=== PATIENT | female | born 1940 | race Caucasian/White ===

== ENCOUNTER 2018-11-17 11:21 | Outpatient (CLI) | payer MEDICARE, OTHER, SELFPAY ==
[2018-11-17 13:32] LABS: Hemoglobin A1C 7.9 % (4.5-6.2)
== END 2018-11-17 11:41 ==
PROVIDERS: PCP Family Medicine; Visit Provider Family Medicine
DX: E11.9 Type 2 diabetes mellitus without complications (principal)
CPT/HCPCS: 36415; 83036

== ENCOUNTER 2019-01-14 14:40 | Emergency (ER) | payer MEDICARE, OTHER, SELFPAY ==
[2019-01-14 14:45] VITALS: BP 136/39; PULSE 63; RESP 16; TEMP 36.7; O2SAT 98
--- NOTE | 2019-01-14 14:46 | ED.GENADUL_ITS ---
Discharge Plan Disposition Patient Disposition: HOME Condition: Stable Discharge Details Chief Complaint: Laceration Clinical Impression: Left foot infection Primary Care Provider: Houston Hilario ED Provider: Mar Meade Home Meds and New Rx's Prescriptions: New cephalexin [Keflex] 500 mg capsule 500 mg PO QID 7 Days Qty: 28 RF: 0 Continued levothyroxine [Synthroid] 175 mcg tablet 175 mcg PO DAILY Qty: 90 RF: 4 lisinopril 5 mg tablet 5 mg PO DAILY Qty: 90 RF: 4 nitroglycerin [Nitrostat] 0.4 mg tablet, sublingual 0.4 mg Sublingual PRN Qty: 25 RF: 0 oxybutynin chloride [Ditropan XL] 10 mg tablet extended release 24hr 10 mg PO DAILY Qty: 90 RF: 4 metoprolol tartrate 50 mg tablet 50 mg PO BID Qty: 180 RF: 4 potassium gluconate 595 mg (99 mg) tablet 595 mg PO DAILY Qty: 90 RF: 3 simvastatin [Zocor] 20 mg tablet 20 mg PO HS Qty: 90 RF: 4 ASPIRIN 81 MG tablet 81 mg PO DAILY RF: 0 ascorbic acid (vitamin C) [Vitamin C] 500 MG tablet 500 mg PO BID RF: 0 loratadine [Claritin] 10 MG tablet 10 mg PO DAILY Qty: 90 RF: 4 Glucosamine Complex-MSM 1 EACH capsule 1 ea PO BID RF: 0 BD Insulin Syringe 1 EACH syringe 1 ea Sub-Q DIRECTED RF: 0 CALCIUM 600 + D TABLET 1 EACH tablet 1 ea PO BID RF: 0 SYSTANE 0.3-0.4% EYE DROPS 5 ML drops 1 drp OU DAILY RF: 0 loperamide [Anti-Diarrheal (loperamide)] 1 MG/5 ML liquid 4 mg PO PRN RF: 0 blood-glucose meter [[place], [place] [employer]Touch Ultra System Kit] 1 EACH kit 1 ea Miscellaneous QID Qty: 1 RF: 0 OneTouch Ultra Test 1 EACH strip 1 strip Sub-Q 5-6x/day Qty: 500 RF: 4 acetaminophen [Tylenol] 325 MG tablet 500 mg PO PRN RF: 0 meclizine 25 MG tablet,chewable 25 mg PO TID PRNQty: 30 RF: 0 Lantus U-100 Insulin 100 UNIT/1 ML solution 50 - 70 unit SQ BID Qty: 13 RF: 4 glipizide 5 MG tablet 5 mg PO BID Qty: 180 RF: 3 tramadol 50 mg tablet 50 - 100 mg PO QID PRN (Reason: back pain) Qty: 100 RF: 0 Novolog U-100 Insulin aspart 100 unit/mL solution 30 - 40 unit subcut AC Qty: 13 RF: 3 ropinirole 0.5 mg tablet 0.5 - 1.5 mg PO HS Qty: 270 RF: 3 buprenorphine [Butrans] 10 mcg/hour patch weekly 1 patch Transdermal weekly Qty: 4 RF: 0 Discharge Instructions Instructions: Cellulitis (ED) Additional Instructions: Keep the left foot clean, dry and covered. Wash the area with soap and water. Take the antibiotics until finished. Follow-up with your primary care doctor in 1 week for reevaluation. Return immediately to the emergency department any worsening or new concerning symptoms such as fever, increasing pain, redness, swelling or red streaking. Discharge Data Discharge Physician: Mar Meade Medical Decision Making 78-year-old female with history of diabetes who presents for left foot pain and foreign body sensation since yesterday. She denies known injury or fever. Her probed around the area last night and caused some bleeding but he did not find anything. Glucose controlled in the 140s. Vitals within normal limits. Patient appears nontoxic. There is a small pinpoint blood blister with an area of mild erythema, edema and tenderness palpation at the base of the lateral left toe near the foot. Will obtain a left foot x-ray to rule out foreign body. Will also anesthetize the area to attempt to probe to look for foreign body and/or open if small amount of pus. 1600 --x-ray negative for foreign body. Area was anesthetized, with a 3 mm incision with a 11 blade scalpel, area was explored and there was no obvious foreign body or pus noted. Area was then soaked in saline with Betadine, covered with antibiotic ointment and a dressing. Patient's had probed the area with a needle and forceps last night which was not cleaned prior to. Discussed that they need to sanitize any instruments before using, and this may have led to a local infection. I do not suspect a puncture wound as she does not recall a specific injury so I do not think fluoroquinolones indicated for puncture. A dose of Keflex was given here as well as a prescription for home. Instructed to keep the area clean, dry and covered, follow-up with the primary care doctor for reevaluation and to return here immediately if worse. Tetanus up to date 2011. Medical Records Medical records reviewed: Yes I reviewed the patient's medical records. Imaging Data Radiologic Study: Radiologist's impression: LEFT FOOT: Three views. No acute fracture or dislocation is seen. No radiopaque foreign bodies are seen in the soft tissues. There is soft tissue swelling about the mid foot. There is a moderate-sized spur at the plantar surface of the calcaneus. IMPRESSION: 1. No acute fracture or foreign body. 2. Soft tissue swelling of the foot. Lab Data Lab results reviewed: Yes I reviewed the patient's lab results. HPI General Mode of arrival: ambulatory . Date/Time Provider Initiated Documentation: 01/14/19 14:43 . Limitations to Documentation: no limitations . Information obtained by: patient . HPI Narrative: Patient is a 78-year-old female who presents with left foot pain and possible foreign body sensation since yesterday. Patient states she wears a soft slippers at home and she is unsure if she stepped on something. She states her last night attempted to take around the area and caused some bleeding but he could not find anything. She denies fever. She states her sugars have been controlled in the 140s. Related Data Home Medications Medication Instructions Recorded Confirmed Aspirin 81 mg PO DAILY tab-cap 01/13/13 01/14/19 BD Insulin Syringe 01/13/13 11/17/18 Calcium 600 + D Tablet 1 ea PO BID 01/13/13 01/14/19 Glucosamine Complex-MSM 1 ea PO BID 01/13/13 01/14/19 Systane 0.3-0.4% Eye Drops 1 drp OU DAILY 01/13/13 01/14/19 ascorbic acid (vitamin C) [Vitamin 500 mg PO BID 01/13/13 01/14/19 C] loratadine [Claritin] 10 mg PO DAILY #90 tab-cap 01/13/13 01/14/19 loperamide [Anti-Diarrheal 4 mg PO PRN ml 05/31/14 01/14/19 (loperamide)] blood-glucose meter [OneTouch #1 kit 06/23/14 11/17/18 Ultra System Kit] OneTouch Ultra Test #500 strip 01/24/17 11/17/18 acetaminophen [Tylenol] 500 mg PO PRN tab-cap 01/16/18 01/14/19 meclizine 25 mg PO TID PRN #30 tab-cap 02/04/18 01/14/19 Lantus U-100 Insulin 50 - 70 unit SQ BID #13 vial 03/13/18 01/14/19 glipizide 5 mg PO BID #180 tab-cap 07/03/18 01/14/19 tramadol 50 mg tablet 50 - 100 mg PO QID PRN #100 tab-cap 08/07/18 01/14/19 insulin aspart U- 100 100 unit/mL 30 - 40 unit SUBCUT AC #13 vial 09/17/18 01/14/19 subcutaneous solution levothyroxine 175 mcg tablet 175 mcg PO DAILY #90 tab-cap 11/17/18 01/14/19 lisinopril 5 mg tablet 5 mg PO DAILY #90 tab-cap 11/17/18 01/14/19 metoprolol tartrate 50 mg tablet 50 mg PO BID #180 tab-cap 11/17/18 01/14/19 nitroglycerin 0.4 mg sublingual 0.4 mg SUBLINGUAL PRN #25 tab-cap 11/17/18 01/14/19 tablet oxybutynin chloride ER 10 mg 10 mg PO DAILY #90 tab-cap 11/17/18 01/14/19 tablet,extended release 24 hr potassium gluconate 595 mg (99 mg) 595 mg PO DAILY #90 tab 11/17/18 01/14/19 tablet simvastatin 20 mg tablet 20 mg PO HS #90 tab-cap 11/17/18 01/14/19 ropinirole 0.5 mg tablet 0.5 - 1.5 mg PO HS #270 tab-cap 12/01/18 01/14/19 buprenorphine 10 mcg/hour weekly 1 patch TRANSDERMAL weekly #4 patch 12/18/18 01/14/19 transdermal patch cephalexin [Keflex] 500 mg PO QID 7 Days #28 cap 01/14/19 Previous Rx's Medication Instructions Recorded Lantus U-100 Insulin 50 - 70 unit SQ BID #13 vial 03/13/18 glipizide 5 mg PO BID #180 tab-cap 07/03/18 tramadol 50 mg tablet 50 - 100 mg PO QID PRN #100 tab-cap 08/07/18 insulin aspart U- 100 100 unit/mL 30 - 40 unit SUBCUT AC #13 vial 09/17/18 subcutaneous solution levothyroxine 175 mcg tablet 175 mcg PO DAILY #90 tab-cap 11/17/18 lisinopril 5 mg tablet 5 mg PO DAILY #90 tab-cap 11/17/18 metoprolol tartrate 50 mg tablet 50 mg PO BID #180 tab-cap 11/17/18 nitroglycerin 0.4 mg sublingual 0.4 mg SUBLINGUAL PRN #25 tab-cap 11/17/18 tablet oxybutynin chloride ER 10 mg 10 mg PO DAILY #90 tab-cap 11/17/18 tablet,extended release 24 hr potassium gluconate 595 mg (99 mg) 595 mg PO DAILY #90 tab 11/17/18 tablet simvastatin 20 mg tablet 20 mg PO HS #90 tab-cap 11/17/18 ropinirole 0.5 mg tablet 0.5 - 1.5 mg PO HS #270 tab-cap 12/01/18 buprenorphine 10 mcg/hour weekly 1 patch TRANSDERMAL weekly #4 patch 12/18/18 transdermal patch cephalexin [Keflex] 500 mg PO QID 7 Days #28 cap 01/14/19 Allergies Allergy/AdvReac Type Severity Reaction Status Date / Time lansoprazole AdvReac Intermediate anxiety Unverified 01/14/19 14:56 metoclopramide AdvReac Intermediate anxiety Unverified 01/14/19 14:56 erythromycin base AdvReac Unverified 01/14/19 14:56 ibuprofen AdvReac ABNORMAL Unverified 01/14/19 14:56 KIDNEY FUNCTIONS metformin AdvReac DIARRHEA Unverified 01/14/19 14:56 morphine patch AdvReac Intermediate Skin burn Uncoded 01/14/19 14:56 Review of Systems Review of Systems All systems reviewed & are unremarkable except as noted in HPI and below Constitutional Reports as per HPI, Denies chills and Denies fever(s) Eyes Denies blurry vision ENT Denies dizziness, Denies sore throat and Denies throat swelling Cardiovascular Denies chest pain and Denies dyspnea Respiratory Denies cough and Denies dyspnea Gastrointestinal Denies abdominal pain, Denies diarrhea and Denies vomiting Genitourinary Denies hematuria and Denies dysuria Musculoskeletal Denies back pain and Denies numbness Integumentary/Breasts Denies lesions and Denies rash Neurologic Denies dizziness, Denies focal weakness and Denies numbness Allergic/Immunologic Denies throat swelling [facility] Medical History Acute renal failure syndrome Atherosclerosis of coronary artery Diabetes mellitus, type 2 Essential hypertension Hypercholesterolemia Myocardial infarction bladder cancer Surgical History Amputation Appendectomy Biopsy of breast CARPAL TUNNEL Cholecystectomy Colonoscopy - IV Sedation EGD - IV Sedation Extraction of cataract PROCEDURES Stent placement (~1996) Family History Mother Diabetes Essential hypertension Heart disease Hyperlipidemia Father Diabetes Essential hypertension Heart disease Hyperlipidemia Myocardial infarction Sister No problems noted. Brother Essential hypertension Heart disease Hyperlipidemia Myocardial infarction Grandfather No problems noted. Grandfather No problems noted. Grandmother Diabetes Essential hypertension Hyperlipidemia Grandmother No problems noted. Son No problems noted. Daughter No problems noted. Social History Smoking/Tobacco Use Status: Former Tobacco Use Quit Date: 12/07/85 Alcohol Intake: current Alcohol Intake frequency: holidays/special occasions only Drug use: Never Substance use type: does not use Do you feel safe at home: Yes Do you feel safe in your relationship?: Yes Exam Const General: cooperative, healthy appearing and no acute distress HENMT Head: normal to inspection Mouth: oral mucosae normal Eyes General: appearance normal, both eyes and all related structures Neck Neck: normal visual inspection Resp Effort & Inspection: normal respiratory effort and able to speak in complete sentences Cardio Rate: regular rate Skin General skin exam: no rashes or lesions noted Neuro General: alert, awake and oriented x3 Motor: muscle tone normal throughout Extrem Other: Left foot on lateral aspect near base of fifth toe notes a pinpoint area of a blood blister with a 1 cm area of circumferential erythema and mild edema with tenderness palpation. No obvious abscess. Psych Appearance: grossly normal Affect: normal affect Procedures Abscess I/D Site: Foot Side (if applicable): Left Local Anesthetic: Lidocaine 1% Amount of anesthesia used (mL): 2 Technique: Incised with #11 Blade Irrigation: Yes Packing used?: None Complications: Other (3mm incision made with blade. Area probed with forceps and no foreign body. No pus drainage)
--- NOTE | 2019-01-14 15:26 | DI.RAD_ITS ---
SYMPTOMS/DIAGNOSIS: LEFT LATERAL BASE OF 5TH TOE REDNESS, PAIN, ? FRACTURE VS FOREIGN BODY LEFT FOOT: Three views. No acute fracture or dislocation is seen. No radiopaque foreign bodies are seen in the soft tissues. There is soft tissue swelling about the mid foot. There is a moderate-sized spur at the plantar surface of the calcaneus. IMPRESSION: 1. No acute fracture or foreign body. 2. Soft tissue swelling of the foot.
[2019-01-14] MEDS: Cephalexin 500 MG CAP PO (16:22)
[2019-01-14 16:54] VITALS: BP 136/39; PULSE 63; RESP 16; TEMP 36.7; O2SAT 98
== END 2019-01-14 16:55 | disposition home or self-care (01) ==
PROVIDERS: Emergency Provider Physician Assistant; PCP Family Medicine
DX: L08.9 Local infection of the skin and subcutaneous tissue, unspecified (principal); I10 Essential (primary) hypertension; E11.9 Type 2 diabetes mellitus without complications; Z79.4 Long term (current) use of insulin
CPT/HCPCS: 99283; 73630

== ENCOUNTER 2019-03-05 11:39 | Outpatient (CLI) | payer MEDICARE, OTHER, SELFPAY ==
[2019-03-05 13:16] LABS: CREATININE 1.18 mg/dL (0.55-1.02); Estimated GFR 44.18 (mL/min/1.73m2); Potassium 4.2 mmol/L (3.5-5.1); TSH (W/Ref FT4) 0.66 uIU/mL (0.358-3.74)
== END 2019-03-05 11:59 ==
PROVIDERS: PCP Family Medicine; Visit Provider Family Medicine
DX: I10 Essential (primary) hypertension (principal); E11.9 Type 2 diabetes mellitus without complications; E03.9 Hypothyroidism, unspecified
CPT/HCPCS: 36415; 82565; 83036; 84132; 84443

== ENCOUNTER 2019-04-15 16:26 | Emergency (ER) | payer MEDICARE, OTHER, SELFPAY ==
[2019-04-15 16:33] VITALS: BP 155/54; PULSE 67; RESP 16; TEMP 36.7; O2SAT 96
--- NOTE | 2019-04-15 16:41 | DI.RAD_ITS ---
SYMPTOM/DIAGNOSIS: SKILL SAW TO FINGER TIPS LEFT HAND: Three views. There is a markedly comminuted and displaced fracture of the terminal tuft of the left middle finger with adjacent soft tissue swelling. There is a markedly comminuted and displaced fracture involving the terminal tuft of the left index finger with adjacent soft tissue swelling. No other fracture or dislocation is seen. No radiopaque foreign bodies are seen in the soft tissues. Mild degenerative changes are seen at the hand. There are marked degenerative changes seen at the first carpal metacarpal joint. IMPRESSION: Severely comminuted and displaced fractures involving the terminal augustin of the left middle and index fingers.
--- NOTE | 2019-04-15 16:47 | ED.GENADUL_ITS ---
Discharge Plan Disposition Patient Disposition: HOME Condition: Good Discharge Details Chief Complaint: Laceration Clinical Impression: Finger laceration, Finger fracture Primary Care Provider: Houston Hilario ED Provider: Fredy Whittaker Home Meds and New Rx's Prescriptions: New cephalexin [Keflex] 500 mg capsule 500 mg PO QID 7 Days Qty: 28 RF: 0 No Action Novolog U-100 Insulin aspart 100 unit/mL solution 20 - 40 unit subcut AC Qty: 13 RF: 3 Lantus U-100 Insulin 100 unit/mL solution 30 - 50 unit subcut BID Qty: 8 RF: 4 tramadol 50 mg tablet 50 - 100 mg PO QID PRN (Reason: back pain) Qty: 100 RF: 0 levothyroxine [Synthroid] 175 mcg tablet 175 mcg PO DAILY Qty: 90 RF: 4 lisinopril 5 mg tablet 5 mg PO DAILY Qty: 90 RF: 4 nitroglycerin [Nitrostat] 0.4 mg tablet, sublingual 0.4 mg Sublingual PRN Qty: 25 RF: 0 oxybutynin chloride [Ditropan XL] 10 mg tablet extended release 24hr 10 mg PO DAILY Qty: 90 RF: 4 metoprolol tartrate 50 mg tablet 50 mg PO BID Qty: 180 RF: 4 potassium gluconate 595 mg (99 mg) tablet 595 mg PO DAILY Qty: 90 RF: 3 simvastatin [Zocor] 20 mg tablet 20 mg PO HS Qty: 90 RF: 4 ASPIRIN 81 MG tablet 81 mg PO DAILY RF: 0 ascorbic acid (vitamin C) [Vitamin C] 500 MG tablet 500 mg PO BID RF: 0 loratadine [Claritin] 10 MG tablet 10 mg PO DAILY Qty: 90 RF: 4 Glucosamine Complex-MSM 1 EACH capsule 1 ea PO BID RF: 0 BD Insulin Syringe 1 EACH syringe 1 ea Sub-Q DIRECTED RF: 0 CALCIUM 600 + D TABLET 1 EACH tablet 1 ea PO BID RF: 0 SYSTANE 0.3-0.4% EYE DROPS 5 ML drops 1 drp OU DAILY RF: 0 loperamide [Anti-Diarrheal (loperamide)] 1 MG/5 ML liquid 4 mg PO PRN RF: 0 blood-glucose meter [[employer] Ultra System Kit] 1 EACH kit 1 ea Miscellaneous QID Qty: 1 RF: 0 OneTouch Ultra Test 1 EACH strip 1 strip Sub-Q 5-6x/day Qty: 500 RF: 4 acetaminophen [Tylenol] 325 MG tablet 500 mg PO PRN RF: 0 meclizine 25 MG tablet,chewable 25 mg PO TID PRNQty: 30 RF: 0 glipizide 5 MG tablet 5 mg PO BID Qty: 180 RF: 3 ropinirole 0.5 mg tablet 0.5 - 1.5 mg PO HS Qty: 270 RF: 3 buprenorphine [Butrans] 10 mcg/hour patch weekly 1 patch Transdermal weekly Qty: 4 RF: 0 Discharge Instructions Instructions: Finger Fracture (ED), Finger Laceration (ED) Additional Instructions: Will be contacted by the orthopedic surgeon for an appointment. You can change the dressing on your fingers for the dry dressing daily. Please you leave the yellow dressing. Please take the antibiotic as directed. Please take Tylenol and Motrin for control of your pain. If you notice redness, discharge, worsening pain please return immediately for reassessment. Referrals: Medhat Sanon MD [ [facility] STAFF PHYSICIAN] - Medical Decision Making This is a pleasant 78-year-old female with past medical history of diabetes and coronary artery disease who presents today for evaluation of laceration to her nondominant index and middle finger on the left hand. It occurred an hour ago. A skill saw cut the tips of her fingers. Exam demonstrates notably destroyed distal tip of the index finger with a remove nail, and some bony exposure, in conjunction with a linear laceration of the distal tip of the middle finger. We will get an x-ray to evaluate for bony destruction. She will require laceration repair, however I am concerned that she may require removal of components of the bone for wound edge approximation for her index finger. Tetanus is up-to-date X-ray results do demonstrate evidence of severely comminuted fractures the distal components of the phalanx for the middle and index finger. The nail is completely gone for the middle finger, and multiple bony fragments are present. We did attempt to contact Dr. Cavanaugh who is on-call over 4 times, after 2 hours of no response, registration did contact Dr. Sanon, who then contacted the ED. The images on x-ray, as well as secure images of the patient's fingers were sent to Dr. Sanon which she reviewed. At this time he recommends suturing for basic wound edge reapproximation, and close outpatient follow-up for potential amputation. 7 simple interrupted sutures with 4-0 Ethilon were placed between the 2 fingers, for basic wound edge reapproximation. The area was then covered with nonadhesive gauze, and then bandaged with gauze. The patient tolerated this well. Secondary to the open component, the patient was given a dose of Keflex here in the ED and will be given a prescription for home Keflex. We discussed the importance of prompt follow-up, as well as red flags for which to immediately return. I suspect both a bony and ligamentous injury component. Of note after the patient was discharged, Dr. Cavanaugh did call back, as there had been an issue with his pager and phone. The case was again discussed with him as well as the plan directed by Dr. Medhat Sanon. He agrees with the decision, and has no additional recommendations at this time. I have exte nsively reviewed the treatment plan and discharge instructions with the patient and their family. I have addressed all patient concerns at this time. The patient and family was made aware of what symptoms to monitor for that would warrant a return to the emergency department. Discussed the plan with the patient and family, they demonstrate verbal understanding and agreement with our assessment and plan at this time. Laceration repair: Patient's index and middle finger were blocked with a 50-50 mixture of lidocaine and bupivacaine, digital block was performed with a total of 10 cc of this mix ture being placed. Patient tolerated this well and achieved complete anesthesia of the fingertips. After this, the areas were scrubbed vigorously with normal saline and chlorhexidine scrub wrist. Excess bony and skin tissue were removed. 3 simple interrupted sutures were placed on the middle finger for generalized wound edge reapproximation. This is notably limited secondary to the comminuted fracture below the nail remnant. 4 simple interrupted sutures were placed on the index finger, for wound edge reapproximation. Patient tolerated this as well. The area was then dressed appropriately. CLINICAL HISTORY: 78 years old, female; Pain; Finger(s) and hand; Left; Patient HX: Skill saw injury to lt fingers (middle \T\ index). TECHNIQUE: Imaging protocol: XR Left hand. Views: 3 or more views. COMPARISON: No relevant prior studies available. FINDINGS: Bones/joints: Severely comminuted fractures/partial amputation of the augustin of the middle finger distal phalanx with severe distraction of minute fracture fragments. Similar fracture/partial amputation to the tuft of the index finger distal phalanx, however with lesser degree of distraction of minute fracture fragments. No other acutely displaced fractures are otherwise seen. Severe osteoarthritis at the first and second carpometacarpal joints, as manifested by almost complete loss of the joint space, subchondral sclerosis, subchondral cyst formation, marginal osteophyte formation. Soft tissues: Significant soft tissue swelling, laceration, and nail injury suggested at the tips of the index and middle fingers. IMPRESSION: 1. Severely comminuted fractures/partial amputations of the distal phalanx augustin of the middle and index fingers (distal augustin appear essentially macerated) with associated significant soft tissue and nail injury, as detailed above. 2. Osteoarthritis. Dictated and Authenticated by: Ousmane Rodriguez MD. Ordering:REBECCA Daniel MD HPI General Date/Time Provider Initiated Documentation: 04/15/19 16:36 . HPI Narrative: This is a 78-year-old female who takes a daily aspirin whose tetanus was updated in 2011 with a past medical history of diabetes, coronary artery disease who presents today for evaluation of laceration to her left nondominant hand on the index middle finger. She is working with a skill saw when it caught the tips of her fingers on these 2 fingers. She does admit to slight tingling sensation on the distal tips, but denies any other complaints. This occurred roughly 1 hour ago. She denies any pain in her hand arm face chest abdomen or pelvis. No other modifying factors. No other injuries. Related Data Home Medications Medication Instructions Recorded Confirmed Aspirin 81 mg PO DAILY tab-cap 01/13/13 04/15/19 BD Insulin Syringe 01/13/13 03/05/19 Calcium 600 + D Tablet 1 ea PO BID 01/13/13 04/15/19 Glucosamine Complex-MSM 1 ea PO BID 01/13/13 04/15/19 Systane 0.3-0.4% Eye Drops 1 drp OU DAILY 01/13/13 04/15/19 ascorbic acid (vitamin C) [Vitamin 500 mg PO BID 01/13/13 04/15/19 C] loratadine [Claritin] 10 mg PO DAILY #90 tab-cap 01/13/13 04/15/19 loperamide [Anti-Diarrheal 4 mg PO PRN ml 05/31/14 04/15/19 (loperamide)] blood-glucose meter [OneTouch #1 kit 06/23/14 03/05/19 Ultra System Kit] [employer] Social[employer] Ultra Test #500 strip 01/24/17 03/05/19 acetaminophen [Tylenol] 500 mg PO PRN tab-cap 01/16/18 04/15/19 meclizine 25 mg PO TID PRN #30 tab-cap 02/04/18 04/15/19 glipizide 5 mg PO BID #180 tab-cap 07/03/18 04/15/19 levothyroxine 175 mcg tablet 175 mcg PO DAILY #90 tab-cap 11/17/18 04/15/19 lisinopril 5 mg tablet 5 mg PO DAILY #90 tab-cap 11/17/18 04/15/19 metoprolol tartrate 50 mg tablet 50 mg PO BID #180 tab-cap 11/17/18 04/15/19 nitroglycerin 0.4 mg sublingual 0.4 mg SUBLINGUAL PRN #25 tab-cap 11/17/18 04/15/19 tablet oxybutynin chloride ER 10 mg 10 mg PO DAILY #90 tab-cap 11/17/18 04/15/19 tablet,extended release 24 hr potassium gluconate 595 mg (99 mg) 595 mg PO DAILY #90 tab 11/17/18 04/15/19 tablet simvastatin 20 mg tablet 20 mg PO HS #90 tab-cap 11/17/18 04/15/19 ropinirole 0.5 mg tablet 0.5 - 1.5 mg PO HS #270 tab-cap 12/01/18 04/15/19 buprenorphine 10 mcg/hour weekly 1 patch TRANSDERMAL weekly #4 patch 03/01/19 04/15/19 transdermal patch insulin aspart U- 100 100 unit/mL 20 - 40 unit SUBCUT AC #13 vial 03/05/19 04/15/19 subcutaneous solution insulin glargine (U- 100) 100 30 - 50 unit SUBCUT BID #8 vial 03/05/19 04/15/19 unit/mL subcutaneous solution tramadol 50 mg tablet 50 - 100 mg PO QID PRN #100 tab-cap 03/05/19 04/15/19 cephalexin [Keflex] 500 mg PO QID 7 Days #28 cap 04/15/19 Previous Rx's Medication Instructions Recorded glipizide 5 mg PO BID #180 tab-cap 07/03/18 levothyroxine 175 mcg tablet 175 mcg PO DAILY #90 tab-cap 11/17/18 lisinopril 5 mg tablet 5 mg PO DAILY #90 tab-cap 11/17/18 metoprolol tartrate 50 mg tablet 50 mg PO BID #180 tab-cap 11/17/18 nitroglycerin 0.4 mg sublingual 0.4 mg SUBLINGUAL PRN #25 tab-cap 11/17/18 tablet oxybutynin chloride ER 10 mg 10 mg PO DAILY #90 tab-cap 11/17/18 tablet,extended release 24 hr potassium gluconate 595 mg (99 mg) 595 mg PO DAILY #90 tab 11/17/18 tablet simvastatin 20 mg tablet 20 mg PO HS #90 tab-cap 11/17/18 ropinirole 0.5 mg tablet 0.5 - 1.5 mg PO HS #270 tab-cap 12/01/18 buprenorphine 10 mcg/hour weekly 1 patch TRANSDERMAL weekly #4 patch 03/01/19 transdermal patch insulin aspart U- 100 100 unit/mL 20 - 40 unit SUBCUT AC #13 vial 03/05/19 subcutaneous solution insulin glargine (U- 100) 100 30 - 50 unit SUBCUT BID #8 vial 03/05/19 unit/mL subcutaneous solution tramadol 50 mg tablet 50 - 100 mg PO QID PRN #100 tab-cap 03/05/19 cephalexin [Keflex] 500 mg PO QID 7 Days #28 cap 04/15/19 Allergies Allergy/AdvReac Type Severity Reaction Status Date / Time lansoprazole AdvReac Intermediate anxiety Unverified 04/15/19 16:37 metoclopramide AdvReac Intermediate anxiety Unverified 04/15/19 16:37 erythromycin base AdvReac Unverified 04/15/19 16:37 ibuprofen AdvReac ABNORMAL Unverified 04/15/19 16:37 KIDNEY FUNCTIONS metformin AdvReac DIARRHEA Unverified 04/15/19 16:37 morphine patch AdvReac Intermediate Skin burn Uncoded 04/15/19 16:37 General Stated Complaint: Laceration PAUL: 3 Review of Systems Review of Systems All systems reviewed & are unremarkable except as noted in HPI and below PFSH Social History Smoking/Tobacco Use Status: Former Tobacco Use Quit Date: 12/07/85 Alcohol Intake: current Alcohol Intake frequency: holidays/special occasions only Drug use: Never Substance use type: does not use Do you feel safe at home: Yes Do you feel safe in your relationship?: Yes Exam Narrative Exam Narrative: 1.Const: Well-nourished, Well-developed, appearing stated age 2.Eyes: PERRL, no conjunctival injection, and symmetrical lids. 3.ENT: Atraumatic external nose and ears. Moist MM. Neck: Symmetric, trachea midline, No thyromegaly. 4.CVS: +S1/S2, No murmurs or gallops. Peripheral pulses 2+ and equal in all extremities. Brisk capillary refill in all extremities. 5.RESP: Unlabored respiratory effort. Clear to auscultation bilaterally. No wheezes rales or rhonchi 6.GI: Soft, Nontender/Nondistended, No hepatosplenomegaly. No guarding or rebound. 7.MSK: Exam demonstrates removal of the nail for the index finger with destruction of the distal tip, potential bony exposure. Middle finger demonstrates laceration over the distal tip of the fingers well. She is able to flex and extend the distal tips, however extension of the index finger is more limited secondary to pain. I do suspect a tendon injury though. Sensation including two-point discrimination is intact on the lateral aspects of the finger however on the distal tip sensation is intact but notably reduced. Unable to differentiate between two-point discrimination over the masticated tissue. 8.Skin: Please see musculoskeletal 9.Neuro: conference planning manager II-XII grossly intact. Please see muscu skeletal 10.Psych: (AAO) x3. Appropriate mood and affect Course Vital Signs Temperature 36.7 C 04/15/19 16:33 Pulse 67 04/15/19 16:33 Respiratory Rate 16 04/15/19 16:33 Blood Pressure 155/54 H 04/15/19 16:33 Pulse Oximetry 96 04/15/19 16:33 Temperature 36.7 C 04/15/19 16:33 Temperature Source Skin 04/15/19 16:33 Pulse 67 04/15/19 16:33 Respiratory Rate 16 04/15/19 16:33 Respiratory Effort Non-Labored 04/15/19 16:35 Blood Pressure 155/54 H 04/15/19 16:33 Pulse Oximetry 96 04/15/19 16:33 Pain Level 5 04/15/19 16:33
--- NOTE | 2019-04-15 17:37 | DI.VRAD_ITS ---
EXAM: XR Left Hand EXAM DATE/TIME: 04/15/2019 4:54 PM CLINICAL HISTORY: 78 years old, female; Pain; Finger(s) and hand; Left; Patient HX: Skill saw injury to lt fingers (middle \T\ index). TECHNIQUE: Imaging protocol: XR Left hand. Views: 3 or more views. COMPARISON: No relevant prior studies available. FINDINGS: Bones/joints: Severely comminuted fractures/partial amputation of the augustin of the middle finger distal phalanx with severe distraction of minute fracture fragments. Similar fracture/partial amputation to the tuft of the index finger distal phalanx, however with lesser degree of distraction of minute fracture fragments. No other acutely displaced fractures are otherwise seen. Severe osteoarthritis at the first and second carpometacarpal joints, as manifested by almost complete loss of the joint space, subchondral sclerosis, subchondral cyst formation, marginal osteophyte formation. Soft tissues: Significant soft tissue swelling, laceration, and nail injury suggested at the tips of the index and middle fingers. IMPRESSION: 1. Severely comminuted fractures/partial amputations of the distal phalanx augustin of the middle and index fingers (distal augustin appear essentially macerated) with associated significant soft tissue and nail injury, as detailed above. 2. Osteoarthritis. Dictated and Authenticated by: Ousmane Rodriguez MD. Ordering:REBECCA Daniel MD
[2019-04-15] MEDS: Cephalexin 500 MG CAP PO (20:05)
[2019-04-15 20:06] VITALS: BP 155/54; PULSE 67; RESP 16; O2SAT 96
== END 2019-04-15 20:00 | disposition home or self-care (01) ==
PROVIDERS: Emergency Provider Student in an Organized Health Care Education/Training Program; PCP Family Medicine
DX: S62.631B Displaced fracture of distal phalanx of left index finger, initial encounter for open fracture (principal); S62.633B Displaced fracture of distal phalanx of left middle finger, initial encounter for open fracture; W31.2XXA Contact with powered woodworking and forming machines, initial encounter; I25.10 Atherosclerotic heart disease of native coronary artery without angina pectoris; E11.9 Type 2 diabetes mellitus without complications; I10 Essential (primary) hypertension; Z79.4 Long term (current) use of insulin
CPT/HCPCS: 12002; 26720; 73130

== ENCOUNTER 2019-04-16 10:51 | Day surgery (SDC) | payer MEDICARE, OTHER, SELFPAY ==
[2019-04-16 11:05] VITALS: BP 146/66; PULSE 64; RESP 18; TEMP 36.3; O2SAT 98
[2019-04-16] MEDS: Normal Saline Flush 10 ML SYR IV (11:59)
--- NOTE | 2019-04-16 13:26 | W.PM.DSUDISC ---
Discharge Plan Disposition Patient Disposition: HOME Condition: Good Discharge Details Reason For Visit: LIF, LMF partial amputation Attending Provider: Medhat Sanon Primary Care Provider: [place] Hilario Home Meds and New Rx's Prescriptions: New acetaminophen 500 mg tablet 1,000 mg PO Q8H PRN (Reason: pain) Qty: 60 RF: 3 ibuprofen 600 mg tablet 600 mg PO TID PRNQty: 30 RF: 3 Continued Novolog U-100 Insulin aspart 100 unit/mL solution 20 - 40 unit subcut AC Qty: 13 RF: 3 Lantus U-100 Insulin 100 unit/mL solution 30 - 50 unit subcut BID Qty: 8 RF: 4 tramadol 50 mg tablet 50 - 100 mg PO QID PRN (Reason: back pain) Qty: 100 RF: 0 levothyroxine [Synthroid] 175 mcg tablet 175 mcg PO DAILY Qty: 90 RF: 4 lisinopril 5 mg tablet 5 mg PO DAILY Qty: 90 RF: 4 nitroglycerin [Nitrostat] 0.4 mg tablet, sublingual 0.4 mg Sublingual PRN Qty: 25 RF: 0 oxybutynin chloride [Ditropan XL] 10 mg tablet extended release 24hr 10 mg PO DAILY Qty: 90 RF: 4 metoprolol tartrate 50 mg tablet 50 mg PO BID Qty: 180 RF: 4 potassium gluconate 595 mg (99 mg) tablet 595 mg PO DAILY Qty: 90 RF: 3 simvastatin [Zocor] 20 mg tablet 20 mg PO HS Qty: 90 RF: 4 ASPIRIN 81 MG tablet 81 mg PO DAILY RF: 0 ascorbic acid (vitamin C) [Vitamin C] 500 MG tablet 500 mg PO BID RF: 0 loratadine [Claritin] 10 MG tablet 10 mg PO DAILY Qty: 90 RF: 4 Glucosamine Complex-MSM 1 EACH capsule 1 ea PO BID RF: 0 BD Insulin Syringe 1 EACH syringe 1 ea Sub-Q DIRECTED RF: 0 CALCIUM 600 + D TABLET 1 EACH tablet 1 ea PO BID RF: 0 SYSTANE 0.3-0.4% EYE DROPS 5 ML drops 1 drp OU DAILY RF: 0 loperamide [Anti-Diarrheal (loperamide)] 1 MG/5 ML liquid 4 mg PO PRN RF: 0 blood-glucose meter [[employer] Ultra System Kit] 1 EACH kit 1 ea Miscellaneous QID Qty: 1 RF: 0 OneTouch Ultra Test 1 EACH strip 1 strip Sub-Q 5-6x/day Qty: 500 RF: 4 meclizine 25 MG tablet,chewable 25 mg PO TID PRNQty: 30 RF: 0 glipizide 5 MG tablet 5 mg PO BID Qty: 180 RF: 3 ropinirole 0.5 mg tablet 0.5 - 1.5 mg PO HS Qty: 270 RF: 3 buprenorphine [Butrans] 10 mcg/hour patch weekly 1 patch Transdermal weekly Qty: 4 RF: 0 cephalexin [Keflex] 500 mg capsule 500 mg PO QID 7 Days Qty: 28 RF: 0 Discontinued acetaminophen [Tylenol] 325 MG tablet 500 mg PO PRN RF: 0 Discharge Instructions Additional Instructions: Activity: You should limit using the operative fingers. Elevate as much as possible. Dressings: You should keep the initial surgical dressing in place until your follow-up. If the tails wrapped around the wrist bother or become loose, you may cut them off. If the dressing comes off, you can replace with a light gauze wrap. You should keep the dressings and the wound clean at all times. Medications: - You should take Tylenol and Ibuprofen around the clock as prescribed or per aircraft pneudraulic systems mechanic's recommendations. 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
--- NOTE | 2019-04-16 13:28 | HPE_ITS ---
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 Based on the pictures and the x-rays there is bony involvement as well as nail involvement. I am concerne d that she does not have adequate coverage of the distal phalanx the middle finger. This was a dirty injury with a complex laceration and therefore the plan will be for operative debridement with evaluation. I want to ensure that the bone is well covered. There is many bony fragment seen on the x-ray which we will hopefully debride. My attempt will be to close this without putting stress on the sterile matrix. However, if there is no sterile matrix adherent to the distal phalanx of the middle finger then we will perform a revision imitation. I discussed all these options with Maria Dolores. I reviewed the risk of the procedure to include bleeding, infection, pain, stiffness, dysesthesias and cold intolerance, infection, need for repeat procedures, need for revision amputation, nail deformity. Despite these risks, she elected to proceed. 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 Her fingers excellently caught the blade of the table saw with notable deformity. She was seen in the emergency department by Dr. Whittaker. He had concern about the viability of the some the tissue as well as the exposed bone in the area. The wounds were generously irrigated and temporally closed and I recommended operative debridement and evaluation with possible revision amputation or complex repair. Maria Dolores denies having much pain. She does have a amputation on her right middle finger for infection. She has had no drainage from the wounds. She denies any fevers or chills. She has been taking antibiotics. Review of Systems Review of Systems All systems reviewed & are unremarkable except as noted in HPI and below PFSH Medical History Acute renal failure syndrome Atherosclerosis of coronary artery Diabetes mellitus, type 2 Essential hypertension Hypercholesterolemia Myocardial infarction bladder cancer Surgical History Amputation Appendectomy Biopsy of breast CARPAL TUNNEL Cholecystectomy Colonoscopy - IV Sedation EGD - IV Sedation Extraction of cataract PROCEDURES Stent placement (~1996) Family History Mother Diabetes Essential hypertension Heart disease Hyperlipidemia Father Diabetes Essential hypertension Heart disease Hyperlipidemia Myocardial infarction Sister No problems noted. Brother Essential hypertension Heart disease Hyperlipidemia Myocardial infarction Grandfather No problems noted. Grandfather No problems noted. Grandmother Diabetes Essential hypertension Hyperlipidemia Grandmother No problems noted. Son No problems noted. Daughter No problems noted. Social History Smoking/Tobacco Use Status: Former Tobacco Use Quit Date: 12/07/85 Alcohol Intake: current Alcohol Intake frequency: holidays/special occasions only Drug use: Never Substance use type: does not use Do you feel safe at home: Yes Do you feel safe in your relationship?: Yes Meds Home Medications Medication Instructions Recorded Confirmed Type Aspirin 81 mg PO DAILY tab-cap 01/13/13 04/16/19 History BD Insulin Syringe 01/13/13 03/05/19 History Calcium 600 + D Tablet 1 ea PO BID 01/13/13 04/16/19 History Glucosamine Complex-MSM 1 ea PO BID 01/13/13 04/16/19 History Systane 0.3-0.4% Eye Drops 1 drp OU DAILY 01/13/13 04/16/19 History ascorbic acid (vitamin C) [Vitamin 500 mg PO BID 01/13/13 04/16/19 History C] loratadine [Claritin] 10 mg PO DAILY #90 tab-cap 01/13/13 04/16/19 History loperamide [Anti-Diarrheal 4 mg PO PRN ml 05/31/14 04/15/19 History (loperamide)] blood-glucose meter [OneTouch #1 kit 06/23/14 03/05/19 History Ultra System Kit] OneTouch Ultra Test #500 strip 01/24/17 03/05/19 History meclizine 25 mg PO TID PRN #30 tab-cap 02/04/18 04/16/19 History glipizide 5 mg PO BID #180 tab-cap 07/03/18 04/16/19 Rx levothyroxine 175 mcg tablet 175 mcg PO DAILY #90 tab-cap 11/17/18 04/16/19 Rx lisinopril 5 mg tablet 5 mg PO DAILY #90 tab-cap 11/17/18 04/16/19 Rx metoprolol tartrate 50 mg tablet 50 mg PO BID #180 tab-cap 11/17/18 04/16/19 Rx nitroglycerin 0.4 mg sublingual 0.4 mg SUBLINGUAL PRN #25 tab-cap 11/17/18 04/16/19 Rx tablet oxybutynin chloride ER 10 mg 10 mg PO DAILY #90 tab-cap 11/17/18 04/16/19 Rx tablet,extended release 24 hr potassium gluconate 595 mg (99 mg) 595 mg PO DAILY #90 tab 11/17/18 04/16/19 Rx tablet simvastatin 20 mg tablet 20 mg PO HS #90 tab-cap 11/17/18 04/16/19 Rx ropinirole 0.5 mg tablet 0.5 - 1.5 mg PO HS #270 tab-cap 12/01/18 04/16/19 Rx buprenorphine 10 mcg/hour weekly 1 patch TRANSDERMAL weekly #4 patch 03/01/19 04/16/19 Rx transdermal patch insulin aspart U- 100 100 unit/mL 20 - 40 unit SUBCUT AC #13 vial 03/05/19 04/16/19 Rx subcutaneous solution insulin glargine (U- 100) 100 30 - 50 unit SUBCUT BID #8 vial 03/05/19 04/16/19 Rx unit/mL subcutaneous solution tramadol 50 mg tablet 50 - 100 mg PO QID PRN #100 tab-cap 03/05/19 04/16/19 Rx cephalexin [Keflex] 500 mg PO QID 7 Days #28 cap 04/15/19 04/16/19 Rx acetaminophen 1,000 mg PO Q8H PRN #60 tab 04/16/19 Rx ibuprofen 600 mg PO TID PRN #30 tab 04/16/19 Rx Allergies Allergy/AdvReac Type Severity Reaction Status Date / Time lansoprazole AdvReac Intermediate anxiety Unverified 04/16/19 11:22 metoclopramide AdvReac Intermediate anxiety Unverified 04/16/19 11:22 erythromycin base AdvReac Unverified 04/16/19 11:22 ibuprofen AdvReac ABNORMAL Unverified 04/16/19 11:22 KIDNEY FUNCTIONS metformin AdvReac DIARRHEA Unverified 04/16/19 11:22 morphine patch AdvReac Intermediate Skin burn Uncoded 04/16/19 11:22 Exam Narrative Exam Narrative: Evaluation of the left hand shows the digits are wrapped in a ga uze dressing. There is some very mild segments discharge. She is able to move the digits without significant difficulty. The dressings were not removed. Pictures from the injury were evaluated demonstrating a complex laceration through the nail of both index and middle finger with some tissue loss and deformity. The fingertips are warm and well-perfused. Results Last Vital Signs Temp 36.3 C L 04/16/19 11:05 Pulse 64 04/16/19 11:05 Resp 18 04/16/19 11:05 BP 146/66 H 04/16/19 11:05 Pulse Ox 98 04/16/19 11:05
[2019-04-16] MEDS: ceFAZolin 2 GM/50 ML BAG IVPB (13:36)
[2019-04-16] MEDS: Sodium Bicarbonate 50 MEQ/50 ML VIAL (13:42)
[2019-04-16] MEDS: Lidocaine 1% Multi-Dose 50 ML VIAL (13:42)
[2019-04-16] MEDS: Bupivacaine 0.25% Pres-Free 30 ML VIAL (14:03)
--- NOTE | 2019-04-16 17:28 | ROE_ITS ---
DATE OF SURGERY: April 16, 2019 PREOPERATIVE DIAGNOSIS: Partial amputation of the left index finger and middle finger. POSTOPERATIVE DIAGNOSIS: Same. SURGERY: Irrigation and debridement of skin, muscle, and bone of index and middle fingers with lacer ation repairs. SURGEON: Medhat Sanon M.D. ANESTHESIA: Local. ESTIMATED BLOOD LOSS: Minimal. COMPLICATIONS: None. DISPOSITION: The patient was taken back to the same-day surgery area in A stable condition. INDICATION FOR PROCEDURE: Maria Dolores is a 78-year-old who was using a table saw yesterday. While in the process of using the table saw she got her left middle finger and index finger caught by the blad e. She had immediate bleeding and deformity and was seen in the Emergency Department. There was toro e notable bony involvement as well as involvement of the nail on both fingers. And this was loosely reapproximated and she was started on antibiotics. I was called in consultation, and I recommended o perative debridement and re-evaluation the following day. I met Maria Dolores again in the preoperative holding area. I reviewed her injury and the planned treatment. I discussed the options of either re vision amputation with a shorter finger versus debridement and closure, if possible. I reviewed the risks of the procedure to include bleeding, infection, pain, stiffness, persistent numbness or dysest hesias, nail deformity. Despite these risks, she elected to proceed. PROCEDURE DESCRIPTION: Maria Dolores was greeted in the preoperative holding area. Her identity was con firmed and the correct side was identified and marked. The consent was reviewed with the patient and signed. She was then taken back to the Operating Room. She was placed in the supine position. The left hand was placed on a hand table. Prophylactic antibiotics in the form of Cefazolin were given, given that this was an open injury. A time-out was performed for safe surgery. ChloraPrep was then used at the base of the index and middle finger MCP joints. Using 1% Lidocaine I then performed digital blocks of both the index and middle fingers. After this had a time to set up the dressings were removed for patient comfort. The hand was prepped with Betadine given an open in jury. It was draped in a standard fashion. After confirming that we had appropriate anesthesia on b oard for the case, I removed previous sutures which were placed. Both wounds were evaluated after th orough irrigation. Starting with the middle finger, there was notable loss of the nail. Fortunately , the tissue in this area did show that the sterile matrix was attached to the distal phalanx. A fra cture hematoma and blood clot and bony debris were removed. It was thoroughly irrigated. And loose pieces of bone were also removed. It seemed like there was simply just a chunk 2 to 3 mm worth, of t issue which had been removed by the saw. The laceration and this partial amputation involved all of the bone of the distal phalanx. Instead of trying to remove these pieces individually, and they were all embedded with soft tissue pulp. Therefore, I used a grasping-type stitch to group the skin flap s and edges together and tied it more proximally to bring over the top rather than pulling down on th e nail fold. I then loosely reapproximated one of the edge laceration lines. This did shorten the f noelle effectively by a couple of millimeters, but it also closed, ending the space. It did leav e the sterile matrix exposed, but there seemed to be nail still in the eponychial fold. I then moved onto the index finger. Again this laceration was a partial amputation which involved th e nail, sterile matrix, bone, and soft tissue of the distal aspect of the index finger. This was tho roughly irrigated and any clot and hematoma was removed. There was less bony debris, but there was a large portion of the ulnar aspect of the nail which was missing. Much like on the middle finger the re was a void of some tissue, including bone. This was irrigated. Once again I tried to group toget her some of the laceration elements to effectively shorten the finger slightly just to reapproximate the soft tissues. I did not try to have perfect reduction and perfect closure, allowing for some sec ondary intention. However, I wanted to make sure all bone was covered and there was no space. Using a series of 2 or 3sutures I was able to reapproximate these tissue planes. Two small flaps of tissue were on the distal aspect of the finger. I am concerned that one did not seem to be as perfus ed as the other. However, we'll have to evaluate it at a later date. After the closure of the wound s, 0.5% Bupivacaine was then used for an extended digital block for the middle finger and index finge r. The wounds were dressed with Xeroform, 4x4's. Tube gauze dressing was used for both fingers. At the end of the case all counts were correct. She was transferred back to the same-day surgery area in a stable condition.
== END 2019-04-16 15:00 | disposition home or self-care (01) ==
PROVIDERS: PCP Family Medicine; Visit Provider Student in an Organized Health Care Education/Training Program
PROC: (CPT 26951; principal; 2019-04-16 12:30)
DX: S68.623A 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, initial encounter (principal); S68.621A 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, initial encounter; W31.2XXA Contact with powered woodworking and forming machines, initial encounter; E11.9 Type 2 diabetes mellitus without complications; I10 Essential (primary) hypertension
CPT/HCPCS: 11044; 12041; 99214; NC; J0690

== ENCOUNTER → 2019-04-21 08:13 | Outpatient (BNVA) | payer MEDICARE, OTHER, SELFPAY | PROVIDERS: PCP Family Medicine; Referring Provider Family Medicine; Visit Provider Student in an Organized Health Care Education/Training Program | DX: S68.621A 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, initial encounter (principal); S68.623A 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, initial encounter; W31.2XXA Contact with powered woodworking and forming machines, initial encounter; E11.9 Type 2 diabetes mellitus without complications; I10 Essential (primary) hypertension ==

== ENCOUNTER → 2019-04-28 10:55 | Outpatient (BNVA) | payer MEDICARE, OTHER, SELFPAY | PROVIDERS: PCP Family Medicine; Referring Provider Family Medicine; Visit Provider Student in an Organized Health Care Education/Training Program | DX: S68.621A 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, initial encounter (principal); X58.XXXA Exposure to other specified factors, initial encounter; S68.623A 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, initial encounter; Z48.02 Encounter for removal of sutures; E11.9 Type 2 diabetes mellitus without complications; Z79.4 Long term (current) use of insulin; I10 Essential (primary) hypertension ==

== ENCOUNTER → 2019-05-12 10:54 | Outpatient (BNVA) | payer MEDICARE, OTHER, SELFPAY | PROVIDERS: PCP Family Medicine; Referring Provider Family Medicine; Visit Provider Student in an Organized Health Care Education/Training Program | DX: S68.621A 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, initial encounter (principal); S68.623A 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, initial encounter; X58.XXXA Exposure to other specified factors, initial encounter ==

== ENCOUNTER 2019-06-04 11:35 | Outpatient (CLI) | payer MEDICARE, OTHER, SELFPAY | END 2019-06-04 11:55 | PROVIDERS: PCP Family Medicine; Visit Provider Family Medicine | DX: E11.9 Type 2 diabetes mellitus without complications (principal) | CPT/HCPCS: 36415; 83036 ==

== ENCOUNTER → 2019-06-09 10:53 | Outpatient (BNVA) | payer MEDICARE, OTHER, SELFPAY | PROVIDERS: PCP Family Medicine; Referring Provider Family Medicine; Visit Provider Student in an Organized Health Care Education/Training Program | DX: S68.621D 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, subsequent encounter (principal); S68.623D Partial traumatic transphalangeal amputation of left middle finger, subsequent encounter; X58.XXXD Exposure to other specified factors, subsequent encounter ==

== ENCOUNTER 2019-06-13 14:59 | Observation (INO) | payer MEDICARE, OTHER, SELFPAY ==
[2019-06-13] VITALS (11 sets, daily range): BP systolic 142–200; BP diastolic 58–103; PULSE 56–73; RESP 14–24; TEMP 35.4–36.6; O2SAT 100
--- NOTE | 2019-06-13 15:07 | DI.CT_ITS ---
SYMPTOM/DIAGNOSIS: ALTERED, CONFUSION, R/O STROKE CT ANGIOGRAPHY CERVICAL/CRANIAL: 06/13 CT angiography was performed with multi slice acquisition and multi planar and 3D reconstruction. CT angiography of the cervical cranial region was performed with intravenous infusion of 85 cc Omnipaque 350. Images obtained through the lung apices are unremarkable. Tracheolaryngeal structures appear intact. No cervical mass or adenopathy seen. The paranasal sinuses and mastoid air cells appear fairly well aerated. The orbital and temporal bone structures appear intact. Please note that the noncontrast scan obtained as a preliminary examination to this scan shows no evidenc eof intracranial hemorrhage. There are bilateral basal ganglia calcifications. The aortic arch is not included on this scan. The visualized portions of the common carotid artery on the left are unremarkable to the level of the carotid bulb where there is mild wall calcification without significant luminal stenosis. On the right thee is unremarkable appearance of the common carotid artery to the level of the bulb where there is no significant stenosis. Both internal carotid arteries show normal luminal diameter to the level of the cavernous ICA bilaterally. There is moderate atheromatous plaque formation in the carotid ICA bilaterally, this appears to most likely be less than 50% luminal diameter stenosis bilaterally. There is right dominant vertebral circulation. Portions of left vertebral artery are poorly visualized proximally secondary to artifact. No vertebral aneurysm, stenosis or dissection. No basilar artery aneurysm, stenosis or dissection. Posterior cerebral, middle cerebral and anterior cerebral arteries bilaterally show normal caliber with no evidence of aneurysm, stenosis or dissection. CONCLUSION: Calcified plaque in carotid bifurcation/bulb region and cavernous ICA bilaterally, no evidence of stenosis of greater than 50% luminal diameter. No aneurysm or dissection identified.
--- NOTE | 2019-06-13 15:09 | DI.RAD_ITS ---
SYMPTOM/DIAGNOSIS: ALTERED PORTABLE AP CHEST: 06/13 The heart is not enlarged. Diaphragm is elevated on the right, unchanged from 12/2016. Lungs appear grossly clear and well expanded. CONCLUSION: No evidence of acute intrapulmonary process.
[2019-06-13 15:31] LABS: Abs Immature Grans 0.01 k/cumm (0.0-0.09); Absolute Eosinophil Count 0.05 k/cumm (0.0-0.7); Absolute Lymphocyte Count 1.07 k/cumm (1.2-3.4); Absolute Monocyte Count 0.41 k/cumm (0.11-0.7); Absolute Neutrophil Count 4.59 k/cumm (1.2-6.7); BE (Venous) 2.3 mmol/L (-3-3); Eosinophils % 0.8; HCO3 (Venous) 28 mmol/L (22-28); HCT 37.2 % (36.0-46.0); HGB 12.7 g/dL (12.0-15.5); Immature Grans % 0.2; Lymphocytes % 17.5; Mean Corp. HGB Concentration 34.1 g/dL (32.0-36.0); Mean Corpuscular Hemoglobin 29.7 pg (27.0-33.0); Mean Corpuscular Volume 86.9 fL (80-95); Mean Platelet Volume 10.9 fL (8.0-11.0); Monocytes % 6.7; Neutrophils % 74.8; O2 Sat (Venous) 74 % (70-80); Platelet Count 79 x1000/uL (130-400); RBC 4.28 m/cumm (4.00-5.20); RBC Distribution Width 13.4 % (11.7-14.6); TCO2 (Venous) 25 mmol/L (22-29); White Blood Cell Count 6.13 k/cumm (4.4-10.8); pCO2 (Venous) 48 mm/Hg (34-47); pH (Venous) 7.37 (7.32-7.43); pO2 (Venous) 41 mm/Hg (28-44)
[2019-06-13] MEDS: Dextrose 50%-Water 25 GM/50 ML SYR (15:34)
[2019-06-13 15:42] LABS: INR 1.1 (0.9-1.1); PTT Activated 24.4 sec (21.0-31.4); Prothrombin Time 10.8 sec (9.3-11.0)
[2019-06-13 15:44] LABS: RBC Morphology Normal
[2019-06-13 15:45] LABS: Ammonia < 10 umol/L (11-32); Diff Comment PLT Morph Reviewed
--- NOTE | 2019-06-13 15:46 | W.ED.GENAD ---
Discharge Plan Disposition Patient Disposition: [facility] INPATIENT Condition: Good Discharge Details Chief Complaint: AMS/LOC Clinical Impression: Altered mental status, Hypoglycemia Primary Care Provider: Houston Hilario ED Provider: Fredy Whittaker Home Meds and New Rx's Prescriptions: No Action Novolog U-100 Insulin aspart 100 unit/mL solution 20 - 40 unit subcut AC Qty: 13 RF: 3 Lantus U-100 Insulin 100 unit/mL solution 30 - 50 unit subcut BID Qty: 8 RF: 4 levothyroxine [Synthroid] 175 mcg tablet 175 mcg PO DAILY Qty: 90 RF: 4 lisinopril 5 mg tablet 5 mg PO DAILY Qty: 90 RF: 4 nitroglycerin [Nitrostat] 0.4 mg tablet, sublingual 0.4 mg Sublingual PRN Qty: 25 RF: 0 oxybutynin chloride [Ditropan XL] 10 mg tablet extended release 24hr 10 mg PO DAILY Qty: 90 RF: 4 metoprolol tartrate 50 mg tablet 50 mg PO BID Qty: 180 RF: 4 potassium gluconate 595 mg (99 mg) tablet 595 mg PO DAILY Qty: 90 RF: 3 simvastatin [Zocor] 20 mg tablet 20 mg PO HS Qty: 90 RF: 4 ASPIRIN 81 MG tablet 81 mg PO DAILY RF: 0 ascorbic acid (vitamin C) [Vitamin C] 500 MG tablet 500 mg PO BID RF: 0 loratadine [Claritin] 10 MG tablet 10 mg PO DAILY Qty: 90 RF: 4 Glucosamine Complex-MSM 1 EACH capsule 1 ea PO BID RF: 0 (DME) BD Insulin Syringe 1 EACH syringe 1 ea Sub-Q DIRECTED RF: 0 CALCIUM 600 + D TABLET 1 EACH tablet 1 ea PO BID RF: 0 SYSTANE 0.3-0.4% EYE DROPS 5 ML drops 1 drp OU DAILY RF: 0 loperamide [Anti-Diarrheal (loperamide)] 1 MG/5 ML liquid 4 mg PO PRN RF: 0 (DME) blood-glucose meter [Tab [employer] Ultra System Kit] 1 EACH kit 1 ea Miscellaneous QID Qty: 1 RF: 0 (DME) OneTouch Ultra Test 1 EACH strip 1 strip Sub-Q 5-6x/day Qty: 500 RF: 4 meclizine 25 MG tablet,chewable 25 mg PO TID PRNQty: 30 RF: 0 glipizide 5 MG tablet 5 mg PO BID Qty: 180 RF: 3 ropinirole 0.5 mg tablet 0.5 - 1.5 mg PO HS Qty: 270 RF: 3 Belbuca 150 mcg film 150 mcg BC Q12H Qty: 60 RF: 0 tramadol 50 mg tablet 50 - 100 mg PO QID PRN (Reason: back pain) Qty: 100 RF: 0 acetaminophen 500 mg tablet 1,000 mg PO Q8H PRN (Reason: pain) Qty: 60 RF: 3 ibuprofen 600 mg tablet 600 mg PO TID PRNQty: 30 RF: 3 Medical Decision Making This is a pleasant 78-year-old female with a past medical history of coronary artery disease, diabetes type 2, on insulin, metformin, and glipizide who presents today for altered mental status. She was found down in a field with unknown downtime, Accu-Chek was notably low at 53, she was given D10 and came up to the 90s but had no significant improvement of her mental status. Brought to the ER for further assessment. On initial assessment she showed no focal neurologic deficits, NIH score of 0, but mentation did appear to be slightly slowed. No focal neurologic deficits that could be appreciated on exam. Accu-Chek in the ER was in the mid 90s. Patient was continued on D10. Vital signs otherwise stable. Laboratory work-up demonstrated no significant abnormalities. White count normal, platelets chronically low at 79, venous pH normal, PCO2 level stable. Potassium slightly low at 3.2, creatinine stable. Troponin, ammonia, and EKG unremarkable. TSH normal, no clinical evidence of myxedema coma. CT angios head neck and CT Noncon of the head demonstrates atherosclerosis but no evidence of acute infarct or bleed per Dr. John. Chest x-ray was negative per radiology. the patient's blood sugar did go down low again into the 70s, she was given an amp of D50, fed food, and continued on D10. Patient's historical component does reveal that she did take her metformin glipizide and insulin(35 units) but did not have any other food this morning. I feel this is most likely the cause of her symptoms. On reassessment now at 5 PM the patient demonstrates a normal mental status, complete return to her baseline, no focal neurologic deficits. Because of the patient's age, risk factors, and notable delayed to get her blood sugar and mentation back to normal even in spite of negative imaging I do feel that she would benefit from overnight admission and observation. Recommend continued monitoring of her blood sugars and reassessment for neurologic changes in the morning. I did contact the hospitalist, and Dr. Webster agrees with the assessment and plan. I have extensively reviewed the treatment plan with the patient. I have addressed all patient concerns at this time. I have also discussed the plan with the admitting physician and they agree with the current assessment and plan and have agreed to assume responsibility for the patient. All parties demonstrate verbal understanding and agreement with our assessment and plan at this time. EKG 15: 08 Rate 53, NV 230, QTc 460, QRS 96, sinus bradycardia with notable first-degree AV block, no significant ST elevations or depressions, no T wave inversions, no Q waves HPI General Date/Time Provider Initiated Documentation: 06/13/19 15:07. HPI Narrative: This is a 78-year-old female with a past medical history of coronary artery disease, type 2 diabetes on glipizide, insulin sliding scale, and metformin. She presents today for evaluation of altered mental status/stroke alert. The patient was found in her field with an unknown downtime, she was confused, obtunded and unresponsive. Last known well was hours ago EMS was called, on their arrival Accu-Chek was noted to be 53. Fluids were given including D10, blood sugar came up to 93 however she still had notable persistent symptoms and altered mental status. She is brought to the ER for further assessment. Upon her arrival to the ER she is still notably confused, but there were no focal neurologic deficits. Mental status continued to improve. Blood sugar remained stable. Patient has no complaint of headache, neck pain, chest pain, falls or trauma. She is not on any significant blood thinners aside for aspirin. She does admit to taking her glipizide metformin and insulin today and she did not eat anything for breakfast except for a cup of coffee. She denies any other complaints at this time. No other modifying factors. Related Data Home Medications Medication Instructions Recorded Confirmed Aspirin 81 mg PO DAILY tab-cap 01/13/13 06/13/19 BD Insulin Syringe 01/13/13 06/09/19 Calcium 600 + D Tablet 1 ea PO BID 01/13/13 06/09/19 Glucosamine Complex-MSM 1 ea PO BID 01/13/13 06/09/19 Systane 0.3-0.4% Eye Drops 1 drp OU DAILY 01/13/13 06/09/19 ascorbic acid (vitamin C) [Vitamin 500 mg PO BID 01/13/13 06/09/19 C] loratadine [Claritin] 10 mg PO DAILY #90 tab-cap 01/13/13 06/13/19 loperamide [Anti-Diarrheal 4 mg PO PRN ml 05/31/14 06/13/19 (loperamide)] blood-glucose meter [Pliant TechnologyTouch #1 kit 06/23/14 06/09/19 Ultra System Kit] Tab [employer] Ultra Test #500 strip 01/24/17 06/09/19 meclizine 25 mg PO TID PRN #30 tab-cap 02/04/18 06/13/19 glipizide 5 mg PO BID #180 tab-cap 07/03/18 06/13/19 levothyroxine 175 mcg tablet 175 mcg PO DAILY #90 tab-cap 11/17/18 06/13/19 lisinopril 5 mg tablet 5 mg PO DAILY #90 tab-cap 11/17/18 06/13/19 metoprolol tartrate 50 mg tablet 50 mg PO BID #180 tab-cap 11/17/18 06/13/19 nitroglycerin 0.4 mg sublingual 0.4 mg SUBLINGUAL PRN #25 tab-cap 11/17/18 06/09/19 tablet oxybutynin chloride 10 mg 10 mg PO DAILY #90 tab-cap 11/17/18 06/13/19 tablet,extended release 24 hr potassium gluconate 595 mg (99 mg) 595 mg PO DAILY #90 tab 11/17/18 06/13/19 tablet simvastatin 20 mg tablet 20 mg PO HS #90 tab-cap 11/17/18 06/13/19 ropinirole 0.5 mg tablet 0.5 - 1.5 mg PO HS #270 tab-cap 12/01/18 06/13/19 insulin aspart U-100 100 unit/mL 20 - 40 unit SUBCUT AC #13 vial 03/05/19 06/13/19 subcutaneous solution insulin glargine 100 unit/mL 30 - 50 unit SUBCUT BID #8 vial 03/05/19 06/13/19 subcutaneous solution acetaminophen 1,000 mg PO Q8H PRN #60 tab 04/16/19 06/13/19 ibuprofen 600 mg PO TID PRN #30 tab 04/16/19 06/09/19 buprenorphine HCl 150 mcg buccal 150 mcg BC Q12H #60 each 05/05/19 06/13/19 film tramadol 50 mg tablet 50 - 100 mg PO QID PRN #100 tab-cap 05/26/19 06/13/19 Previous Rx's Medication Instructions Recorded glipizide 5 mg PO BID #180 tab-cap 07/03/18 levothyroxine 175 mcg tablet 175 mcg PO DAILY #90 tab-cap 11/17/18 lisinopril 5 mg tablet 5 mg PO DAILY #90 tab-cap 11/17/18 metoprolol tartrate 50 mg tablet 50 mg PO BID #180 tab-cap 11/17/18 nitroglycerin 0.4 mg sublingual 0.4 mg SUBLINGUAL PRN #25 tab-cap 11/17/18 tablet oxybutynin chloride 10 mg 10 mg PO DAILY #90 tab-cap 11/17/18 tablet,extended release 24 hr potassium gluconate 595 mg (99 mg) 595 mg PO DAILY #90 tab 11/17/18 tablet simvastatin 20 mg tablet 20 mg PO HS #90 tab-cap 11/17/18 ropinirole 0.5 mg tablet 0.5 - 1.5 mg PO HS #270 tab-cap 12/01/18 insulin aspart U-100 100 unit/mL 20 - 40 unit SUBCUT AC #13 vial 03/05/19 subcutaneous solution insulin glargine 100 unit/mL 30 - 50 unit SUBCUT BID #8 vial 03/05/19 subcutaneous solution acetaminophen 1,000 mg PO Q8H PRN #60 tab 04/16/19 ibuprofen 600 mg PO TID PRN #30 tab 04/16/19 buprenorphine HCl 150 mcg buccal 150 mcg BC Q12H #60 each 05/05/19 film tramadol 50 mg tablet 50 - 100 mg PO QID PRN #100 tab-cap 05/26/19 Allergies Allergy/AdvReac Type Severity Reaction Status Date / Time lansoprazole AdvReac Intermediate anxiety Verified 06/09/19 11:07 metoclopramide AdvReac Intermediate anxiety Verified 06/09/19 11:07 erythromycin base AdvReac Verified 06/09/19 11:07 ibuprofen AdvReac ABNORMAL Verified 06/09/19 11:07 KIDNEY FUNCTIONS metformin AdvReac DIARRHEA Verified 06/09/19 11:07 morphine patch AdvReac Intermediate Skin burn Uncoded 06/09/19 11:07 General Stated Complaint: AMS/LOC PAUL: 2 Review of Systems Review of Systems All systems reviewed & are unremarkable except as noted in HPI and below PFSH Medical History (Updated 06/04/19 @ 11:36 by Houston Hilario) Acute renal failure syndrome Atherosclerosis of coronary artery bladder cancer Diabetes mellitus, type 2 Edema extremities (Acute) Essential hypertension Hypercholesterolemia Myocardial infarction Surgical History (Updated 06/10/19 @ 11:24 by GUERRERO Sotomayor) Amputation Appendectomy Biopsy of breast CARPAL TUNNEL Cholecystectomy Colonoscopy - IV Sedation EGD - IV Sedation Extraction of cataract 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 3.ENT: Atraumatic external nose and ears. Moist MM. Neck: Symmetric, trachea midline, No thyromegaly. 4.CVS: +S1/S2, No murmurs or gallops. Peripheral pulses 2+ and equal in all extremities. Brisk capillary refill in all extremities. 5.RESP: Unlabored respiratory effort. Clear to auscultation bilaterally. No wheezes rales or rhonchi 6.GI: Soft, Nontender/Nondistended, No hepatosplenomegaly. No guarding or rebound. 7.MSK: Normocephalic/Atraumatic, Extremities w/o deformity or ttp No cyanosis or clubbing, Normal movement of all extremities 8.Skin: Warm, Dry. No rashes or lesions. 9.Neuro: wine steward/stewardess II-XII grossly intact. Sensation grossly intact, no focal neurologic deficits. All 6 cardinal planes of vision are fully intact. No evidence of rotatory or vertical nystagmus. The patient demonstrated a normal [id number], good dexterity. There was no evidence of dysdiadochokinesia. Patient was able to ambulate without difficulty. There was no wide-based gait. Romberg, and [id number] are both normal on testing. Sensation was intact bilaterally as well as muscle strength bilaterally for all extremities. Patient was able to verbalize butter cup with no slurring, or miss pronunciation. 10.Psych: (AAO) x3. Mentation appears to be slightly slow Course Vital Signs Temperature 36.2 C L 06/13/19 15:01 Pulse 56 L 06/13/19 15:01 Respiratory Rate 16 06/13/19 15:01 Blood Pressure 177/68 H 06/13/19 15:01 Pulse Oximetry 100 06/13/19 15:01 Temperature 36.2 C L 06/13/19 15:01 Temperature Source Temporal Artery Scan 06/13/19 15:01 Pulse 56 L 06/13/19 15:01 Respiratory Rate 16 06/13/19 15:01 Blood Pressure 177/68 H 06/13/19 15:01 Blood Pressure Position Supine 06/13/19 15:01 Pulse Oximetry 100 06/13/19 15:01 Oxygen Delivery Method Room Air 06/13/19 15:01 Oxygen Flow Rate 0 06/13/19 15:01 Lab/Test Results Lab/Test Results: Laboratory Tests Range/Units 06/13/19 06/13/19 06/13/19 15:23 15:23 15:23 WBC (4.4-10.8) k/cumm 6.13 RBC (4.00-5.20) m/cumm 4.28 Hgb (12.0-15.5) g/dL 12.7 Hct (36.0-46.0) % 37.2 MCV (80-95) fL 86.9 MCH (27.0-33.0) pg 29.7 MCHC (32.0-36.0) g/dL 34.1 RDW (11.7-14.6) % 13.4 Plt Count (130-400) x1000/uL 79 L MPV (8.0-11.0) fL 10.9 Immature Gran % 0.2 Neutrophils % 74.8 Lymphocytes % 17.5 Monocytes % 6.7 Eosinophils % 0.8 Basophils % 0.0 Absolute Neutrophils (1.2-6.7) k/cumm 4.59 Absolute Lymphocytes (1.2-3.4) k/cumm 1.07 L Absolute Monocytes (0.11-0.7) k/cumm 0.41 Absolute Eosinophils (0.0-0.7) k/cumm 0.05 Absolute Basophils (0.0-0.2) k/cumm 0.00 Differential Comment Plt morph reviewed RBC Morphology Normal PT (9.3-11.0) sec 10.8 INR (0.9-1.1) 1.1 APTT (21.0-31.4) sec 24.4 VBG pH (7.32-7.43) VBG pCO2 (34-47) mm/Hg VBG pO2 (28-44) mm/Hg VBG HCO3 (22-28) mmol/L VBG Total CO2 (22-29) mmol/L VBG O2 Saturation (70-80) % VBG Base Excess (-3-3) mmol/L Ammonia (11-32) umol/L < 10 L Range/Units 06/13/19 15:23 WBC (4.4-10.8) k/cumm RBC (4.00-5.20) m/cumm Hgb (12.0-15.5) g/dL Hct (36.0-46.0) % MCV (80-95) fL MCH (27.0-33.0) pg MCHC (32.0-36.0) g/dL RDW (11.7-14.6) % Plt Count (130-400) x1000/uL MPV (8.0-11.0) fL Immature Gran % Neutrophils % Lymphocytes % Monocytes % Eosinophils % Basophils % Absolute Neutrophils (1.2-6.7) k/cumm Absolute Lymphocytes (1.2-3.4) k/cumm Absolute Monocytes (0.11-0.7) k/cumm Absolute Eosinophils (0.0-0.7) k/cumm Absolute Basophils (0.0-0.2) k/cumm Differential Comment RBC Morphology PT (9.3-11.0) sec INR (0.9-1.1) APTT (21.0-31.4) sec VBG pH (7.32-7.43) 7.37 VBG pCO2 (34-47) mm/Hg 48 H VBG pO2 (28-44) mm/Hg 41 VBG HCO3 (22-28) mmol/L 28 VBG Total CO2 (22-29) mmol/L 25 VBG O2 Saturation (70-80) % 74 VBG Base Excess (-3-3) mmol/L 2.3 Ammonia (11-32) umol/L
--- NOTE | 2019-06-13 15:58 | NUR.NOTE ---
Nursing Note: BGL 71 upon assessment. MD Whittaker made aware. Orders received to administer 25G of D50 IVP. MD Whittaker also ordered to continue Dextrose 10% that was initiated by EMS. Verbal orders received to feed patient to maintain adequate BGL level.
[2019-06-13 16:03] LABS: ALT 21 U/L (12-78); AST 16 U/L (15-37); Albumin 3.4 g/dL (3.4-5.0); Alkaline Phosphatase 86 U/L (46-116); Anion Gap 8.2 mmol/L (3-11); BUN 25 mg/dL (7-18); Bilirubin, Total 0.5 mg/dL (0.2-1.0); CO2 27.8 mmol/L (21.0-32.0); CREATININE 1.03 mg/dL (0.55-1.02); Calcium 9.5 mg/dL (8.5-10.1); Chloride 106 mmol/L (98-107); Estimated GFR 51.69 (mL/min/1.73m2); Glucose 74 mg/dL (70-100); Potassium 3.2 mmol/L (3.5-5.1); Sodium 142 mmol/L (136-145); TSH (W/Ref FT4) 0.63 uIU/mL (0.36-3.74); Total Protein 7.8 g/dL (6.4-8.2)
[2019-06-13 16:06] LABS: ETHANOL BLOOD < 3.0 mg/dL (<3); Troponin I < 0.05 ng/mL (0.00-0.06)
--- NOTE | 2019-06-13 17:46 | HPE_ITS ---
Date of service: 06/13/19 Time of Service: 17:46 Assessment and Plan (1) Hypoglycemia: Start date: 06/13/19 Current visit: Yes Status: Acute This is a 78-year-old lady who was found with altered mental status and question of stroke syndrome in the field behind her house on the day of admission to the ED. She was hypoglycemic and had taken her usual long-acting insulin and short-acting insulin pre-meal glucometer guided dose but did not eat her breakfast. She also is on an oral hypoglycemic and not on metformin. As her hypoglycemia was treated her mentation cleared now she is at her baseline and keeping her glucometer measurements above 150 after eating and with her IV dextrose. She is on IV hydration with potassium supplementation because of mild hypokalemia and dehydration. She will be observed overnight with glucometer measurements every 2 hour going every 4 hours if she is stable but no more insulin coverage during the night. If needed we will give her more IV dextrose. In the morning we should reevaluate her insulin treatment to avoid hypo glycemia. Her oral hypoglycemic might want to be discontinued. Also her sliding scale for insulin coverage with meals should be reevaluated since this is quite high. (2) Altered mental status: Start date: 06/13/19 Current visit: Yes Status: Acute Initially there was some concern for stroke syndrome but this appears to be clearly secondary to her hypoglycemia with an extended episode causing her altered mentation to clear slowly. She has no focal neurological findings or complaints and will be observed overnight. Qualifiers: Altered mental status type: stupor Qualified Code(s): R40.1 - Stupor (3) Type II diabetes mellitus with complication, uncontrolled: Current visit: No Status: Chronic Patient sounds like she had uncontrolled diabetes in the past but recently has been more controlled. Her treatment regimen may want to be adjusted with less NovoLog with her meals which now is on the sliding scale with a pre-meal glucometer measurements. It is possible she could try to take insulin according to what she eats with carb counting. Also her oral hypoglycemic may want to be discontinued. Her Lantus is been adjusted to her fasting glucometer which is appropriate. History of Present Illness Chief Complaint: Syncope with altered mental status at home. Narrative: This is a 78-year-old lady who has a past history of diabetes on long-acting and short acting insulin with a sliding scale for short acting insulin gauged by glucometer prior to meal in the morning and evening. She also is on glyburide. She took her usual dose of Lantus in the morning and more than 30 units of NovoLog per her sliding scale but did not eat breakfast. She went outside and was with her doing gardening. She was found unconscious with altered mental status in her backyard which the admitting nurse said was a field with her demented with call for help. She was down for an unknown amount of time and stroke protocol was initiated. She was found to have an Accu-Chek that was in the 50s while she was evaluated in the field and was given D10 with glucometer count of the 90s with no change in mental status. In the ED she had an NIH score of 0 with no focal neurological findings and her mentation slowly improved as she was given D10 and amps of D50 and food with her glucometer, not in the 100s. She continued to drop in the ED requiring D50 but after eating she became more stable and was clearing her mentation to her baseline. Which was verified up to MedSurg the admitting nurse stated that she still slightly confused about her history and meds. At the time I saw the patient she was mentating well and had no problems with short-term or long-term memory. 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 She had no reason that she was less hungry today and states that her last hemoglobin A1c was in the range of 7. She does have a history of cardiac disease but had no complaints of palpitations, chest pain and has little memory of her syncopal episode. She has no GI or complaints other than her anorexia this morning. She has had no fever or recent infection. Patient states that she was at her baseline the day prior to this event. Because she is on Synthroid there is concerned about the extent, and her TSH was low normal. Her imaging was unrevealing as well with chest x-ray and CT of the head and follow-up for his pending. In the ED she did approach her baseline mentation prior to transfer up to the floor for observation overnight. Will be checked her glucometer the few hours until stable then every 4 hours and not to give any insulin tonight with meds to be restarted in the morning once we can review her accurate medication list and treatment. The oral hypoglycemic may want to be reevaluated with her high dose short acting insulin being given before meals. The patient is a full code. Review of Systems Review of Systems 13 point review of systems as per HPI, otherwise unrevealing or stable with patient able to give accurate history on my exam. 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 Brother Essential hypertension Heart disease Hyperlipidemia Myocardial infarction Grandfather No problems noted. Grandfather No problems noted. Grandmother Diabetes Essential hypertension Hyperlipidemia Grandmother No problems noted. Son No problems noted. Daughter No problems noted. Social History Smoking/Tobacco Use Status: Former Tobacco Use Quit Date: 12/07/85 Alcohol Intake: current Alcohol Intake frequency: holidays/special occasions only Drug use: Never Substance use type: does not use Do you feel safe at home: Yes Do you feel safe in your relationship?: Yes Meds Home Medications Medication Instructions Recorded Confirmed Type Aspirin 81 mg PO DAILY tab-cap 01/13/13 06/13/19 History BD Insulin Syringe 01/13/13 06/09/19 History Calcium 600 + D Tablet 1 ea PO BID 01/13/13 06/09/19 History Glucosamine Complex-MSM 1 ea PO BID 01/13/13 06/09/19 History Systane 0.3-0.4% Eye Drops 1 drp OU DAILY 01/13/13 06/09/19 History ascorbic acid (vitamin C) [Vitamin 500 mg PO BID 01/13/13 06/09/19 History C] loratadine [Claritin] 10 mg PO DAILY #90 tab-cap 01/13/13 06/13/19 History loperamide [Anti-Diarrheal 4 mg PO PRN ml 05/31/14 06/13/19 History (loperamide)] blood-glucose meter [OneTouch #1 kit 06/23/14 06/09/19 History Ultra System Kit] OneTouch Ultra Test #500 strip 01/24/17 06/09/19 History meclizine 25 mg PO TID PRN #30 tab-cap 02/04/18 06/13/19 History glipizide 5 mg PO BID #180 tab-cap 07/03/18 06/13/19 Rx levothyroxine 175 mcg tablet 175 mcg PO DAILY #90 tab-cap 11/17/18 06/13/19 Rx lisinopril 5 mg tablet 5 mg PO DAILY #90 tab-cap 11/17/18 06/13/19 Rx metoprolol tartrate 50 mg tablet 50 mg PO BID #180 tab-cap 11/17/18 06/13/19 Rx nitroglycerin 0.4 mg sublingual 0.4 mg SUBLINGUAL PRN #25 tab-cap 11/17/18 06/09/19 Rx tablet oxybutynin chloride 10 mg 10 mg PO DAILY #90 tab-cap 11/17/18 06/13/19 Rx tablet,extended release 24 hr potassium gluconate 595 mg (99 mg) 595 mg PO DAILY #90 tab 11/17/18 06/13/19 Rx tablet simvastatin 20 mg tablet 20 mg PO HS #90 tab-cap 11/17/18 06/13/19 Rx ropinirole 0.5 mg tablet 0.5 - 1.5 mg PO HS #270 tab-cap 12/01/18 06/13/19 Rx insulin aspart U-100 100 unit/mL 20 - 40 unit SUBCUT AC #13 vial 03/05/19 06/13/19 Rx subcutaneous solution insulin glargine 100 unit/mL 30 - 50 unit SUBCUT BID #8 vial 03/05/19 06/13/19 Rx subcutaneous solution acetaminophen 1,000 mg PO Q8H PRN #60 tab 04/16/19 06/13/19 Rx ibuprofen 600 mg PO TID PRN #30 tab 04/16/19 06/09/19 Rx buprenorphine HCl 150 mcg buccal 150 mcg BC Q12H #60 each 05/05/19 06/13/19 Rx film tramadol 50 mg tablet 50 - 100 mg PO QID PRN #100 tab-cap 05/26/19 06/13/19 Rx Allergies Allergy/AdvReac Type Severity Reaction Status Date / Time lansoprazole AdvReac Intermediate anxiety Verified 06/09/19 11:07 metoclopramide AdvReac Intermediate anxiety Verified 06/09/19 11:07 erythromycin base AdvReac Verified 06/09/19 11:07 ibuprofen AdvReac ABNORMAL Verified 06/09/19 11:07 KIDNEY FUNCTIONS metformin AdvReac DIARRHEA Verified 06/09/19 11:07 morphine patch AdvReac Intermediate Skin burn Uncoded 06/09/19 11:07 Exam Narrative Exam Narrative: General: Patient is moderately obese and muscular appearing her age in no acute distress and alert and oriented to person place and time to time of my exam. She had reached her baseline in the ED but was still slightly confused when she came to the floor for the admitting nurse. HEENT: Normocephalic with thinning angeles hair, eyes with pupil equal reactive light symmetrically and extraocular movement intact with sclera anicteric. External ears and nose normal. Oropharynx with missing teeth and remaining teeth carious with discoloration. No gingival erythema. Neck: Supple without JVD. Lungs: Clear to auscultation. Heart: Regular rate and rhythm with pansystolic murmur left sternal border and apex 3/6 intensity. No gallops or rubs. Breast: Exam deferred. Abdomen: Obese contour, soft to palpation with no focalizing tenderness and no hepatospleno megaly. Bowel sounds positive all quadrants. Genitalia/rectal: Exam deferred. Extremities: Osteoarthritic changes with darkly tanned extremities with nonpitting edema over lower extremities. Peripheral pulses are decreased but intact and good capillary refill. Skin and hair over lower extremities with scars over right knee. No clubbing or cyanosis. Neuro: Cranial nerves II through XII grossly intact, no focalizing motor deficits and no Babinski's. Skin: Actinic changes with darkly tanned skin over extremities and no rashes. Warm and dry. Results Labs : 06/13/19 15:23 06/13/19 15:23 Laboratory Results - last 24 hr 06/13/19 06/13/19 06/13/19 15:23 15:23 15:23 WBC 6.13 RBC 4.28 Hgb 12.7 Hct 37.2 MCV 86.9 MCH 29.7 MCHC 34.1 RDW 13.4 Plt Count 79 L MPV 10.9 Immature Gran % 0.2 Neutrophils % 74.8 Lymphocytes % 17.5 Monocytes % 6.7 Eosinophils % 0.8 Basophils % 0.0 Absolute Neutrophils 4.59 Absolute Lymphocytes 1.07 L Absolute Monocytes 0.41 Absolute Eosinophils 0.05 Absolute Basophils 0.00 Differential Comment Plt morph reviewed RBC Morphology Normal PT INR APTT VBG pH VBG pCO2 VBG pO2 VBG HCO3 VBG Total CO2 VBG O2 Saturation VBG Base Excess Sodium 142 Potassium 3.2 L Chloride 106 Carbon Dioxide 27.8 Anion Gap 8.2 BUN 25 H Creatinine 1.03 H Estimated GFR/1.73 m2 51.69 Glucose 74 Calcium 9.5 Total Bilirubin 0.5 AST 16 ALT 21 Alkaline Phosphatase 86 Ammonia < 10 L Troponin I < 0.05 Total Protein 7.8 Albumin 3.4 TSH 0.63 Ethyl Alcohol < 3.0 06/13/19 06/13/19 15:23 15:23 WBC RBC Hgb Hct MCV MCH MCHC RDW Plt Count MPV Immature Gran % Neutrophils % Lymphocytes % Monocytes % Eosinophils % Basophils % Absolute Neutrophils Absolute Lymphocytes Absolute Monocytes Absolute Eosinophils Absolute Basophils Differential Comment RBC Morphology PT 10.8 INR 1.1 APTT 24.4 VBG pH 7.37 VBG pCO2 48 H VBG pO2 41 VBG HCO3 28 VBG Total CO2 25 VBG O2 Saturation 74 VBG Base Excess 2.3 Sodium Potassium Chloride Carbon Dioxide Anion Gap BUN Creatinine Estimated GFR/1.73 m2 Glucose Calcium Total Bilirubin AST ALT Alkaline Phosphatase Ammonia Troponin I Total Protein Albumin TSH Ethyl Alcohol Last Vital Signs Temp 36.2 C L 06/13/19 15:01 Pulse 66 06/13/19 17:16 Resp 19 06/13/19 17:10 BP 158/65 H 06/13/19 17:16 Pulse Ox 100 06/13/19 15:01
[2019-06-13 17:47] LABS: Bilirubin Negative (Negative); Blood Negative (Negative); Clarity Clear (Clear); Glucose 100 mg/dL (Negative); Ketones Negative (Negative); Leukocyte Esterase Negative (Negative); Nitrite Negative (Negative); Specific Gravity 1.015 (1.005-1.025); Urobilinogen 0.2 EU/dL (Up TO 0.2); pH 6.5 (5-8)
[2019-06-13 17:53] LABS: Bacteria Rare HPF (Negative); Crystals Negative HPF (Negative); Epithelial Cells Negative HPF (Negative); Other Cells Negative (Negative); RBC Negative (0-2); WBC Negative HPF (0-5)
[2019-06-13 17:54] LABS: C & S Indicated? No; Casts Negative LPF (Negative); Mucus Trace (Negative)
[2019-06-13] MEDS: POTASSIUM CHLORIDE/0.9% NACL 1,000 ML 80 MEQ IV (18:53)
[2019-06-13] MEDS: traMADol 50 MG TAB PO (18:54)
[2019-06-13] MEDS: Normal Saline Flush 10 ML SYR IVP (18:55)
--- NOTE | 2019-06-13 19:30 | CMPROGNOTE_ITS ---
Care Management Progress Note CM consult requested as Maria Dolores was reporting her was home and confused and she was worried he wouldn't be safe for the evening. Maria Dolores reported Sanchez becomes more confused at night. CM met with Maria Dolores and reviewed the chart confirming that her Sanchez does have slowly progressing dementia. CM spoke with Sanchez over the phone who was confused and unable to answer questions appropriately. He shared concerns for his safety I'm O.K. now but it is going to get dark. CM requested Lorie Bahena; FELICC to speak with Sanchez as well; she reported feeling he was confused as well. Lorie consulted RN Supervisor Safety Deposit [place] [facility]. Lorie also spoke with a CARD HAND who reported Sanchez was appropriate during Maria Dolores's time in the ER. CM paged Residential Sales Executive adjunct instructor in economics; Alejandrina Elaine who seconded Naga's sentiment and encouraged this creative services writer to request the Police seek contact information for family members within the home setting during the Wellcheck. CM called [phone] and explained the request for the well check. The dispatcher reported that it was likely the Police would just call EMS to have Sanchez evaluated at the ER. CM spoke with Dr. Whittaker who reported Sanchez had refused offers to stay, and then drove himself home. CM notified Dr. Whittaker of the dispatcher report. If Sanchez is deemed safe upon arrival to [facility], Naga; RN Supervisor Safety Deposit reportedly stated a cot could be placed in Maria Dolores's room to ensure his safety overnight.
[2019-06-13] MEDS: Calcium 600mg/Vit D 200U TAB 1 TAB PO (20:05)
[2019-06-13] MEDS: Acetaminophen 500 MG TAB 1000 MG PO (20:23)
[2019-06-13 20:50] LABS: Magnesium 1.6 mg/dL (1.8-2.4)
[2019-06-13 20:54] LABS: Troponin I < 0.05 ng/mL (0.00-0.06)
[2019-06-13] MEDS: rOPINIRole 0.5 MG TAB 1.5 MG PO (22:02)
[2019-06-13] MEDS: Simvastatin 20 MG TAB PO (22:03)
[2019-06-14 00:35] LABS: Troponin I < 0.05 ng/mL (0.00-0.06)
[2019-06-14 02:23] VITALS: BP 129/63; PULSE 62; RESP 16; TEMP 36.6; O2SAT 100
[2019-06-14 06:25] VITALS: BP 125/57; PULSE 61; RESP 16; TEMP 36.5; O2SAT 98
[2019-06-14] MEDS: Levothyroxine 175 MCG TAB PO (06:34)
[2019-06-14 07:42] VITALS: BP 137/63; PULSE 71; RESP 18; TEMP 36.6; O2SAT 99
[2019-06-14 07:42] LABS: HCT 32.3 % (36.0-46.0); HGB 10.7 g/dL (12.0-15.5); Mean Corp. HGB Concentration 33.1 g/dL (32.0-36.0); Mean Corpuscular Hemoglobin 29.2 pg (27.0-33.0); Mean Platelet Volume 10.9 fL (8.0-11.0); RBC 3.67 m/cumm (4.00-5.20); RBC Distribution Width 13.6 % (11.7-14.6); White Blood Cell Count 5.55 k/cumm (4.4-10.8)
[2019-06-14] MEDS: Oxybutynin-CR 5 MG TABCR 10 MG PO (07:49)
[2019-06-14] MEDS: Calcium 600mg/Vit D 200U TAB 1 TAB PO (07:49)
[2019-06-14] MEDS: POTASSIUM CHLORIDE/0.9% NACL 1,000 ML 80 MEQ IV (07:49)
[2019-06-14] MEDS: Aspirin 81 MG CHEW CH (07:50)
[2019-06-14] MEDS: Lisinopril 5 MG TAB PO (07:50)
[2019-06-14] MEDS: Loratidine 10 MG TAB PO (07:50)
[2019-06-14] MEDS: Refresh PLUS Eye Drops 0.4ml OP (07:51)
[2019-06-14] MEDS: Metoprolol 50 MG TAB PO (07:51)
[2019-06-14] MEDS: Normal Saline Flush 10 ML SYR IVP (07:52)
[2019-06-14 07:57] LABS: ALT 17 U/L (12-78); AST 15 U/L (15-37); Albumin 2.8 g/dL (3.4-5.0); Alkaline Phosphatase 70 U/L (46-116); Anion Gap 8.7 mmol/L (3-11); BUN 19 mg/dL (7-18); Bilirubin, Total 0.4 mg/dL (0.2-1.0); CO2 26.3 mmol/L (21.0-32.0); CREATININE 0.98 mg/dL (0.55-1.02); Calcium 8.9 mg/dL (8.5-10.1); Chloride 108 mmol/L (98-107); Estimated GFR 54.75 (mL/min/1.73m2); Glucose 109 mg/dL (70-100); Sodium 143 mmol/L (136-145); Total Protein 6.3 g/dL (6.4-8.2)
[2019-06-14 08:56] LABS: Platelet Count 78 x1000/uL (130-400)
[2019-06-14 11:33] LABS: Magnesium 1.7 mg/dL (1.8-2.4)
[2019-06-14] MEDS: glipiZIDE 5 MG TAB PO (11:51)
--- NOTE | 2019-06-14 12:07 | W.PM.DS.N ---
Date of service: 06/14/19 DS: Diagnosis Discharge Diagnosis (1) Hypoglycemia: Status: Acute (2) Altered mental status: Status: Acute (3) Type II diabetes mellitus with complication, uncontrolled: Status: Chronic Discharge Plan Disposition Patient Disposition: HOME Condition: Good Discharge Details Chief Complaint: AMS/LOC Clinical Impression: Altered mental status, Hypoglycemia Reason For Visit: HYPOGLYCEMIA, ALTERED MENTAL STATE Admit Date/Time: 06/13/19 16:57 Admit Provider: Hung Webster Attending Provider: Hung Webster Primary Care Provider: Houston Hilario ED Provider: Fredy Whittaker Hospital Course Hospital Course: 78-year-old female with a past medical history of coronary artery disease, diabetes type 2, on insulin long acting twice daily and short acting with meals and glipizide 5 mg BID who presented to the ED after she was found down in a field with unknown downtime, Accu-Chek was notably low at 53, she was given D10 and came up to the 90s but had no significant improvement of her mental status. She was then transported to the ER for further assessment. On initial assessment she showed no focal neurologic deficits, NIH score of 0, but mentation did appear to be slightly slowed. Accu-Chek in the ER was in the mid 90s. Patient was continued on D10. Vital signs otherwise stable. Laboratory work-up demonstrated no significant abnormalities. Radiologic studies including head neck cta and cxr all unremarkable. She was referred to observation for close glucose monitoring. After her blood sugars stabilized her D10 was discontinued. her blood sugars remained normal to elevated with no further hypoglycemia. She was at her baseline in the am and eating breakfast. She is safe for discharge to home. there will be no changes in her current diabetes management as her A1C on jun 04 was 8.0 and she states she did not eat breakfast yesterday but took her oral and insulin medications. She will be instructed to monitor her blood sugars ac/hs at home and will bring log to her follow up appointment. Home Meds and New Rx's Prescriptions: Continued Novolog U-100 Insulin aspart 100 unit/mL solution 20 - 40 unit subcut AC Qty: 13 RF: 3 Lantus U-100 Insulin 100 unit/mL solution 30 - 50 unit subcut BID Qty: 8 RF: 4 levothyroxine [Synthroid] 175 mcg tablet 175 mcg PO DAILY Qty: 90 RF: 4 lisinopril 5 mg tablet 5 mg PO DAILY Qty: 90 RF: 4 nitroglycerin [Nitrostat] 0.4 mg tablet, sublingual 0.4 mg Sublingual PRN Qty: 25 RF: 0 oxybutynin chloride [Ditropan XL] 10 mg tablet extended release 24hr 10 mg PO DAILY Qty: 90 RF: 4 metoprolol tartrate 50 mg tablet 50 mg PO BID Qty: 180 RF: 4 potassium gluconate 595 mg (99 mg) tablet 595 mg PO DAILY Qty: 90 RF: 3 simvastatin [Zocor] 20 mg tablet 20 mg PO HS Qty: 90 RF: 4 ASPIRIN 81 MG tablet 81 mg PO DAILY RF: 0 ascorbic acid (vitamin C) [Vitamin C] 500 MG tablet 500 mg PO BID RF: 0 loratadine [Claritin] 10 MG tablet 10 mg PO DAILY Qty: 90 RF: 4 Glucosamine Complex-MSM 1 EACH capsule 1 ea PO BID RF: 0 (DME) BD Insulin Syringe 1 EACH syringe 1 ea Sub-Q DIRECTED RF: 0 CALCIUM 600 + D TABLET 1 EACH tablet 1 ea PO BID RF: 0 SYSTANE 0.3-0.4% EYE DROPS 5 ML drops 1 drp OU DAILY RF: 0 loperamide [Anti-Diarrheal (loperamide)] 1 MG/5 ML liquid 4 mg PO PRN RF: 0 (DME) blood-glucose meter [EndoStim Ultra System Kit] 1 EACH kit 1 ea Miscellaneous QID Qty: 1 RF: 0 (DME) [employer] Ultra Test 1 EACH strip 1 strip Sub-Q 5-6x/day Qty: 500 RF: 4 meclizine 25 MG tablet,chewable 25 mg PO TID PRNQty: 30 RF: 0 glipizide 5 MG tablet 5 mg PO BID Qty: 180 RF: 3 ropinirole 0.5 mg tablet 0.5 - 1.5 mg PO HS Qty: 270 RF: 3 [place] 150 mcg film 150 mcg BC Q12H Qty: 60 RF: 0 tramadol 50 mg tablet 50 - 100 mg PO QID PRN (Reason: back pain) Qty: 100 RF: 0 acetaminophen 500 mg tablet 1,000 mg PO Q8H PRN (Reason: pain) Qty: 60 RF: 3 ibuprofen 600 mg tablet 600 mg PO TID PRNQty: 30 RF: 3 Discharge Instructions Instructions: Diabetic Hypoglycemia (DC) Additional Instructions: continue usual medications as directed. Please monitor your blood sugars before meals and at bedtime and bring log to your follow up appointment. return here sooner for new or worsening problems. please eat 3 meals with snacks daily as discussed with diabetes management Stand Alone Forms: Nursing Discharge Form Referrals: Houston Hilario [Primary Care Provider] - 06/25/19 8:20 am Activity:: Activity as Tolerated Equipment/Supplies:: No Equipment Needed Diet:: Carb Counting Discharge Orders Discharge Orders: Discharge Order (Routine); Ordered 06/14/19 Ordered By: Rosa Ma Discharge Data Discharge Date/Time-TO BE ENTERED AT DEPARTURE: 06/14/19 13:35 Exam Const General: cooperative, healthy appearing (elderly female of stated age), comfortable and no acute distress Nutritional Appearance: overweight Orientation: alert, awake and oriented x3 HENMT Head: normal to inspection, normocephalic and atraumatic Mouth: oral mucosae normal Resp Effort & Inspection: normal respiratory effort Auscultation: clear to auscultation bilaterally Cardio Rate: regular rate Rhythm: regular rhythm GI Inspection: normal to inspection Palpation: soft Auscultation: normal bowel sounds Skin General skin exam: ecchymosis (left lateral thigh) Rashes: no rashes Trauma: abrasion (left lateral thigh) Neuro General: alert, awake and oriented x3 Cranial Nerves: CN's II-XI intact bilaterally Cognition: normal cognition Speech: speech normal Motor: muscle tone normal throughout Extrem General: normal to inspection, full ROM and no pedal edema DS: Data Vitals/I&O Vitals and I&O: Vital Signs Temperature 36.6 C 06/14/19 07:42 Temperature Source Tympanic 06/14/19 07:42 Pulse 71 06/14/19 07:42 Pulse Rhythm Regular 06/14/19 07:35 Pulse 66 06/13/19 17:01 Respiratory Rate 18 06/14/19 07:42 Respiratory Effort Non-Labored 06/14/19 07:35 Respiratory Depth Normal 06/14/19 07:35 Respiratory Pattern Normal 06/14/19 07:35 Blood Pressure 137/63 06/14/19 07:42 Blood Pressure Mean 90 06/13/19 17:16 Blood Pressure Position Supine 06/13/19 15:01 Pulse Oximetry 99 06/14/19 07:42 Oxygen Delivery Method Room Air 06/14/19 07:42 Oxygen Flow Rate 0 06/14/19 07:42 Pain Level 0 06/14/19 07:42 Intake & Output 06/13/19 06/14/19 06/14/19 23:59 11:59 23:59 Intake Total 1010 / 1010 Output Total 450 / 450 800 / 800 Balance -450 / -450 210 / 210 Weight 94.8 kg 90.6 kg Intake: IV 1010 / 1010 Output: Urine 450 / 450 800 / 800 Other: Urine Color Yellow Pale Yellow Straw Urine Appearance Clear Clear Urine Odor Normal Normal Comment Patient missed hat Voiding Methods Toilet Toilet # Voids 1 Labs on day of discharge: Labs from last 24 hours 06/14/19 06/14/19 06/13/19 07:30 07:30 20:22 WBC 5.55 RBC 3.67 L Hgb 10.7 L Hct 32.3 L MCV 88.0 MCH 29.2 MCHC 33.1 RDW 13.6 Plt Count 78 L MPV 10.9 Immature Gran % Neutrophils % Lymphocytes % Monocytes % Eosinophils % Basophils % Absolute Neutrophils Absolute Lymphocytes Absolute Monocytes Absolute Eosinophils Absolute Basophils Differential Comment RBC Morphology PT INR APTT VBG pH VBG pCO2 VBG pO2 VBG HCO3 VBG Total CO2 VBG O2 Saturation VBG Base Excess Sodium 143 Potassium 4.0 D Chloride 108 H Carbon Dioxide 26.3 Anion Gap 8.7 BUN 19 H D Creatinine 0.98 Estimated GFR/1.73 m2 54.75 Glucose 109 H Calcium 8.9 Magnesium 1.7 L 1.6 L Total Bilirubin 0.4 AST 15 ALT 17 Alkaline Phosphatase 70 Ammonia Troponin I < 0.05 Total Protein 6.3 L Albumin 2.8 L TSH Urine Color Urine Clarity Urine pH Ur Specific [place] Urine Protein Urine Ketones Urine Blood Urine Nitrite Urine Bilirubin Urine Urobilinogen Ur Leukocyte Esterase Urine RBC Urine WBC Ur Epithelial Cells Urine Crystals Urine Bacteria Urine Casts Urine Mucus Urine Other Ur Culture Indicated? Urine Glucose Ethyl Alcohol 06/13/19 06/13/19 06/13/19 17:40 15:23 15:23 WBC RBC Hgb Hct MCV MCH MCHC RDW Plt Count MPV Immature Gran % Neutrophils % Lymphocytes % Monocytes % Eosinophils % Basophils % Absolute Neutrophils Absolute Lymphocytes Absolute Monocytes Absolute Eosinophils Absolute Basophils Differential Comment RBC Morphology PT 10.8 INR 1.1 APTT 24.4 VBG pH 7.37 VBG pCO2 48 H VBG pO2 41 VBG HCO3 28 VBG Total CO2 25 VBG O2 Saturation 74 VBG Base Excess 2.3 Sodium Potassium Chloride Carbon Dioxide Anion Gap BUN Creatinine Estimated GFR/1.73 m2 Glucose Calcium Magnesium Total Bilirubin AST ALT Alkaline Phosphatase Ammonia Troponin I Total Protein Albumin TSH Urine Color Yellow Urine Clarity Clear Urine pH 6.5 Ur Specific [place] 1.015 Urine Protein Trace H Urine Ketones Negative Urine Blood Negative Urine Nitrite Negative Urine Bilirubin Negative Urine Urobilinogen 0.2 Ur Leukocyte Esterase Negative Urine RBC Negative Urine WBC Negative Ur Epithelial Cells Negative Urine Crystals Negative Urine Bacteria Rare Urine Casts Negative Urine Mucus Trace Urine Other Negative Ur Culture Indicated? No Urine Glucose 100 Ethyl Alcohol 06/13/19 06/13/19 06/13/19 15:23 15:23 15:23 WBC 6.13 RBC 4.28 Hgb 12.7 Hct 37.2 MCV 86.9 MCH 29.7 MCHC 34.1 RDW 13.4 Plt Count 79 L MPV 10.9 Immature Gran % 0.2 Neutrophils % 74.8 Lymphocytes % 17.5 Monocytes % 6.7 Eosinophils % 0.8 Basophils % 0.0 Absolute Neutrophils 4.59 Absolute Lymphocytes 1.07 L Absolute Monocytes 0.41 Absolute Eosinophils 0.05 Absolute Basophils 0.00 Differential Comment Plt morph reviewed RBC Morphology Normal PT INR APTT VBG pH VBG pCO2 VBG pO2 VBG HCO3 VBG Total CO2 VBG O2 Saturation VBG Base Excess Sodium 142 Potassium 3.2 L Chloride 106 Carbon Dioxide 27.8 Anion Gap 8.2 BUN 25 H Creatinine 1.03 H Estimated GFR/1.73 m2 51.69 Glucose 74 Calcium 9.5 Magnesium Total Bilirubin 0.5 AST 16 ALT 21 Alkaline Phosphatase 86 Ammonia < 10 L Troponin I < 0.05 Total Protein 7.8 Albumin 3.4 TSH 0.63 Urine Color Urine Clarity Urine pH Ur Specific [place] Urine Protein Urine Ketones Urine Blood Urine Nitrite Urine Bilirubin Urine Urobilinogen Ur Leukocyte Esterase Urine RBC Urine WBC Ur Epithelial Cells Urine Crystals Urine Bacteria Urine Casts Urine Mucus Urine Other Ur Culture Indicated? Urine Glucose Ethyl Alcohol < 3.0 06/13/19 00:08 WBC RBC Hgb Hct MCV MCH MCHC RDW Plt Count MPV Immature Gran % Neutrophils % Lymphocytes % Monocytes % Eosinophils % Basophils % Absolute Neutrophils Absolute Lymphocytes Absolute Monocytes Absolute Eosinophils Absolute Basophils Differential Comment RBC Morphology PT INR APTT VBG pH VBG pCO2 VBG pO2 VBG HCO3 VBG Total CO2 VBG O2 Saturation VBG Base Excess Sodium Potassium Chloride Carbon Dioxide Anion Gap BUN Creatinine Estimated GFR/1.73 m2 Glucose Calcium Magnesium Total Bilirubin AST ALT Alkaline Phosphatase Ammonia Troponin I < 0.05 Total Protein Albumin TSH Urine Color Urine Clarity Urine pH Ur Specific [place] Urine Protein Urine Ketones Urine Blood Urine Nitrite Urine Bilirubin Urine Urobilinogen Ur Leukocyte Esterase Urine RBC Urine WBC Ur Epithelial Cells Urine Crystals Urine Bacteria Urine Casts Urine Mucus Urine Other Ur Culture Indicated? 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 Brother Essential hypertension Heart disease Hyperlipidemia Myocardial infarction Grandfather No problems noted. Grandfather No problems noted. Grandmother Diabetes Essential hypertension Hyperlipidemia Grandmother No problems noted. Son No problems noted. Daughter No problems noted. Social History Smoking/Tobacco Use Status: Former Tobacco Use Quit Date: 12/07/85 Alcohol Intake: current Alcohol Intake frequency: holidays/special occasions only Drug use: Never Substance use type: does not use Do you feel safe at home: Yes Do you feel safe in your relationship?: Yes
--- NOTE | 2019-06-14 12:09 | DM INPTCON_ITS ---
DESCRIPTION/ASSESSMENT: Appreciate diabetes consult for Maria Dolores Lazo who is hospitalized secondary to hypoglycemia event. She is well known to outpatient DSME in the distant past. Maria Dolores manages diabetes with glargine BID and Novolog 20-40u before meals. In addition, she takes Glipizide. A1c 8; 1 year ago A1c 7.1. She states she does not monitor her blood sugars as regularly as she knows she should. States she rarely becomes hypoglycemic. Met with Maria Dolores and her . Maria Dolores recognizes her mistake of going to the field having taken her insulin without eating her usual 2 toast. for breakfast. States she carries glucose tablets with her in the car, in her pocket book and often brings them with her. If working around the house she does not usually have them with her. States symptoms of hypoglycemia in fuzzy thinking, stomach issues. States she starts feeling hypoglycemic around 85mg/dl. Her asks what symptoms are for hypoglycemia. A1c is at the upper limit of her goal given she is 77 years old. INTERVENTION: DIscussed medication regimen which she is content with. Discussed efficiacy of glipizide given she is on multiple insulin dosing daily. Given that glipizide increases insulin output and she is on relatively high doses of insulin indicate insulin resistance and pancreatic insufficiency. Reviewed symptoms and treatment for hypoglycemia with Mr. Lazo. PLAN: Maria Dolores will increase frequency of monitoring blood sugars and to include before going away from the house. ask her PCP about need for Glipizide. She knows to call with questions or concerns regarding her diabetes management.
[2019-06-14 12:35] VITALS: BP 157/66; PULSE 64; RESP 18; TEMP 36.4; O2SAT 99
[2019-06-14] MEDS: Magnesium Oxide 400 MG TAB PO (13:20)
== END 2019-06-14 13:35 | disposition home or self-care (01) ==
LOC: ER 17:16 → MS 17:52
PROVIDERS: Admitting Provider Family Medicine; Emergency Provider Student in an Organized Health Care Education/Training Program; PCP Family Medicine; Visit Provider Internal Medicine
DX: E11.649 Type 2 diabetes mellitus with hypoglycemia without coma (principal); Z79.4 Long term (current) use of insulin; R41.82 Altered mental status, unspecified; E03.9 Hypothyroidism, unspecified; I25.10 Atherosclerotic heart disease of native coronary artery without angina pectoris; I10 Essential (primary) hypertension
CPT/HCPCS: 36415; 36416; 70496; 70498; 80053; 82805; 82962; 85027; 93005; 99220; 99238; 99285; 71045; 80320; 81003; 81015; 82140; 83735; 84443; 84484; 85025; 85610; 85730; 93010; 99217; G0378

== ENCOUNTER → 2019-07-01 10:32 | Outpatient (BNVA) | payer MEDICARE, OTHER, SELFPAY | PROVIDERS: PCP Family Medicine; Referring Provider Family Medicine; Visit Provider Surgery | DX: R22.31 Localized swelling, mass and lump, right upper limb (principal) | CPT/HCPCS: 99201; 99213 ==

== ENCOUNTER 2019-08-12 12:43 | Outpatient (CLI) | payer MEDICARE, OTHER, SELFPAY ==
--- NOTE | 2019-08-12 10:24 | DI.RAD_ITS ---
EXAM: XR ELBOW RT COMPLETE INDICATION: ARM MASS. COMPARISON: No exams were available for comparison TECHNIQUE: 2D digital imaging was performed. FINDINGS: Three views were obtained. The requisition raises the possibility of a mass of the arm. No bony mas s identified. There is osteophyte formation at the olecranon and at the flexor aspect of the proxima l ulnar articular surface. A loose osseous body is noted associated with the olecranon as well. The re is no elbow joint effusion seen. If there is a high clinical suspicion of a mass additional evaluation with MRI would be recommended. IMPRESSION:
== END 2019-08-12 13:03 ==
PROVIDERS: PCP Family Medicine; Referring Provider Family Medicine; Visit Provider Student in an Organized Health Care Education/Training Program
DX: R22.31 Localized swelling, mass and lump, right upper limb (principal); M25.721 Osteophyte, right elbow; M25.731 Osteophyte, right wrist; M24.021 Loose body in right elbow
CPT/HCPCS: 99214; 73080

== ENCOUNTER 2019-09-08 11:07 | Outpatient (CLI) | payer MEDICARE, OTHER, SELFPAY | END 2019-09-08 11:27 | PROVIDERS: PCP Family Medicine; Visit Provider Family Medicine | DX: E16.2 Hypoglycemia, unspecified (principal) | CPT/HCPCS: 36415; 83036 ==

== ENCOUNTER 2019-10-21 15:04 | Outpatient (CLI) | payer MEDICARE, OTHER, SELFPAY ==
--- NOTE | 2019-10-21 15:12 | DI.RAD_ITS ---
EXAM: XR KNEE RT 3V AP,LAT,MALIKA CLINICAL HISTORY: eval R knee pain TECHNIQUE: COMPARISON: No exams were available for comparison FINDINGS: Three views were obtained. There is marked narrowing of the medial tibiofemoral cartilaginous joint space with medial subluxation of the femur on the tibia. There is subchondral sclerosis of the adjac ent bones and moderate marginal osteophyte formation at the medial tibiofemoral joint. Moderate oste ophyte formation also noted involving the remaining joints of the knee. IMPRESSION: Severe DJD predominantly involving medial tibiofemoral joint
== END 2019-10-21 15:24 ==
PROVIDERS: PCP Family Medicine; Referring Provider Family Medicine; Visit Provider Student in an Organized Health Care Education/Training Program
DX: M25.561 Pain in right knee (principal); M17.11 Unilateral primary osteoarthritis, right knee; M25.761 Osteophyte, right knee; I10 Essential (primary) hypertension; E11.9 Type 2 diabetes mellitus without complications; Z79.4 Long term (current) use of insulin
CPT/HCPCS: 20610; 73562; 99213; J1040

== ENCOUNTER 2019-11-10 11:17 | Day surgery (SDC) | payer MEDICARE, OTHER, SELFPAY ==
--- NOTE | 2019-11-10 11:28 | ED.GENADUL_ITS ---
Discharge Plan Disposition Patient Disposition: [facility] INPATIENT Condition: Stable Discharge Details Chief Complaint: Laceration Clinical Impression: Mutilating hand injury Primary Care Provider: Houston Hilario ED Provider: Felice Mora Home Meds and New Rx's Prescriptions: No Action Novolog U-100 Insulin aspart 100 unit/mL solution 20 - 40 unit subcut AC Qty: 13 RF: 3 metoprolol tartrate 50 mg tablet 50 mg PO BID Qty: 180 RF: 4 nitroglycerin [Nitrostat] 0.4 mg tablet, sublingual 0.4 mg Sublingual PRN Qty: 25 RF: 0 oxybutynin chloride [Ditropan XL] 10 mg tablet extended release 24hr 10 mg PO DAILY Qty: 90 RF: 4 potassium gluconate 595 mg (99 mg) tablet 595 mg PO DAILY Qty: 90 RF: 3 ropinirole 0.5 mg tablet 0.5 - 1.5 mg PO HS Qty: 270 RF: 3 simvastatin [Zocor] 20 mg tablet 20 mg PO HS Qty: 90 RF: 4 levothyroxine [Synthroid] 175 mcg tablet 175 mcg PO DAILY Qty: 90 RF: 4 lisinopril 5 mg tablet 5 mg PO DAILY Qty: 90 RF: 4 duloxetine 30 mg capsule,delayed release(DR/EC) 30 mg PO DAILY Qty: 30 RF: 2 Lantus U-100 Insulin 100 unit/mL solution 10 - 30 unit subcut BID RF: 0 Januvia 50 mg tablet 50 mg PO DAILY Qty: 90 RF: 3 ASPIRIN 81 MG tablet 81 mg PO DAILY RF: 0 ascorbic acid (vitamin C) [Vitamin C] 500 MG tablet 500 mg PO BID RF: 0 loratadine [Claritin] 10 MG tablet 10 mg PO DAILY Qty: 90 RF: 4 Glucosamine Complex-MSM 1 EACH capsule 1 ea PO BID RF: 0 (DME) BD Insulin Syringe 1 EACH syringe 1 ea Sub-Q DIRECTED RF: 0 CALCIUM 600 + D TABLET 1 EACH tablet 1 ea PO BID RF: 0 SYSTANE 0.3-0.4% EYE DROPS 5 ML drops 1 drp OU DAILY RF: 0 loperamide [Anti-Diarrheal (loperamide)] 1 MG/5 ML liquid 4 mg PO PRN RF: 0 (DME) blood-glucose meter [Digital [employer] Ultra System Kit] 1 EACH kit 1 ea Miscellaneous QID Qty: 1 RF: 0 (DME) OneTouch Ultra Test 1 EACH strip 1 strip Sub-Q 5-6x/day Qty: 500 RF: 4 meclizine 25 MG tablet,chewable 25 mg PO TID PRNQty: 30 RF: 0 [place] 150 mcg film 150 mcg BC Q12H Qty: 60 RF: 0 acetaminophen 500 mg tablet 1,000 mg PO Q8H PRN (Reason: pain) Qty: 60 RF: 3 Medical Decision Making 79-year-old female with left hand palmar laceration from a table saw. It is oblique and traverses the proximal phalanx of the long finger, middle phalanx of the index finger and the base of the thumb. Distal sensation and motor are absent on the long finger. IV placed, screening labs obtained, patient given analgesia, Kefzol, referred for x-ray. There are comminuted fractures of the index and long finger. Patient seen in consultation by Dr. Sanon. Case is also discussed with on- call hand surgery at [facility] who stated the patient is only candidate for reimplantation in [place], or amputation. HPI General Mode of arrival: ambulatory . Date/Time Provider Initiated Documentation: 11/10/19 11:27 . Limitations to Documentation: no limitations . Information obtained by: patient and family . History of Present Illness 79 year old F presents to the emergency department with the chief complaint of Left hand table saw injury, described as moderate, Quality is described as constant, and is localized to the left and upper extremity. Patient reports no radiation. Patient started experiencing this minute(s) and it has been constant. No relieving factors improve symptom(s), No exacerbating factors reported . Patient notes no other symptoms. and other (Long finger flexion weakness and numbness). Patient did receive the following treatments prior to arrival, none Related Data Home Medications Medication Instructions Recorded Confirmed Aspirin 81 mg PO DAILY tab-cap 01/13/13 10/21/19 BD Insulin Syringe 01/13/13 10/21/19 Calcium 600 + D Tablet 1 ea PO BID 01/13/13 10/21/19 Glucosamine Complex-MSM 1 ea PO BID 01/13/13 10/21/19 Systane 0.3-0.4% Eye Drops 1 drp OU DAILY 01/13/13 10/21/19 ascorbic acid (vitamin C) [Vitamin 500 mg PO BID 01/13/13 10/21/19 C] loratadine [Claritin] 10 mg PO DAILY #90 tab-cap 01/13/13 10/21/19 loperamide [Anti-Diarrheal 4 mg PO PRN ml 05/31/14 10/21/19 (loperamide)] blood-glucose meter [OneTouch #1 kit 06/23/14 10/21/19 Ultra System Kit] [employer] Ultra Test #500 strip 01/24/17 10/21/19 meclizine 25 mg PO TID PRN #30 tab-cap 02/04/18 10/21/19 insulin aspart U-100 100 unit/mL 20 - 40 unit SUBCUT AC #13 vial 03/05/19 10/21/19 subcutaneous solution acetaminophen 1,000 mg PO Q8H PRN #60 tab 04/16/19 10/21/19 duloxetine 30 mg capsule,delayed 30 mg PO DAILY #30 cap 09/08/19 10/21/19 release levothyroxine 175 mcg tablet 175 mcg PO DAILY #90 tab-cap 09/08/19 10/21/19 lisinopril 5 mg tablet 5 mg PO DAILY #90 tab-cap 09/08/19 10/21/19 metoprolol tartrate 50 mg tablet 50 mg PO BID #180 tab-cap 09/08/19 10/21/19 nitroglycerin 0.4 mg sublingual 0.4 mg SUBLINGUAL PRN #25 tab-cap 09/08/19 10/21/19 tablet oxybutynin chloride 10 mg 10 mg PO DAILY #90 tab-cap 09/08/19 10/21/19 tablet,extended release 24 hr potassium gluconate 595 mg (99 mg) 595 mg PO DAILY #90 tab 09/08/19 10/21/19 tablet ropinirole 0.5 mg tablet 0.5 - 1.5 mg PO HS #270 tab-cap 09/08/19 10/21/19 simvastatin 20 mg tablet 20 mg PO HS #90 tab-cap 09/08/19 10/21/19 buprenorphine HCl 150 mcg buccal 150 mcg BC Q12H #60 each 10/06/19 10/21/19 film insulin glargine 100 unit/mL 10 - 30 unit SUBCUT BID vial 10/15/19 10/21/19 subcutaneous solution sitagliptin 50 mg tablet 50 mg PO DAILY #90 tab-cap 10/15/19 10/21/19 Previous Rx's Medication Instructions Recorded insulin aspart U-100 100 unit/mL 20 - 40 unit SUBCUT AC #13 vial 03/05/19 subcutaneous solution acetaminophen 1,000 mg PO Q8H PRN #60 tab 04/16/19 duloxetine 30 mg capsule,delayed 30 mg PO DAILY #30 cap 09/08/19 release levothyroxine 175 mcg tablet 175 mcg PO DAILY #90 tab-cap 09/08/19 lisinopril 5 mg tablet 5 mg PO DAILY #90 tab-cap 09/08/19 metoprolol tartrate 50 mg tablet 50 mg PO BID #180 tab-cap 09/08/19 nitroglycerin 0.4 mg sublingual 0.4 mg SUBLINGUAL PRN #25 tab-cap 09/08/19 tablet oxybutynin chloride 10 mg 10 mg PO DAILY #90 tab-cap 09/08/19 tablet,extended release 24 hr potassium gluconate 595 mg (99 mg) 595 mg PO DAILY #90 tab 09/08/19 tablet ropinirole 0.5 mg tablet 0.5 - 1.5 mg PO HS #270 tab-cap 09/08/19 simvastatin 20 mg tablet 20 mg PO HS #90 tab-cap 09/08/19 buprenorphine HCl 150 mcg buccal 150 mcg BC Q12H #60 each 10/06/19 film sitagliptin 50 mg tablet 50 mg PO DAILY #90 tab-cap 10/15/19 Allergies Allergy/AdvReac Type Severity Reaction Status Date / Time lansoprazole AdvReac Intermediate anxiety Verified 10/21/19 14:42 metoclopramide AdvReac Intermediate anxiety Verified 10/21/19 14:42 erythromycin base AdvReac Verified 10/21/19 14:42 ibuprofen AdvReac ABNORMAL Verified 10/21/19 14:42 KIDNEY FUNCTIONS metformin AdvReac DIARRHEA Verified 10/21/19 14:42 morphine patch AdvReac Intermediate Skin burn Uncoded 10/21/19 14:42 General Stated Complaint: Laceration PAUL: 2 Review of Systems Narrative: 6 systems reviewed and otherwise negative. Patient states her tetanus is up-to-date [facility] Medical History Acute renal failure syndrome due to NSAIDS Atherosclerosis of coronary artery bladder cancer 1995 Degenerative joint disease of right knee (Chronic) Aspiration/injection: 10/21/2019 Depressed mood (Acute) Diabetes mellitus, type 2 Edema extremities (Acute) dependency needs compression hose Essential hypertension Hypercholesterolemia Myocardial infarction 1996 Surgical History Amputation LONG FINGER RIGHT HAND- 1998 Appendectomy Biopsy of breast 05/13/17 RIGHT BREAST-[facility] [place] CARPAL TUNNEL 2002, 2010 Cholecystectomy Colonoscopy - IV Sedation [facility] [place] 2003 EGD - IV Sedation 2009 Extraction of cataract left 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 (Inactive 04/16/19) Status post surgical debridement on 04/16/2019 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 Pleasant, well groomed, interactive. HEAD: Normocephalic, atraumatic ENT: Mucous membranes moist, oropharynx unremarkable, External ear exam unremarkable EYES: PERRL, EOMI NECK: Full ROM, no KYA, no menigismus CHEST/RESP: Nontender, clear to auscultation bilateral, no wheeze/rhonchi/rales CARDIOVASCULAR: RRR, no murmur, rub lydia. 2+ Rad pulse bilateral EXT: The left hand has palmar lacerations obliquely oriented across the thumb index and long fingers. Sensation is absent on the long finger, there is no flexion present, the laceration is across the proximal phalanx of the long finger, the middle phalanx of the index finger, and the base of the thumb. Sensation is intact distally on the thumb and index fingers and they have positive flexion. Neuro: Grossly normal neurologic exam, conversant, interactive. Psych: Speech fluent, thoughts congruent, affect normal
--- NOTE | 2019-11-10 12:10 | DI.RAD_ITS ---
EXAM: XR HAND LT COMPLETE INDICATION: Table saw injury. COMPARISON: No exams were available for comparison TECHNIQUE: 2D digital imaging was performed. FINDINGS: There is a markedly comminuted, displaced fracture of the middle phalanx of the index finger. There is also fracture of the distal aspect of the proximal phalanx of the index finger. There is a commin uted, displaced fracture of the distal aspect of the proximal phalanx of the middle finger. The midd le phalanx of the middle finger appears intact. There are old fracture deformities of the augustin of t he index and middle fingers. Degenerative changes are seen at the 1st carpometacarpal joint. IMPRESSION: Comminuted, displaced fractures of the proximal middle phalanges of the index finger and proximal pha lanx of the middle finger.
[2019-11-10] MEDS: HYDROmorphone 2 MG/ML VIAL 0.5 MG IVP ×3 (12:29→14:39)
[2019-11-10] MEDS: ceFAZolin 1 GM/50 ML BAG IVPB (12:30)
[2019-11-10 12:55] LABS: Abs Immature Grans 0.01 k/cumm (0.0-0.09); Absolute Eosinophil Count 0.05 k/cumm (0.0-0.7); Absolute Lymphocyte Count 1.04 k/cumm (1.2-3.4); Absolute Monocyte Count 0.56 k/cumm (0.11-0.7); Absolute Neutrophil Count 4.09 k/cumm (1.2-6.7); Eosinophils % 0.9; HCT 34.8 % (36.0-46.0); HGB 11.6 g/dL (12.0-15.5); Immature Grans % 0.2 %; Lymphocytes % 18.1; Mean Corp. HGB Concentration 33.3 g/dL (32.0-36.0); Mean Corpuscular Hemoglobin 28.3 pg (27.0-33.0); Mean Corpuscular Volume 84.9 fL (80-95); Mean Platelet Volume 11.6 fL (8.0-11.0); Monocytes % 9.7; Neutrophils % 71.1; RBC Distribution Width 13.1 % (11.7-14.6); White Blood Cell Count 5.75 k/cumm (4.4-10.8)
[2019-11-10 12:58] LABS: Anion Gap 9.8 mmol/L (3-11); BUN 23 mg/dL (7-18); CO2 27.2 mmol/L (21.0-32.0); CREATININE 1.03 mg/dL (0.55-1.02); Calcium 9.2 mg/dL (8.5-10.1); Chloride 103 mmol/L (98-107); Estimated GFR 51.56 (mL/min/1.73m2); Glucose 190 mg/dL (74-106); Potassium 4.3 mmol/L (3.5-5.1); Sodium 140 mmol/L (136-145)
[2019-11-10 13:12] LABS: Diff Comment PLT Morph Reviewed; Platelet Count 99 x1000/uL (130-400); Polychromasia Present
[2019-11-10 13:26] VITALS: BP 112/63; PULSE 69; RESP 15; TEMP 36.4; O2SAT 99
[2019-11-10 14:40] VITALS: BP 122/84; PULSE 73; RESP 18; O2SAT 97
[2019-11-10] MEDS: Lactated Ringers 1,000 ML 30 ML IV (15:08)
--- NOTE | 2019-11-10 15:19 | OCONE_ITS ---
Date of service: 11/10/19 Time of Service: 12:47 History of Present Illness History of Present Illness Chief Complaint: Left Hand Table Saw Injury Narrative: Maria Dolores is a 79yo LHD female who I have seen previously for a table saw injury to the left hand, index and middle fingers. Today she was using a table saw to cut some kindling and is not sure what happened but she cut her left hand, thumb, index, and middle fingers. She had notable exposed tissue and therefore was brought to the emergency department. She has notable pain. She reports deformity and lacerations to the index, middle, and thumb. She reports no sensation to the tip of the middle finger. She also has a numb sensation of the index finger. She does report active bleeding. She has otherwise been in good health. She did eat and drink about 4 or so hours ago. 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 She has notable injury to the left hand with bone, tendon, vascular, and nerve involvement. I had a long discussion with Maria Dolores. I personally think the best option will be to complete the amputation through the index and middle fingers. This will affect her function but I think it is the best option to allow her to progress. Her social situation is complicated by a with severe dementia who requires 24/[address] care[address] I [address] Dr[address] Mora discussed this case with [facility] while I was in the operating room. The hand surgical team at [facility] also agreed that she needs a replant service or amputation. I had a long discussion once again with Maria Dolores after reviewing the case with [facility] and she agrees that replantation in [place] is not feasible. Therefore , I discussed completion amputation with Maria Dolores. I expressed my intention to save as much as I can but I was very pessimistic that we would have much more than very small stumps. I reviewed the technical features of the case. I discussed risk to include bleeding, infection, pain, stiffness, need for repeat procedures, nerve pain or neuroma, skin loss. Despite these risk, she elects to proceed. She did receive antibiotics here in the emergency department. These will be repeated in the operating room. 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, initial encounter (3) Laceration of left thumb: Status: Acute Qualifiers: Encounter type: initial encounter Damage to nail status: without damage Foreign body presence: without foreign body Qualified Code(s): S61.012A - Laceration without foreign body of left thumb without damage to nail, initial encounter Review of Systems All systems reviewed & are unremarkable except as noted in HPI and below PFSH Medical History Acute renal failure syndrome due to NSAIDS Atherosclerosis of coronary artery bladder cancer 1995 Degenerative joint disease of right knee (Chronic) Aspiration/injection: 10/21/2019 Depressed mood (Acute) Diabetes mellitus, type 2 Edema extremities (Acute) dependency needs compression hose Essential hypertension Hypercholesterolemia Myocardial infarction 1996 Surgical History Amputation LONG FINGER RIGHT HAND- 1998 Appendectomy Biopsy of breast 05/13/17 RIGHT BREAST-[facility] [place] CARPAL TUNNEL 2002, 2010 Cholecystectomy Colonoscopy - IV Sedation [facility] [place] 2003 EGD - IV Sedation 2009 Extraction of cataract left 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 Diabetes Essential hypertension Heart disease BYPASS SURGERY Hyperlipidemia Father Diabetes Essential hypertension Heart disease [place] Hyperlipidemia Myocardial infarction Sister No problems noted. Brother Essential hypertension Heart disease Hyperlipidemia Myocardial infarction Grandfather No problems noted. Grandfather No problems noted. Grandmother Diabetes Essential hypertension Hyperlipidemia Grandmother No problems noted. Son No problems noted. Daughter No problems noted. Social History Smoking/Tobacco Use Status: Former Tobacco Use Quit Date: 12/07/85 Alcohol Intake: current Alcohol Intake frequency: holidays/special occasions only Drug use: Never Substance use type: does not use Do you feel safe at home: Yes Do you feel safe in your relationship?: Yes Exam Narrative Exam Narrative: Mild distress. Guarding the left hand. Alert and oriented x3. Breathing comfortably. Evaluation of the left hand shows notable deformity of the index finger and middle finger. The middle finger is fully straight and has no significant rigidity to it. She is unable to flex nor extend the middle finger. She is able demonstrate some extension of the index finger. She is unable to demonstrate flexion although the finger still has a fairly normal-appearing posture. There are complex laceration seen about the index finger middle fi nger. There is a 2 cm jagged laceration of the thumb. Thumb IP flexion is intact. Thumb extension is intact. Sensation about the thumb is also intact. As for the index finger, there is a complex laceration primarily of the palmar aspect of the index finger at the level of the middle phalanx between the proximal and distal flexion creases of the digit. There is exposed tendon. There is a radial deviation to the digit. She has no sensation over the ulnar aspect of the digit. She has intact sensation over the radial aspect. As for the middle finger, once again, there is a complex laceration at the level just proximal to the proximal flexion crease. There is exposed tendon and bone. Sensation is diminished over the radial aspect and absent over the ulnar aspect. This finger has a slightly more white appearance although capillary refill is approximate 3 to 4 seconds. The wounds are otherwise clean. No gross debris. Results Last Vital Signs Temp 35.9 C L 11/10/19 16:56 Pulse 71 11/10/19 16:56 Resp 16 11/10/19 16:56 BP 130/55 L 11/10/19 16:56 Pulse Ox 98 11/10/19 16:56 Labs Result diagrams: 11/10/19 12:42 11/10/19 12:42 Labs: Laboratory Results - last 24 hr 11/10/19 11/10/19 12:42 12:42 WBC 5.75 RBC 4.10 Hgb 11.6 L Hct 34.8 L MCV 84.9 MCH 28.3 MCHC 33.3 RDW 13.1 Plt Count 99 L MPV 11.6 H Immature Gran % 0.2 Neutrophils % 71.1 Lymphocytes % 18.1 Monocytes % 9.7 Eosinophils % 0.9 Basophils % 0.0 Absolute Neutrophils 4.09 Absolute Lymphocytes 1.04 L Absolute Monocytes 0.56 Absolute Eosinophils 0.05 Absolute Basophils 0.00 Differential Comment Plt morph reviewed RBC Morphology See below Polychromasia Present Sodium 140 Potassium 4.3 Chloride 103 Carbon Dioxide 27.2 Anion Gap 9.8 BUN 23 H Creatinine 1.03 H Estimated GFR/1.73 m2 51.56 Glucose 190 H Calcium 9.2 Imaging Imaging Studies: X-ray of the left hand demonstrates comminuted fractures of the index and middle fingers. The index finger has a complex fracture through the base of the proximal phalanx with notable diastases and comminution. The middle finger has a comminuted fracture through the proximal phalanx involving the joint surface as well as with some proximal extension.
[2019-11-10] MEDS: Sodium Bicarbonate 50 MEQ/50 ML VIAL (16:03)
[2019-11-10] MEDS: Bacitracin 30 GM TUBE (16:27)
[2019-11-10] MEDS: Hydrogen Peroxide 3% 480 ML BTL (16:28)
[2019-11-10 16:56] VITALS: BP 130/55; PULSE 71; RESP 16; TEMP 35.9; O2SAT 98
--- NOTE | 2019-11-10 17:08 | W.PM.DS.N ---
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: Status: Acute (2) Partial traumatic amputation of left middle finger through phalanx: Status: Acute (3) Laceration of left thumb: Status: Acute Discharge Plan Disposition Patient Disposition: HOME Condition: Stable Discharge Details Chief Complaint: Laceration Clinical Impression: Mutilating hand injury Reason For Visit: Left Hand Table Saw Injury Attending Provider: Medhat Sanon Primary Care Provider: Houston Hilario ED Provider: Felice Mora Home Meds and New Rx's Prescriptions: New ibuprofen 600 mg tablet 600 mg PO TID PRNQty: 90 RF: 3 cephalexin 500 mg capsule 500 mg PO Q8H Qty: 6 RF: 0 Continued Novolog U-100 Insulin aspart 100 unit/mL solution 20 - 40 unit subcut AC Qty: 13 RF: 3 metoprolol tartrate 50 mg tablet 50 mg PO BID Qty: 180 RF: 4 nitroglycerin [Nitrostat] 0.4 mg tablet, sublingual 0.4 mg Sublingual PRN Qty: 25 RF: 0 oxybutynin chloride [Ditropan XL] 10 mg tablet extended release 24hr 10 mg PO DAILY Qty: 90 RF: 4 potassium gluconate 595 mg (99 mg) tablet 595 mg PO DAILY Qty: 90 RF: 3 ropinirole 0.5 mg tablet 0.5 - 1.5 mg PO HS Qty: 270 RF: 3 simvastatin [Zocor] 20 mg tablet 20 mg PO HS Qty: 90 RF: 4 levothyroxine [Synthroid] 175 mcg tablet 175 mcg PO DAILY Qty: 90 RF: 4 lisinopril 5 mg tablet 5 mg PO DAILY Qty: 90 RF: 4 duloxetine 30 mg capsule,delayed release(DR/EC) 30 mg PO DAILY Qty: 30 RF: 2 Lantus U-100 Insulin 100 unit/mL solution 10 - 30 unit subcut BID RF: 0 Januvia 50 mg tablet 50 mg PO DAILY Qty: 90 RF: 3 ASPIRIN 81 MG tablet 81 mg PO DAILY RF: 0 ascorbic acid (vitamin C) [Vitamin C] 500 MG tablet 500 mg PO BID RF: 0 loratadine [Claritin] 10 MG tablet 10 mg PO DAILY Qty: 90 RF: 4 Glucosamine Complex-MSM 1 EACH capsule 1 ea PO BID RF: 0 CALCIUM 600 + D TABLET 1 EACH tablet 1 ea PO BID RF: 0 SYSTANE 0.3-0.4% EYE DROPS 5 ML drops 1 drp OU DAILY RF: 0 loperamide [Anti-Diarrheal (loperamide)] 1 MG/5 ML liquid 4 mg PO PRN RF: 0 meclizine 25 MG tablet,chewable 25 mg PO TID PRNQty: 30 RF: 0 Bel[place]uca 150 mcg film 150 mcg BC Q12H Qty: 60 RF: 0 acetaminophen 500 mg tablet 1,000 mg PO Q8H PRN (Reason: pain) Qty: 60 RF: 3 No Action (DME) BD Insulin Syringe 1 EACH syringe 1 ea Sub-Q DIRECTED RF: 0 (DME) blood-glucose meter [OneTouch Ultra System Kit] 1 EACH kit 1 ea Miscellaneous QID Qty: 1 RF: 0 (DME) OneTouch Ultra Test 1 EACH strip 1 strip Sub-Q 5-6x/day Qty: 500 RF: 4 Discharge Instructions Additional Instructions: Activity: Keep your hand elevated as much as possible for the next 3-5 days. Do not try to move too much within your dressing. Dressings: You should keep the initial surgical dressing in place until your follow-up appointment. You should keep it clean and dry. Medications: - You should take Tylenol and Ibuprofen around the clock as prescribed or per pipe cutter's recommendations. Follow-up: 5-7 days for wound check and suture removal. Referrals: Medhat Sanon MD [ [facility] STAFF PHYSICIAN] - Activity:: Elevate Remove Dressings/Wound Care:: Do Not Remove Shower/Bathe:: Cover Diet:: As Tolerated Discharge Orders Discharge Orders: Discharge Order (Routine); Ordered 11/10/19 Ordered By: Medhat Sanon DS: Summary Status at Discharge Functional status at discharge: independent ambulation Overall status at discharge: patient is progressing back to baseline Mental Status: mental status grossly normal Speech and Movement: speech and movement normal Mood: congruent mood Affect: normal affect Exam Psych Mental Status: mental status grossly normal Speech and Movement: speech and movement normal Mood: congruent mood Affect: normal affect DS: Data Vitals/I&O Vitals and I&O: Vital Signs Temperature 35.9 C L 11/10/19 16:56 Temperature Source Tympanic 11/10/19 16:56 Pulse 71 11/10/19 16:56 Respiratory Rate 16 11/10/19 16:56 Respiratory Effort 11/10/19 11:27 Blood Pressure 130/55 L 11/10/19 16:56 Pulse Oximetry 98 11/10/19 16:56 Oxygen Delivery Method Room Air 11/10/19 16:56 Oxygen Flow Rate 0 11/10/19 16:56 Pain Level 0 11/10/19 16:56 Intake & Output 11/09/19 11/10/19 11/10/19 23:59 11:59 23:59 Intake Total 250 / 250 Balance 250 / 250 Weight 90.718 kg Intake: IV 250 / 250 Data Completed and Pending Labs on day of discharge: Labs from last 24 hours 11/10/19 11/10/19 12:42 12:42 WBC 5.75 RBC 4.10 Hgb 11.6 L Hct 34.8 L MCV 84.9 MCH 28.3 MCHC 33.3 RDW 13.1 Plt Count 99 L MPV 11.6 H Immature Gran % 0.2 Neutrophils % 71.1 Lymphocytes % 18.1 Monocytes % 9.7 Eosinophils % 0.9 Basophils % 0.0 Absolute Neutrophils 4.09 Absolute Lymphocytes 1.04 L Absolute Monocytes 0.56 Absolute Eosinophils 0.05 Absolute Basophils 0.00 Differential Comment Plt morph reviewed RBC Morphology See below Polychromasia Present Sodium 140 Potassium 4.3 Chloride 103 Carbon Dioxide 27.2 Anion Gap 9.8 BUN 23 H Creatinine 1.03 H Estimated GFR/1.73 m2 51.56 Glucose 190 H Calcium 9.2 PFSH Medical History Acute renal failure syndrome due to NSAIDS Atherosclerosis of coronary artery bladder cancer 1995 Degenerative joint disease of right knee (Chronic) Aspiration/injection: 10/21/2019 Depressed mood (Acute) Diabetes mellitus, type 2 Edema extremities (Acute) dependency needs compression hose Essential hypertension Hypercholesterolemia Myocardial infarction 1996 Surgical History Amputation LONG FINGER RIGHT HAND- 1998 Appendectomy Biopsy of breast 05/13/17 RIGHT BREAST[place] [place], 2010 Cholecystectomy Colonoscopy - IV Sedation [facility] [place] EGD - IV Sedation 2009 Extraction of cataract left 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 Diabetes Essential hypertension Heart disease BYPASS SURGERY Hyperlipidemia Father Diabetes Essential hypertension Heart disease [place] Hyperlipidemia Myocardial infarction Sister No problems noted. Brother Essential hypertension Heart disease Hyperlipidemia Myocardial infarction Grandfather No problems noted. Grandfather No problems noted. Grandmother Diabetes Essential hypertension Hyperlipidemia Grandmother No problems noted. Son No problems noted. Daughter No problems noted. Social History Smoking/Tobacco Use Status: Former Tobacco Use Quit Date: 12/07/85 Alcohol Intake: current Alcohol Intake frequency: holidays/special occasions only Drug use: Never Substance use type: does not use Do you feel safe at home: Yes Do you feel safe in your relationship?: Yes
[2019-11-10 17:37] VITALS: BP 107/50; PULSE 68; RESP 16; TEMP 36.6; O2SAT 98
--- NOTE | 2019-11-10 18:56 | CMPROGNOTE_ITS ---
- If Service Date Differs Date of service: 11/10/19 Time of Service: 18:56 Care Management Progress Note JAKY was consulted to meet with Maria Dolores in the ED. She presented to the ED with a laceration, mutilating hand injury. When JAKY met with her, she was going to be taken to surgery by Dr. Sanon. Per provider, she is the primary caregiver of her , Sanchez, who, per spouse's report, has dementia and was with her in the room. CM was advised that they would return home post surgery, as it would be a short procedure, but they were unsure where her would stay during the procedure. JAKY met with a student in the ED who offered to sit with him in the waiting room. CM offered to be paged if needed, and to assist the student, as needed, while they wait. CM checked in on Mr. Lazo x2 while his was in the OR. Once the procedure was finished, JAKY met with Dr. Sanon, who led Mahamed Lazo to his . CM offered to coordinate a ride home, if necessary.
--- NOTE | 2019-11-10 19:09 | W.PM.OP ---
Date of service: 11/10/19 Time of Service: 16:12 Operative Note Operative Note DATE OF PROCEDURE: 11/10/19 PRE-OP DIAGNOSIS: Partial amputation of left index finger and middle finger, complex left thumb laceration POST-OP DIAGNOSIS: same PROCEDURE: Revision amputation of the left index and middle fingers, complex laceration repair of left thumb, approximately 3 cm SURGEON: Medhat Sanon FAMILY LIFE COUNSELOR: Yesenia Montano ANESTHESIA: local ESTIMATED BLOOD LOSS: 10 PATHOLOGY: none sent COMPLICATIONS: None Patient was transported to: floor Patient's condition: stable Indications: Maria Dolores is an 79-year-old [id number] female who unfortunately had a table saw injury. She was seen in the emergency department and diagnosed with complex partial amputations of the index and middle fingers involving both bone, tendon, nerve, and vessel. After discussion with Dre as well as the patient, I recommended revision amputation of the index middle finger with a complex laceration of the left thumb. I reviewed the risk of the procedure to include bleeding, infection, pain, stiffness, wound healing complications or skin loss, need for repeat procedures. After reviewing these risk and other options, she elects to proceed. Findings: There were complex lacerations of the index and middle fingers with notable tearing of tissue structures involving the bone, tendon, nerves and vessels. The radial neurovascular bundle appear to be intact on both sides. The bone was definitely on reconstructable and revision amputations were performed. The thumb laceration was approximately 3 and half centimeters and involves some loss of tissue but no bone or tendon involvement. Procedure Description: Maria Dolores was greeted in the preoperative holding area. Her identity was confirmed. The correct site was identified. The consent was reviewed the patient and signed. She was brought back to the operating room. She is placed in the supine position. She received a dose of antibiotics in the operating room. She also received a dose of preoperative, prophylactic cefazolin. The palmar surface of the left hand was first prepped with Betadine. A timeout was performed for safe surgery. Digital blocks were then performed using 1% lidocaine with epinephrine, buffered with sodium bicarbonate. This was done for the index and middle fingers. Once this had set up, the left upper extremity is then prepped with Betadine and prepped with standard draping. Starting with the middle finger anesthesia was confirmed. The radial aspect of the finger had an intact bridge of skin which appeared viable with intact neurovascular bundle. There was notable comminution of the proximal phalanx fracture with complete laceration of the extensor tendons as well as flexor tendons and the ulnar neurovascular bundle. I left some excess skin over the radial aspect and then transected the remainder revising the amputation. Any bony comminution which was not attached soft tissue was removed. There did appear to be some comminution of the fracture in the proximal phalanx which extended proximally. However, it was relatively stable and therefore I left it as is. Maria Dolores requested that we preserve as much length as possible. The ulnar digital nerve was not able to be discovered in the ulnar soft tissue. The wound was then thoroughly irrigated. After the bony length was established I then brought the radial flap over to cover the end. I used a 4-0 nylon to reattach the skin and then excised excess. Attention was then turned to the index finger. Once again, there was a radial bridge of skin and soft tissue. However, there is significant comminution of the base of the middle phalanx. A radial flap was left intact and the remainder of the digit was removed. Comminution of the base of the middle phalanx was removed. This exposed the head of the proximal phalanx. Using bone cutters, the edges of the proximal phalanx were removed and a rasp and rongeur was used to smooth them down so there is no prominent edges. The wound was then thoroughly irrigated. The radial skin flap was brought over the top to cover. This was secured with a 4-0 nylon. Excess skin was excised sharply. Attention was then turned to the left thumb. This laceration was notably devoid of some skin interposed between the 2 skin edges. The laceration was approximate 3-1/2 cm and did go deep although it did not involve any tendon or bone. The wound was thoroughly irrigated. There is no gross debris. The skin edges were reapproximated and secured with a 4-0 nylon. However, there was some gap due to the loss of tissue. The wounds were then dressed with bacitracin, Xeroform, 4 x 4 fluffs, Kerlix and an Raymundo wrap. It was secured in a mid type fashion. Maria Dolores tolerated the procedure well and was transferred to the floor in a stable condition.
== END 2019-11-10 18:20 | disposition home or self-care (01) ==
LOC: ER 14:37 → SUR 14:52 → MS 16:51
PROVIDERS: Emergency Provider Emergency Medicine; PCP Family Medicine; Visit Provider Student in an Organized Health Care Education/Training Program
PROC: 0X6P0Z1 Detachment at Left Index Finger, High, Open Approach (ICD-10-PCS; CPT 26951; principal; 2019-11-10 15:15)
DX: S68.621A 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, initial encounter (principal); S68.623A 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, initial encounter; S61.012A Laceration without foreign body of left thumb without damage to nail, initial encounter; W31.2XXA Contact with powered woodworking and forming machines, initial encounter
CPT/HCPCS: 26951 ×2; 13132; 36415; 80048; 96365; 96366; 96375; 96376; 99253; 99285; NC; 73130; 85025; J0690

== ENCOUNTER → 2019-11-15 13:12 | Outpatient (BNVA) | payer MEDICARE, OTHER, SELFPAY | PROVIDERS: PCP Family Medicine; Referring Provider Family Medicine; Visit Provider Student in an Organized Health Care Education/Training Program | DX: S68.621D 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, subsequent encounter (principal); S68.623D Partial traumatic transphalangeal amputation of left middle finger, subsequent encounter; S61.012D Laceration without foreign body of left thumb without damage to nail, subsequent encounter; W31.2XXD Contact with powered woodworking and forming machines, subsequent encounter ==

== ENCOUNTER 2019-11-25 15:11 | Inpatient (IN) | payer MEDICARE, OTHER, SELFPAY ==
[2019-11-25] VITALS (61 sets, daily range): BP systolic 134–192; BP diastolic 49–79; PULSE 88–109; RESP 13–29; TEMP 36.4–36.6; O2SAT 96–100
--- NOTE | 2019-11-25 15:32 | ED.GENADUL_ITS ---
Discharge Plan Disposition Patient Disposition: [facility] INPATIENT Condition: Improving Discharge Details Chief Complaint: Nausea/Vomit/Diar Clinical Impression: Diabetes mellitus, type 2, DKA (diabetic ketoacidoses), Acute dehydration, Nausea and vomiting Admit Date/Time: 11/25/19 21:12 Admit Provider: Ric Loaiza Attending Provider: Ric Loaiza Primary Care Provider: Houston Hilario ED Provider: Fredy Whittaker Discharge Data Discharge Date/Time-TO BE ENTERED AT DEPARTURE: 11/25/19 22:30 Medical Decision Making This is an 79-year-old female with a past medical history of type 2 diabetes who is insulin-dependent, as well as CAD, GERD, hypertension, high cholesterol, hypothyroidism who presents today for evaluation of nausea and vomiting for the last 48 hours. She states that her has had similar symptoms. She has not been able to eat or drink anything in the last 2 days, in addition to this she has not taken any of her home medications including her insulin. She was scheduled to see orthopedics for follow-up about her finger amputations that occurred earlier this May, however because of her symptoms she was unable to. Glucose readings have been greater then readable on her machine. She presents for further assessment. Exam demonstrates mild reproducible epigastric tenderness, no concerning red flags of chest pain chest tightness heaviness or shortness of breath or bandlike sensation around the chest. She states that the symptoms feel completely different than her previous cardiac disease. She appears notably dry. Signs and symptoms are clinically concerning for DKA secondary to potential gastroenteritis. CT scan was ordered and demonstrates no evidence of acute process or obstruction. Suspect abdominal pain is secondary to mild gastroparesis. Labs demonstrate notably elevated anion gap of 22, sugar of 700, otherwise stable electrolytes. Bicarb is low. pH is 7.32. Urine ketones are present. Symptoms are concerning for DKA-like picture. Insulin drip was started at 0.1 units/kg/h. Additional bolus of 15 units of subcutaneous insulin was also given. Patient was rehydrated carefully with her age. After 1.5 to 2 L repeat labs were drawn and the patient had a notable improvement, with her anion gap decreasing to 14, her bicarb normalizing, her clinical status notably improving. However she still has some mild to moderate difficulty tolerating p.o. Because of her age, frailty I do feel that admission would be beneficial. Additionally the patient's is demented, and notably confused and cannot care for himself at home. He is o therwise very stable on bedside assessment. Case management has reviewed the situation and does recommend that the stay here with the patient tonight. At this time patient symptoms are clinically consistent with DKA, no evidence of acute life-threatening abdominal pathology. She has no concerning red flags of chest pain shortness of breath at this time. And no evidence of obstruction or ileus on CT scan. Urinalysis is negative for infection, and she has no fever or chills. Lipase is normal. Additionally I suspect her symptoms were most likely brought on by a viral gastroenteritis as her has had very similar symptoms in the last 48 hours. I have discussed the case with the hospitalist , he agrees with the assessment and plan. Patient will be admitted to [facility] for further management. I have extensively reviewed the treatment plan with the patient. I have addressed all patient concerns at this time. I have also discussed the plan with the admitting physician and they agree with the current assessment and plan and have agreed to assume responsibility for the patient. All parties demonstrate verbal understanding and agreement with our assessment and plan at this time. FINDINGS: Liver: The liver surface is nodular. Gallbladder and bile ducts: Normal. No calcified stones. No ductal dilation. Pancreas: Normal. No ductal dilation. Spleen: Normal. No splenomegaly. Adrenals: Normal. No mass. Kidneys and ureters: Normal. No hydronephrosis. Stomach and bowel: Unremarkable. No obstruction. No mucosal thickening. Appendix: No evidence of appendicitis. Intraperitoneal space: Unremarkable. No free air. No significant fluid collection. Vasculature: Atherosclerotic calcification of the aorta and the major vessels. Lymph nodes: Unremarkable. No enlarged lymph nodes. Bladder: Unremarkable as visualized. Reproductive: Unremarkable as visualized. Bones/joints: Diffuse demineralization of the bones. Soft tissues: Unremarkable. IMPRESSION: No acute abdominal or pelvic abnormality. Liver surface is slightly irregular/nodular which may represent cirrhosis. Thank you for allowing us to participate in the care of your patient. Dictated and Authenticated by: Perico Reese DO 11/25/2019 4:23 PM Eastern Time ([place] & [place]) HPI General Date/Time Provider Initiated Documentation: 11/25/19 15:16 . HPI Narrative: This is an 79-year-old female who is a type II diabetic and insulin- dependent, with history of coronary artery disease, GERD, hypertension, high cholesterol, hypothyroidism, also recently mutilated her fingers with a chop saw, and eventually required subsequent amputation surgery in early November, presents today for 48 to 72 hours of nausea, vomiting, inability to tolerate anything p.o., and inability to take any of her medications for the last 48 hours. She is scheduled to see orthopedics for her fingers today but was unable to go to the appointment secondary to her symptoms. Aside for the lower abdominal pain and nausea with mild epigastric discomfort she denies any chest pain, chest heaviness, chest tightness, cough, fever, chills, shortness of breath. She does state that her has had very similar near identical symptoms and has not been eating either himself. She denies any arm neck or shoulder pain. She denies any hematochezia, hematemesis, melena or acholic stool. She denies any other complaints at this time. Per patient sugar reads at home have been read as too high to measure. Patient has no other complaints at this time. Related Data Home Medications Medication Instructions Recorded Confirmed Aspirin 81 mg PO DAILY tab-cap 01/13/13 11/25/19 BD Insulin Syringe 01/13/13 10/21/19 Calcium 600 + D Tablet 1 ea PO BID 01/13/13 11/25/19 Glucosamine Complex-MSM 1 ea PO BID 01/13/13 11/25/19 Systane 0.3-0.4% Eye Drops 1 drp OU DAILY 01/13/13 11/25/19 ascorbic acid (vitamin C) [Vitamin 500 mg PO BID 01/13/13 11/25/19 C] loratadine [Claritin] 10 mg PO DAILY #90 tab-cap 01/13/13 11/25/19 loperamide [Anti-Diarrheal 4 mg PO PRN ml 05/31/14 11/25/19 (loperamide)] blood-glucose meter [OneTouch #1 kit 06/23/14 10/21/19 Ultra System Kit] OneTouch Ultra Test #500 strip 01/24/17 10/21/19 meclizine 25 mg PO TID PRN #30 tab-cap 02/04/18 11/25/19 insulin aspart U-100 100 unit/mL 20 - 40 unit SUBCUT AC #13 vial 03/05/19 11/25/19 subcutaneous solution duloxetine 30 mg capsule,delayed 30 mg PO DAILY #30 cap 09/08/19 11/25/19 release levothyroxine 175 mcg tablet 175 mcg PO DAILY #90 tab-cap 09/08/19 11/25/19 lisinopril 5 mg tablet 5 mg PO DAILY #90 tab-cap 09/08/19 11/25/19 metoprolol tartrate 50 mg tablet 50 mg PO BID #180 tab-cap 09/08/19 11/25/19 nitroglycerin 0.4 mg sublingual 0.4 mg SUBLINGUAL PRN #25 tab-cap 09/08/19 11/25/19 tablet oxybutynin chloride 10 mg 10 mg PO DAILY #90 tab-cap 09/08/19 11/25/19 tablet,extended release 24 hr potassium gluconate 595 mg (99 mg) 595 mg PO DAILY #90 tab 09/08/19 11/25/19 tablet ropinirole 0.5 mg tablet 0.5 - 1.5 mg PO HS #270 tab-cap 09/08/19 11/25/19 simvastatin 20 mg tablet 20 mg PO HS #90 tab-cap 09/08/19 11/25/19 insulin glargine 100 unit/mL 10 - 30 unit SUBCUT BID vial 10/15/19 11/25/19 subcutaneous solution sitagliptin 50 mg tablet 50 mg PO DAILY #90 tab-cap 10/15/19 11/25/19 acetaminophen 1,000 mg PO Q8H PRN #60 tab 11/10/19 11/25/19 ibuprofen 600 mg PO TID PRN #90 tab 11/10/19 11/25/19 buprenorphine HCl 150 mcg buccal 150 mcg BC Q12H #60 each 11/12/19 11/25/19 film Previous Rx's Medication Instructions Recorded insulin aspart U-100 100 unit/mL 20 - 40 unit SUBCUT AC #13 vial 03/05/19 subcutaneous solution duloxetine 30 mg capsule,delayed 30 mg PO DAILY #30 cap 09/08/19 release levothyroxine 175 mcg tablet 175 mcg PO DAILY #90 tab-cap 09/08/19 lisinopril 5 mg tablet 5 mg PO DAILY #90 tab-cap 09/08/19 metoprolol tartrate 50 mg tablet 50 mg PO BID #180 tab-cap 09/08/19 nitroglycerin 0.4 mg sublingual 0.4 mg SUBLINGUAL PRN #25 tab-cap 09/08/19 tablet oxybutynin chloride 10 mg 10 mg PO DAILY #90 tab-cap 09/08/19 tablet,extended release 24 hr potassium gluconate 595 mg (99 mg) 595 mg PO DAILY #90 tab 09/08/19 tablet ropinirole 0.5 mg tablet 0.5 - 1.5 mg PO HS #270 tab-cap 09/08/19 simvastatin 20 mg tablet 20 mg PO HS #90 tab-cap 09/08/19 sitagliptin 50 mg tablet 50 mg PO DAILY #90 tab-cap 10/15/19 acetaminophen 1,000 mg PO Q8H PRN #60 tab 11/10/19 ibuprofen 600 mg PO TID PRN #90 tab 11/10/19 buprenorphine HCl 150 mcg buccal 150 mcg BC Q12H #60 each 11/12/19 film Allergies Allergy/AdvReac Type Severity Reaction Status Date / Time lansoprazole AdvReac Intermediate anxiety Verified 11/25/19 13:19 metoclopramide AdvReac Intermediate anxiety Verified 11/25/19 13:19 erythromycin base AdvReac Verified 11/25/19 13:19 ibuprofen AdvReac ABNORMAL Verified 11/25/19 13:19 KIDNEY FUNCTIONS metformin AdvReac DIARRHEA Verified 11/25/19 13:19 morphine patch AdvReac Intermediate Skin burn Uncoded 10/21/19 14:42 General Stated Complaint: Nausea/Vomit/Diar PAUL: 3 Review of Systems All systems reviewed & are unremarkable except as noted in HPI and below PFSH Medical History (Updated 11/25/19 @ 23:56 by Ric Loaiza) Acute renal failure syndrome due to NSAIDS Atherosclerosis of coronary artery PA 1996 with subsequent PCI single stent; normal follow-up stress MPI November 16, 2014 bladder cancer 1995 Degenerative joint disease of right knee (Chronic) Aspiration/injection: 10/21/2019 Depressed mood (Acute) Diabetes mellitus, type 2 Edema extremities (Acute) dependency needs compression hose Essential hypertension Hypercholesterolemia Myocardial infarction 1996, subsequent PCI single stent Weight loss, non-intentional (Acute) Surgical History Amputation LONG FINGER RIGHT HAND- 1998 Appendectomy [place] of [place] 05/13[place] [place], [place] Cholecystectomy Colonoscopy - [place] [facility] [place]GD - IV Sedation 2009 Extraction of cataract left 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 Diabetes Essential hypertension Heart disease BYPASS SURGERY Hyperlipidemia Father Diabetes Essential hypertension Heart disease PA Hyperlipidemia Myocardial infarction Sister No problems noted. Brother Essential hypertension Heart disease Hyperlipidemia Myocardial infarction Grandfather No problems noted. Grandfather No problems noted. Grandmother Diabetes Essential hypertension Hyperlipidemia Grandmother No problems noted. Son No problems noted. Daughter No problems noted. Social History Smoking/Tobacco Use Status: Former Tobacco Use Quit Date: 12/07/85 Alcohol Intake: current Alcohol Intake frequency: holidays/special occasions only Drug use: Never Substance use type: does not use Current gender identity: female Do you feel safe at home: Yes Do you feel safe in your relationship?: Yes Exam Narrative Exam Narrative: 1.Const: Well-nourished, Well-developed, appearing stated age 2.Eyes: PERRL, no conjunctival injection, and symmetrical lids. 3.ENT: Atraumatic external nose and ears. Notably dry MM. Neck: Symmetric, trachea midline, No thyromegaly. 4.CVS: +S1/S2, No murmurs or gallops. Peripheral pulses 2+ and equal in all extremities. Brisk capillary refill in all extremities. 5.RESP: Unlabored respiratory effort. Clear to auscultation bilaterally. No wheezes rales or rhonchi 6.GI: Soft, Nondistended, No hepatosplenomegaly. No guarding or rebound. Mild reproducible epigastric tenderness, no pain at McBurney's point, negative Isaac sign. No CVA tenderness. 7.MSK: Normocephalic, No cyanosis or clubbing, Normal movement of all extremities, except for in her left hand for which she demonstrates amputated fingers which are otherwise clean dry well-healing. 8.Skin: Warm, Dry. No rashes or lesions. 9.Neuro: dairy tester II-XII grossly intact. Sensation grossly intact, no focal neurologic deficits. 10.Psych: (AAO) x3. Appropriate mood and affect Course Vital Signs Vital signs: Vital Signs Temperature 36.4 C L 11/25/19 15:13 Pulse 99 H 11/25/19 15:13 Respiratory Rate 18 11/25/19 15:13 Blood Pressure 192/79 H 11/25/19 15:13 Pulse Oximetry 100 11/25/19 15:13 Temperature 36.4 C L 11/25/19 15:13 Temperature Source Temporal Artery Scan 11/25/19 15:13 Pulse 99 H 11/25/19 15:13 Respiratory Rate 18 11/25/19 15:13 Respiratory Effort Non-Labored 11/25/19 15:20 Blood Pressure 192/79 H 11/25/19 15:13 Blood Pressure Position Supine 11/25/19 15:13 Pulse Oximetry 100 11/25/19 15:13 Oxygen Delivery Method Room Air 11/25/19 15:13 Oxygen Flow Rate 0 11/25/19 15:13
[2019-11-25] MEDS: Normal Saline 1,000 ML 1000 ML IV (15:36)
[2019-11-25 15:39] LABS: HCO3 (Venous) 20 mmol/L (22-28); O2 Sat (Venous) 43 % (70-80); TCO2 (Venous) 18 mmol/L (22-29); pCO2 (Venous) 39 mm/Hg (34-47); pH (Venous) 7.32 (7.35-7.45); pO2 (Venous) 25 mm/Hg (28-44)
[2019-11-25 15:43] LABS: Abs Immature Grans 0.03 k/cumm (0.0-0.09); Absolute Basophil Count 0.01 k/cumm (0.0-0.2); Absolute Eosinophil Count 0.02 k/cumm (0.0-0.7); Absolute Lymphocyte Count 0.76 k/cumm (1.2-3.4); Absolute Monocyte Count 0.37 k/cumm (0.11-0.7); Absolute Neutrophil Count 8.96 k/cumm (1.2-6.7); Basophils % 0.1; Eosinophils % 0.2; HCT 43.4 % (36.0-46.0); HGB 14.7 g/dL (12.0-15.5); Immature Grans % 0.3 %; Lymphocytes % 7.5; Mean Corp. HGB Concentration 33.9 g/dL (32.0-36.0); Mean Corpuscular Hemoglobin 28.7 pg (27.0-33.0); Mean Corpuscular Volume 84.6 fL (80-95); Mean Platelet Volume 11.6 fL (8.0-11.0); Monocytes % 3.6; Neutrophils % 88.3; Platelet Count 112 x1000/uL (130-400); RBC 5.13 m/cumm (4.00-5.20); RBC Distribution Width 14.5 % (11.7-14.6); White Blood Cell Count 10.15 k/cumm (4.4-10.8)
--- NOTE | 2019-11-25 15:49 | DI.CT_ITS ---
EXAM: CT ABDOMEN PELVIS WO CLINICAL HISTORY: vomiting, epigastric abdominal pain, NPO 3 days TECHNIQUE: CT examination of the abdomen and pelvis was performed without contrast administration. COMPARISON: CT BRAIN NECK CTA from 06/13/2019 FINDINGS: Images obtained through the lung bases are unremarkable. There are severe degenerative changes of the lumbar spine with a left convex lumbar scoliosis The hepatic contour is nodular raising the possibility of cirrhosis. No focal hepatic lesion by nonco ntrast criteria. Unremarkable appearance of the spleen. Unremarkable appearance of the pancreas. Gall bladder not well visualized. No biliary dilatation. Adrenals are unremarkable in appearance bilaterally. No evidence of urinary tract calcification or ob struction. No gross renal mass by noncontrast criteria. Abdominal aorta is of normal diameter. No gross abdominal or pelvic adenopathy. No significant abdominal wall hernia. No evidence of bowel o bstruction. Appendix not specifically visualized but there is no evidence of appendicitis or divertic ulitis. Wholesaler structures grossly unremarkable. IMPRESSION: Findings of nodular hepatic contour raising the possibility of cirrhosis. No acute findings.
[2019-11-25 16:01] LABS: ALT 14 U/L (14-59); AST 12 U/L (15-37); Albumin 3.7 g/dL (3.4-5.0); Alkaline Phosphatase 107 U/L (46-116); Anion Gap 22.2 mmol/L (3-11); BUN 18 mg/dL (7-18); Bilirubin, Total 1.2 mg/dL (0.2-1.0); CO2 20.8 mmol/L (21.0-32.0); CREATININE 1.38 mg/dL (0.55-1.02); Chloride 92 mmol/L (98-107); Estimated GFR 36.79 (mL/min/1.73m2); Lipase 49 U/L (73-393); Potassium 4.6 mmol/L (3.5-5.1); Sodium 135 mmol/L (136-145); Total Protein 7.8 g/dL (6.4-8.2)
[2019-11-25 16:03] LABS: Glucose 695 mg/dL (74-106)
[2019-11-25] MEDS: INSULIN REGULAR IN 0.9 % NACL 100 UNIT/100 ML BAG 7.75 UNIT IV (16:14)
--- NOTE | 2019-11-25 16:23 | DI.VRAD_ITS ---
PROCEDURE INFORMATION: Exam: CT Abdomen And Pelvis Without Contrast Exam date and time: 11/25/2019 3:49 PM Age: 79 years old Clinical indication: Other: Epigastric and abdominal pain; Patient HX: Vomiting and epigastric pain, npo x3 days TECHNIQUE: Imaging protocol: Computed tomography of the abdomen and pelvis without contrast. Radiation optimization: All CT scans at this facility use at least one of these dose optimization techniques: automated exposure control; mA and/or kV adjustment per patient size (includes targeted exams where dose is matched to clinical indication); or iterative reconstruction. COMPARISON: CT ABD PELVIS WITH CONTRAST 12/24/2016 10:24 AM FINDINGS: Liver: The liver surface is nodular. Gallbladder and bile ducts: Normal. No calcified stones. No ductal dilation. Pancreas: Normal. No ductal dilation. Spleen: Normal. No splenomegaly. Adrenals: Normal. No mass. Kidneys and ureters: Normal. No hydronephrosis. Stomach and bowel: Unremarkable. No obstruction. No mucosal thickening. Appendix: No evidence of appendicitis. Intraperitoneal space: Unremarkable. No free air. No significant fluid collection. Vasculature: Atherosclerotic calcification of the aorta and the major vessels. Lymph nodes: Unremarkable. No enlarged lymph nodes. Bladder: Unremarkable as visualized. Reproductive: Unremarkable as visualized. Bones/joints: Diffuse demineralization of the bones. Soft tissues: Unremarkable. IMPRESSION: No acute abdominal or pelvic abnormality. Liver surface is slightly irregular/nodular which may represent cirrhosis. Dictated and Authenticated by: Perico Reese MD. Ordering:REBECCA Daniel MD
[2019-11-25 16:26] LABS: Bilirubin Negative (Negative); Blood Negative (Negative); Clarity Clear (Clear); Glucose 500 mg/dL (Negative); Ketones 80 mg/dL (Negative); Leukocyte Esterase Negative (Negative); Nitrite Negative (Negative); Specific Gravity >= 1.030 (1.005-1.025); Urobilinogen 0.2 EU/dL (Up TO 0.2); pH 5.5 (5-8)
[2019-11-25] MEDS: Ondansetron 4 MG/2 ML VIAL IVP ×2 (16:45→19:55)
[2019-11-25] MEDS: Normal Saline 500 ML IV (17:05)
[2019-11-25] MEDS: Insulin REGULAR-Human 100 UNITS/ML UNIT 15 UNITS SC (17:12)
[2019-11-25 20:05] LABS: Anion Gap 14.6 mmol/L (3-11); BUN 17 mg/dL (7-18); CO2 24.4 mmol/L (21.0-32.0); CREATININE 1.21 mg/dL (0.55-1.02); Calcium 9.7 mg/dL (8.5-10.1); Chloride 100 mmol/L (98-107); Estimated GFR 42.81 (mL/min/1.73m2); Glucose 368 mg/dL (74-106); Potassium 3.6 mmol/L (3.5-5.1); Sodium 139 mmol/L (136-145)
[2019-11-25] MEDS: Normal Saline 1,000 ML 85 ML IV (21:32)
--- NOTE | 2019-11-25 22:10 | HPE_ITS ---
Date of service: 11/25/19 Time of Service: 22:10 Assessment and Plan Assessment and plan (1) DKA (diabetic ketoacidoses): Status: Acute Assessment and plan: Anion gap is been normalizing. We will recheck her BMP later tonight. Continue with IV fluid hydration but will decrease the rate of her IV fluids given her advanced age and history of coronary artery disease we would like to avoid putting her into congestive heart failure. We will check her blood sugars every 2 hours and give her subcutaneous insulin accordingly. She will get a dose of Lantus tonight. I will get an A1c in the morning. We will advance her diet as tolerated and transition her over to basal bolus insulin in the morning. I will check an EKG and troponin level to be sure she is not having acute coronary syndrome. I will add potassium to her IV fluids as her potassium has dropped significantly since she presented in DKA. Potassium is initially 4.6 and dropped to 3.6. Qualifiers: Diabetes mellitus complication detail: without coma Diabetes mellitus type: type 2 Qualified Code(s): E11.10 - Type 2 diabetes mellitus with ketoacidosis without coma (2) Dehydration: Status: Acute Assessment and plan: Continued gentle IV fluid hydration with potassium supplementation. (3) Gastroenteritis: Status: Acute Assessment and plan: IV fluid hydration and as needed antiemetics. (4) Essential hypertension: Status: Acute Assessment and plan: Continue her home medications of Lisinopril and metoprolol tartrate (5) Partial traumatic amputation of left middle finger through phalanx: Status: Acute Assessment and plan: We will asked Dr. 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 No acute EKG changes. Will trend out her troponin level to ensure that no acute coronary syndrome is occurred. Patient has no acute chest pains tonight History of Present Illness History of Present Illness Chief Complaint: Nausea/vomiting x2 days, unable to eat or drink, high glucose Narrative: 79-year-old female with a past medical history of type 2 diabetes mellitus requiring insulin, such hypertension, hypothyroidism, coronary atherosclerosis with prior RI presents to the emergency department with nausea and vomiting for the last 2 days unable to keep any food or liquids down.Per Dr. Whittaker, emergency room attending, he felt that the patient had an acute gastroenteritis versus gastroparesis from her diabetes mellitus. Her glucose on arrival was 695 and she was found to be in mild DKA with a VBG pH of 7.32 and an anion gap of 22.2 and a bicarbonate level of 20.8 and elevated c reatinine 1.38. LFTs were normal and lipase was normal. No EKG or troponin levels were done. CT of the abdomen and pelvis showed no acute abdominal or pelvic abnormalities. Liver has a slightly irregular nodular appearance consistent with cirrhosis. Spleen adrenals kidneys and pancreas were all normal. There is no evidence of appendicitis. There was no evidence for bowel obstruction. Patient was treated emergency department with IV fluids and was given about 1- 1/2 to 2 L of IV fluids. She was given Zofran for the nausea. She was given morphine for her abdominal pain. And she was started on insulin drip at 7.75 units an hour. Initial labs were done at 1530 and repeat labs are drawn at 1950 and showed her anion gap to be closing at 14.6 and her carbon dioxide coming up to 24.4 and her creatinine was down to 1.21 and her glucose was now 368. She is weaned off the insulin drip and placed on subcutaneous insulin and her last glucose was down 314. Her urinalysis showed a specific gravity of the greater than 1.030 with 80 mg/dL ketones and negative for protein blood leukocyte esterase and nitrites but with 500 mg/dL glucose in her urine. She is admitted to the medical/surgical floor for treatment of gastroenteritis and dehydration and mild DKA. Blood glucose levels will be monitored every 2 hours and She will be given NovoLog subcutaneously. Furthermore she will be given a dose of Lantus tonight and placed on NPH every 12 hours in addition to nightly Lantus. I explained to the ER attending that presently we have no ICU beds and if the patient requires IV insulin she may need to be brought back down to the emergency room where she can be closely monitored while receiving IV insulin. The ER staff was reluctant to transfer out to a tertiary care center as her demented cannot be left home alone and care management is already approved for him to stay overnight with the patient in her room. I have ordered a stat EKG and a troponin level to make sure there is been no acute coronary syndrome as a cause for her DKA and acute nausea and vomiting and abdominal pain. Patient states that she has had some diarrhea couple days ago with loose bowel m ovements but no melena nor any hematochezia. She also notes that she had some substernal chest discomfort that only lasted for a few minutes occurring a couple days ago but none today. Review of Systems Constitutional Constitutional: Denies chills, Denies fever(s), Denies night sweats, Reports poor appetite and Reports weakness Eyes Eyes: Reports system reviewed and no additional complaints, except as docu ENT Ears, Nose, Mouth, and Throat: Reports system reviewed and no additional complaints, except as docu Cardiovascular Cardiovascular: Reports as per HPI Respiratory Respiratory: Reports system reviewed and no additional complaints, except as docu Gastrointestinal Gastrointestinal: Reports as per HPI Genitourinary Genitourinary: Reports system reviewed and no additional complaints, except as docu Musculoskeletal Musculoskeletal: Reports joint swelling (Knees) and Reports other (Amputations of the left index and middle finger with no drainage from the amputation sites) Integumentary/Breasts Skin/Breast: Reports system reviewed and no additional complaints, except as docu Neurologic Neurologic: Reports system reviewed and no additional complaints, except as docu and Reports weakness Psychiatric Psychiatric: Reports depression (Depression previously under control with duloxetine recently exacerbated since she stopped her medicines 3 to 4 days ago.) Endocrine Endocrine: Reports as per HPI Hematologic/Lymphatic Hematologic/Lymphatic: Reports system reviewed and no additional complaints, except as docu Allergic/Immunologic Allergic/Immunologic: Reports system reviewed and no additional complaints, except as docu [facility] Medical History (Updated 11/25/19 @ 23:56 by Ric Loaiza) Acute renal failure syndrome due to NSAIDS Atherosclerosis of coronary artery RI 1996 with subsequent PCI single stent; normal follow-up stress MPI November 16, 2014 bladder cancer 1995 Degenerative joint disease of right knee (Chronic) Aspiration/injection: 10/21/2019 Depressed mood (Acute) Diabetes mellitus, type 2 Edema extremities (Acute) dependency needs compression hose Essential hypertension Hypercholesterolemia Myocardial infarction 1996, subsequent PCI single stent Weight loss, non-intentional (Acute) Surgical History Amputation LONG FINGER RIGHT HAND- 1998 Appendectomy Biopsy of breast 05/13/17 RIGHT BREAST-[facility] [place] CARPAL TUNNEL 2002, 2010 Cholecystectomy Colonoscopy - IV Sedation [facility] [place] 2003 EGD - IV Sedation 2009 Extraction of cataract left 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 Diabetes Essential hypertension Heart disease BYPASS SURGERY Hyperlipidemia Father Diabetes Essential hypertension Heart disease RI Hyperlipidemia Myocardial infarction Sister No problems noted. Brother Essential hypertension Heart disease Hyperlipidemia Myocardial infarction Grandfather No problems noted. Grandfather No problems noted. Grandmother Diabetes Essential hypertension Hyperlipidemia Grandmother No problems noted. Son No problems noted. Daughter No problems noted. Social History Smoking/Tobacco Use Status: Former Tobacco Use Quit Date: 12/07/85 Alcohol Intake: current Alcohol Intake frequency: holidays/special occasions only Drug use: Never Substance use type: does not use Current gender identity: female Do you feel safe at home: Yes Do you feel safe in your relationship?: Yes Meds Home Medications and Allergies Home Medications Medication Instructions Recorded Confirmed Type Aspirin 81 mg PO DAILY tab-cap 01/13/13 11/25/19 History BD Insulin Syringe 01/13/13 10/21/19 History Calcium 600 + D Tablet 1 ea PO BID 01/13/13 11/25/19 History Glucosamine Complex-MSM 1 ea PO BID 01/13/13 11/25/19 History Systane 0.3-0.4% Eye Drops 1 drp OU DAILY 01/13/13 11/25/19 History ascorbic acid (vitamin C) [Vitamin 500 mg PO BID 01/13/13 11/25/19 History C] loratadine [Claritin] 10 mg PO DAILY #90 tab-cap 01/13/13 11/25/19 History loperamide [Anti-Diarrheal 4 mg PO PRN ml 05/31/14 11/25/19 History (loperamide)] blood-glucose meter [OneTouch #1 kit 06/23/14 10/21/19 History Ultra System Kit] OneTouch Ultra Test #500 strip 01/24/17 10/21/19 History meclizine 25 mg PO TID PRN #30 tab-cap 02/04/18 11/25/19 History insulin aspart U-100 100 unit/mL 20 - 40 unit SUBCUT AC #13 vial 03/05/1911/04 Rx subcutaneous solution duloxetine 30 mg capsule,delayed 30 mg PO DAILY #30 cap 09/08/19 11/25/19 Rx release levothyroxine 175 mcg tablet 175 mcg PO DAILY #90 tab-cap 09/08/19 11/25/19 Rx lisinopril 5 mg tablet 5 mg PO DAILY #90 tab-cap 09/08/19 11/25/19 Rx metoprolol tartrate 50 mg tablet 50 mg PO BID #180 tab-cap 09/08/19 11/25/19 Rx nitroglycerin 0.4 mg sublingual 0.4 mg SUBLINGUAL PRN #25 tab-cap 09/08/19 11/25/19 Rx tablet oxybutynin chloride 10 mg 10 mg PO DAILY #90 tab-cap 09/08/19 11/25/19 Rx tablet,extended release 24 hr potassium gluconate 595 mg (99 mg) 595 mg PO DAILY #90 tab 09/08/19 11/25/19 Rx tablet ropinirole 0.5 mg tablet 0.5 - 1.5 mg PO HS #270 tab-cap 09/08/19 11/25/19 Rx simvastatin 20 mg tablet 20 mg PO HS #90 tab-cap 09/08/19 11/25/19 Rx insulin glargine 100 unit/mL 10 - 30 unit SUBCUT BID vial 10/15/19 11/25/19 H istory subcutaneous solution sitagliptin 50 mg tablet 50 mg PO DAILY #90 tab-cap 10/15/19 11/25/19 Rx acetaminophen 1,000 mg PO Q8H PRN #60 tab 11/10/19 11/25/19 Rx ibuprofen 600 mg PO TID PRN #90 tab 11/10/19 11/25/19 Rx buprenorphine HCl 150 mcg buccal 150 mcg BC Q12H #60 each 11/12/19 11/25/19 Rx film Allergies Allergy/AdvReac Type Severity Reaction Status Date / Time lansoprazole AdvReac Intermediate anxiety Verified 11/25/19 13:19 metoclopramide AdvReac Intermediate anxiety Verified 11/25/19 13:19 erythromycin base AdvReac Verified 11/25/19 13:19 ibuprofen AdvReac ABNORMAL Verified 11/25/19 13:19 KIDNEY FUNCTIONS metformin AdvReac DIARRHEA Verified 11/25/19 13:19 morphine patch AdvReac Intermediate Skin burn Uncoded 10/21/19 14:42 Exam Narrative Exam Narrative: Elderly female lying in bed in no acute distress. HEENT is unremarkable. Neck supple nontender no JVD normal carotid pulses no bruits Lungs are clear to auscultation Heart is regular with a soft systolic ejection murmur over the aortic outflow track grade 2/6. No thrill or heave or gallop. Abdomen soft and nontender with normal active bowel sounds no distention no guarding and no rebound tenderness and no organomegaly. Lower extremities without peripheral cyanosis or edema. Right great toe has a subungual hematoma. Right hand has amputation of the distal phalanx of the second digit. Left hand has amputations of the distal phalanx of the index and middle digit. The wounds on the left index and middle finger are not draining any discharge. Neurologic exam is nonfocal no gross cranial nerve abnormalities no focal motor deficits. Results Labs Result diagrams: 11/25/19 15:30 11/25/19 22:20 Labs: Laboratory Results - last 24 hr 11/25/19 11/25/19 11/25/19 15:30 15:30 15:30 WBC 10.15 RBC 5.13 Hgb 14.7 Hct 43.4 MCV 84.6 MCH 28.7 MCHC 33.9 RDW 14.5 Plt Count 112 L MPV 11.6 H Immature Gran % 0.3 Neutrophils % 88.3 Lymphocytes % 7.5 Monocytes % 3.6 Eosinophils % 0.2 Basophils % 0.1 Absolute Neutrophils 8.96 H Absolute Lymphocytes 0.76 L Absolute Monocytes 0.37 Absolute Eosinophils 0.02 Absolute Basophils 0.01 VBG pH 7.32 L VBG pCO2 39 VBG pO2 25 L VBG HCO3 20 L VBG Total CO2 18 L VBG O2 Saturation 43 L VBG Base Excess Sodium 135 L Potassium 4.6 Chloride 92 L Carbon Dioxide 20.8 L Anion Gap 22.2 H BUN 18 Creatinine 1.38 H Estimated GFR/1.73 m2 36.79 Glucose 695 H* Calcium 10.0 Total Bilirubin 1.2 H AST 12 L ALT 14 Alkaline Phosphatase 107 Total Protein 7.8 Albumin 3.7 Lipase 49 Urine Color Urine Clarity Urine pH Ur Specific [place] Urine Protein Urine Ketones Urine Blood Urine Nitrite Urine Bilirubin Urine Urobilinogen Ur Leukocyte Esterase Urine Glucose 11/25/19 11/25/19 16:12 19:50 WBC RBC Hgb Hct MCV MCH MCHC RDW Plt Count MPV Immature Gran % Neutrophils % Lymphocytes % Monocytes % Eosinophils % Basophils % Absolute Neutrophils Absolute Lymphocytes Absolute Monocytes Absolute Eosinophils Absolute Basophils VBG pH VBG pCO2 VBG pO2 VBG HCO3 VBG Total CO2 VBG O2 Saturation VBG Base Excess Sodium 139 Potassium 3.6 D Chloride 100 Carbon Dioxide 24.4 Anion Gap 14.6 H BUN 17 Creatinine 1.21 H Estimated GFR/1.73 m2 42.81 Glucose 368 H D Calcium 9.7 Total Bilirubin AST ALT Alkaline Phosphatase Total Protein Albumin Lipase Urine Color Yellow Urine Clarity Clear Urine pH 5.5 Ur Specific [place] >= 1.030 H Urine Protein Negative Urine Ketones 80 H Urine Blood Negative Urine Nitrite Negative Urine Bilirubin Negative Urine Urobilinogen 0.2 Ur Leukocyte Esterase Negative Urine Glucose 500 H Last Vital Signs Temp 36.4 C L 11/25/19 15:13 Pulse 94 H 11/25/19 22:01 Resp 19 11/25/19 18:20 BP 134/52 L 11/25/19 22:01 Pulse Ox 97 11/25/19 22:01
[2019-11-25 22:32] LABS: Anion Gap 12.3 mmol/L (3-11); BUN 17 mg/dL (7-18); CO2 26.7 mmol/L (21.0-32.0); CREATININE 1.14 mg/dL (0.55-1.02); Calcium 9.8 mg/dL (8.5-10.1); Chloride 101 mmol/L (98-107); Estimated GFR 45.86 (mL/min/1.73m2); Glucose 320 mg/dL (74-106); Potassium 3.8 mmol/L (3.5-5.1); Sodium 140 mmol/L (136-145)
[2019-11-25 22:44] LABS: Troponin I 0.09 ng/Ml (<0.06)
[2019-11-25] MEDS: Insulin Glargine 300 UNITS/3 ML PEN 15 UNITS SC (23:17)
[2019-11-26] VITALS (7 sets, daily range): BP systolic 78–131; BP diastolic 45–77; PULSE 69–81; RESP 17–18; TEMP 36.6–36.9; O2SAT 95–99
[2019-11-26] MEDS: Insulin Aspart 300 UNITS/3 ML PEN SC ×7 (00:17→22:39)
[2019-11-26] MEDS: Pantoprazole 40 MG VIAL IVP (00:21)
[2019-11-26 01:43] LABS: Troponin I 0.08 ng/Ml (<0.06)
[2019-11-26] MEDS: Levothyroxine 175 MCG TAB PO (05:20)
[2019-11-26 05:32] LABS: Bilirubin Small (Negative); Blood Negative (Negative); Clarity Clear (Clear); Glucose 500 mg/dL (Negative); Ketones 80 mg/dL (Negative); Leukocyte Esterase Negative (Negative); Nitrite Negative (Negative); Specific Gravity >= 1.030 (1.005-1.025); Urobilinogen 0.2 EU/dL (Up TO 0.2); pH 5.5 (5-8)
[2019-11-26 05:35] LABS: RBC Negative HPF (0-2); WBC 0-2 HPF (0-5)
[2019-11-26 05:36] LABS: Bacteria Rare HPF (Negative); C & S Indicated? No; Casts Negative LPF (Negative); Crystals Negative HPF (Negative); Epithelial Cells Few HPF (Negative); Mucus Negative (Negative)
[2019-11-26 07:37] LABS: Abs Immature Grans 0.02 k/cumm (0.0-0.09); Absolute Eosinophil Count 0.05 k/cumm (0.0-0.7); Absolute Lymphocyte Count 2.08 k/cumm (1.2-3.4); Absolute Monocyte Count 0.45 k/cumm (0.11-0.7); Absolute Neutrophil Count 3.66 k/cumm (1.2-6.7); Eosinophils % 0.8; HCT 34.3 % (36.0-46.0); HGB 11.6 g/dL (12.0-15.5); Immature Grans % 0.3 %; Lymphocytes % 33.2; Mean Corp. HGB Concentration 33.8 g/dL (32.0-36.0); Mean Corpuscular Hemoglobin 28.6 pg (27.0-33.0); Mean Corpuscular Volume 84.7 fL (80-95); Mean Platelet Volume 11.2 fL (8.0-11.0); Monocytes % 7.2; Neutrophils % 58.5; RBC 4.05 m/cumm (4.00-5.20); RBC Distribution Width 14.5 % (11.7-14.6); White Blood Cell Count 6.26 k/cumm (4.4-10.8)
[2019-11-26 07:51] LABS: Anion Gap 8.9 mmol/L (3-11); BUN 15 mg/dL (7-18); CO2 27.1 mmol/L (21.0-32.0); CREATININE 0.98 mg/dL (0.55-1.02); Calcium 8.9 mg/dL (8.5-10.1); Chloride 102 mmol/L (98-107); Estimated GFR 54.61 (mL/min/1.73m2); Glucose 325 mg/dL (74-106); Magnesium 1.5 mg/dL (1.8-2.4); Potassium 4.1 mmol/L (3.5-5.1); Sodium 138 mmol/L (136-145)
[2019-11-26 07:57] LABS: Troponin I 0.07 ng/Ml (<0.06)
[2019-11-26 08:10] LABS: Diff Comment PLT Morph Reviewed; Platelet Count 88 x1000/uL (130-400); Polychromasia Present
[2019-11-26] MEDS: Oxybutynin-CR 5 MG TABCR 10 MG PO (08:16)
[2019-11-26] MEDS: Aspirin 81 MG CHEW CH (08:17)
[2019-11-26] MEDS: DULoxetine 30 MG CAP PO (08:17)
[2019-11-26] MEDS: Metoprolol 50 MG TAB PO (08:17)
[2019-11-26] MEDS: Lisinopril 5 MG TAB PO (08:17)
[2019-11-26] MEDS: Insulin NPH-Human 300 UNITS/3 ML PEN 15 UNIT SC (08:22)
[2019-11-26] MEDS: MAGNESIUM SULFATE 4 GM/100 ML BAG IVPB (09:19)
[2019-11-26 12:50] LABS: Troponin I 0.05 ng/Ml (<0.06)
--- NOTE | 2019-11-26 13:03 | PDOC.CMIN ---
- If Service Date Differs Date of service: 11/26/19 Time of Service: 13:03 Care Management Initial Assess REASON FOR HOSPITALIZATION:: Abdominal pain, nausea, DKA PAST MEDICAL HISTORY/PAST SURGICAL HISTORY:: Acute renal failure syndrome, atherosclerosis of coronary artery, degenerative joint disease, depression, diabetes type 2, lower extremity edema, essential hypertension, hypercholesteremia, myocardial infarction in 1996. Surgical history: Amputation long right finger, traumatic amputation of left 2 fingers, biopsy of the breast, appendectomy, carpal tunnel, stent placement right coronary artery 1996. Cholecystectomy, cataract removal. PREVIOUS FUNCTIONAL STATUS/SOCIAL/FAMILY SUPPORTS:: Maria Dolores lives with her in her own home in [place]. She has 2 children both live in [place]. Her spouse has significant dementia and confusion whom she cares for. Both Maria Dolores and her [address] and transport themselves to and from appointments. Maria Dolores enjoys being out in the [place], working on her home, she spends a lot of time gardening and caring for her animals. CURRENT FUNCTIONAL STATUS:: Maria Dolores is alert, engaged with CM during assessment. She states she is feeling better today, she is concerned about her being present in the hospital. CM contacted her daughter who is coming up from [place] to pickling drum operator Sanchez and bring him home. Maria Dolores reports that they do not have any local support and her and Sanchez count on each other for support. ADVANCE DIRECTIVES:: On file daughter is agent Has patient been provided with information about the portal?: Yes Did the patient sign up for the portal?: No CODE STATUS:: Full Code INSURANCE COVERAGE / FINANCIAL ISSUES:: Medicare and [employer] life CURRENT HOME/COMMUNITY SERVICES/EQUIPMENT:: [employer] on aging, currently in the process of obtaining Meals on Wheels. PRIMARY CARE PHYSICIAN:: Dr. Hilario POTENTIAL DISCHARGE NEEDS:: Follow-up appointment scheduled primary care provider PATIENT/FAMILY EDUCATION NEEDS:: Discharge education, limitations, follow-up plan of care, asked me 3 and self-management ANTICIPATED BARRIERS TO DISCHARGE:: None TRANSPORTATION:: Via private car with family at time of discharge. Of note Maria Dolores's car is located at [facility] in [place] and pickup of the motor vehicle will need to be arranged with her and family. PLAN:: Maria Dolores remains acute at this time, blood sugars have improved, symptom management of nausea and pain. Anticipate Maria Dolores will return home when medically ready, resumption of community services CM will refer patient and to [facility]. Daughter will be here between 5 and 6 PM to pickling drum operator Maria Dolores's and bring him home.
--- NOTE | 2019-11-26 13:38 | W.NUTCONSULT ---
Date of service: 11/26/19 Time of Service: 13:39 Nutritional Consult ASSESSMENT: 79 year old male admitted for DKA, dehydration, gastroenteritis, weight loss and poorly controlled diabetes. Dm consult pending with CDE. Currently on CHO/clear diet. c/o of n/v for last couple of days. Suspect weight loss due to uncontrolled DM. At high nutritional risk in view of weight loss, poorly controlled DM and DKA. NUTRITIONAL DIAGNOSIS: DKA INTERVENTION: DM consult MONITORING AND EVALUATION: weight, po intake, labs Time Spent in Nutritional Counseling and Treatment: 0 time spent face to face
--- NOTE | 2019-11-26 13:43 | W.NUTCONSULT ---
Date of service: 11/26/19 Time of Service: 13:43 Nutritional Consult ASSESSMENT: Maria Dolores admitted with
[2019-11-26] MEDS: POTASSIUM CHLORIDE/0.9% NACL 1,000 ML 85 MEQ IV (16:01)
--- NOTE | 2019-11-26 16:37 | W.PM.PROGNOT ---
Date of Service Date of service: 11/26/19 Time of Service: 16:37 Assessment and Plan Assessment and plan (1) DKA (diabetic ketoacidoses): Status: Resolved Assessment and plan: Anion gap has closed. A1C is 10.0. Has been transitioned to basal bolus insulin. Diabetes education consulted. D/c IVF. Qualifiers: Diabetes mellitus type: type 2 Diabetes mellitus complication detail: without coma Qualified Code(s): E11.10 - Type 2 diabetes mellitus with ketoacidosis without coma (2) Dehydration: Status: Resolved Assessment and plan: D/c IVF. (3) Gastroenteritis: Status: Resolved Assessment and plan: Resolved. No abdominal pain/nausea/diarrhea. Advance diet. Resume outpatient insulin regimen. (4) Essential hypertension: Status: Acute Assessment and plan: Continue Lisinopril and metoprolol tartrate (5) Partial traumatic amputation of left middle finger through phalanx: Status: Acute Assessment and plan: Orthopedics consulted. 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 Will monitor on tele overnight, but low concern for ischemia (8) DVT prophylaxis: Status: Acute Assessment and plan: TEDs, SCDs. No chemical DVT ppx due to chronic thrombocytopenia (9) Discharge planning issues: Status: Acute Assessment and plan: Full code Likely discharge home tomorrow PT consulted Subjective Subjective Interval history since last seen: Feels a lot better. Not thirsty. No more abdominal pain, nausea, or vomiting. Denies chest pain or shortness of breath. Feels a little dizzy when getting up, but otherwise thinks she feels well enough she could go home tomorrow. Exam Narrative Exam Narrative: General: Pleasant elderly female, laying flat in bed, comfortable HEENT: EOMI, MMM Heart: RRR, no m/r/g Lungs: CTAB Abdomen: soft, nontender, nondistended Extremities: no e/c/c BLE's Objective Objective Clinical Data: Abnormal lab results 11/25/19 11/25/19 11/25/19 Range/Units 19:50 22:20 22:20 Hgb (12.0-15.5) g/dL Hct (36.0-46.0) % Plt Count (130-400) x1000/uL MPV (8.0-11.0) fL Anion Gap 14.6 H 12.3 H (3-11) mmol/L Creatinine 1.21 H 1.14 H (0.55-1.02) mg/dL Glucose 368 H D 320 H (74-106) mg/dL Hemoglobin A1c (3.8-5.6) % Magnesium (1.8-2.4) mg/dL Troponin I 0.09 H* (<0.06) ng/Ml Ur Specific Renner (1.005-1.025) Urine Protein (Negative) mg/dL Urine Ketones (Negative) mg/dL Urine Bilirubin (Negative) Urine Glucose (Negative) mg/dL 11/26/19 11/26/19 11/26/19 Range/Units 01:15 05:10 06:56 Hgb 11.6 L D (12.0-15.5) g/dL Hct 34.3 L D (36.0-46.0) % Plt Count 88 L (130-400) x1000/uL MPV 11.2 H (8.0-11.0) fL Anion Gap (3-11) mmol/L Creatinine (0.55-1.02) mg/dL Glucose (74-106) mg/dL Hemoglobin A1c (3.8-5.6) % Magnesium (1.8-2.4) mg/dL Troponin I 0.08 H* (<0.06) ng/Ml Ur Specific Renner >= 1.030 H (1.005-1.025) Urine Protein 30 H (Negative) mg/dL Urine Ketones 80 H (Negative) mg/dL Urine Bilirubin Small H (Negative) Urine Glucose 500 H (Negative) mg/dL 11/26/19 11/26/19 Range/Units 06:56 06:56 Hgb (12.0-15.5) g/dL Hct (36.0-46.0) % Plt Count (130-400) x1000/uL MPV (8.0-11.0) fL Anion Gap (3-11) mmol/L Creatinine (0.55-1.02) mg/dL Glucose 325 H (74-106) mg/dL Hemoglobin A1c 10.0 H (3.8-5.6) % Magnesium 1.5 L (1.8-2.4) mg/dL Troponin I (<0.06) ng/Ml Ur Specific Renner (1.005-1.025) Urine Protein (Negative) mg/dL Urine Ketones (Negative) mg/dL Urine Bilirubin (Negative) Urine Glucose (Negative) mg/dL Vital Signs Temperature 36.6 C 11/26/19 11:45 Temperature Source Tympanic 11/26/19 11:45 Pulse 69 11/26/19 11:45 Pulse Rhythm Regular 11/26/19 07:50 Pulse 95 H 11/25/19 22:01 Respiratory Rate 18 11/26/19 11:45 Respiratory Effort 11/26/19 07:50 Respiratory Depth Normal 11/26/19 07:50 Respiratory Pattern Normal 11/26/19 07:50 Blood Pressure 131/77 11/26/19 11:45 Blood Pressure Mean 73 11/25/19 22:01 Blood Pressure Position Supine 11/25/19 15:13 Pulse Oximetry 99 11/26/19 11:45 Oxygen Delivery Method Room Air 11/26/19 11:45 Oxygen Flow Rate 0 11/26/19 11:45 Pain Level 0 11/26/19 11:45 Intake & Output 11/25/19 11/26/19 11/26/19 23:59 11:59 23:59 Intake Total 1542.746 / 2847.900 8239 / 2430 720 / 2430 Output Total 400 / 400 Balance 1542.746 / 4724.716 [id number] Weight 77.564 kg 78.3 kg Intake: IV 1542.746 / 1542.746 Oral 1710 / 2430 720 / 2430 Output: Urine 400 / 400 Other: Urine Color Yellow Urine Appearance Clear Urine Odor Normal Comment per patient she flushed Voiding Methods Toilet Laboratory Results WBC 6.26 k/cumm (4.4-10.8) D 11/26/19 06:56 RBC 4.05 m/cumm (4.00-5.20) 11/26/19 06:56 Hgb 11.6 g/dL (12.0-15.5) L D 11/26/19 06:56 Hct 34.3 % (36.0-46.0) L D 11/26/19 06:56 MCV 84.7 fL (80-95) 11/26/19 06:56 MCH 28.6 pg (27.0-33.0) 11/26/19 06:56 MCHC 33.8 g/dL (32.0-36.0) 11/26/19 06:56 RDW 14.5 % (11.7-14.6) 11/26/19 06:56 Plt Count 88 x1000/uL (130-400) L 11/26/19 06:56 MPV 11.2 fL (8.0-11.0) H 11/26/19 06:56 Immature Gran % 0.3 % 11/26/19 06:56 Neutrophils % 58.5 11/26/19 06:56 Lymphocytes % 33.2 11/26/19 06:56 Monocytes % 7.2 11/26/19 06:56 Eosinophils % 0.8 11/26/19 06:56 Basophils % 0.0 11/26/19 06:56 Absolute Neutrophils 3.66 k/cumm (1.2-6.7) 11/26/19 06:56 Absolute Lymphocytes 2.08 k/cumm (1.2-3.4) 11/26/19 06:56 Absolute Monocytes 0.45 k/cumm (0.11-0.7) 11/26/19 06:56 Absolute Eosinophils 0.05 k/cumm (0.0-0.7) 11/26/19 06:56 Absolute Basophils 0.00 k/cumm (0.0-0.2) 11/26/19 06:56 Differential Comment Plt morph reviewed 11/26/19 06:56 RBC Morphology See below 11/26/19 06:56 Polychromasia Present 11/26/19 06:56 VBG pH 7.32 (7.35-7.45) L 11/25/19 15:30 VBG pCO2 39 mm/Hg (34-47) 11/25/19 15:30 VBG pO2 25 mm/Hg (28-44) L 11/25/19 15:30 VBG HCO3 20 mmol/L (22-28) L 11/25/19 15:30 VBG Total CO2 18 mmol/L (22-29) L 11/25/19 15:30 VBG O2 Saturation 43 % (70-80) L 11/25/19 15:30 VBG Base Excess mmol/L (-3-3) 11/25/19 15:30 Sodium 138 mmol/L (136-145) 11/26/19 06:56 Potassium 4.1 mmol/L (3.5-5.1) 11/26/19 06:56 Chloride 102 mmol/L (98-107) 11/26/19 06:56 Carbon Dioxide 27.1 mmol/L (21.0-32.0) 11/26/19 06:56 Anion Gap 8.9 mmol/L (3-11) 11/26/19 06:56 BUN 15 mg/dL (7-18) 11/26/19 06:56 Creatinine 0.98 mg/dL (0.55-1.02) 11/26/19 06:56 Estimated GFR/1.73 m2 54.61 (mL/min/1.73m2) 11/26/19 06:56 Glucose 325 mg/dL (74-106) H 11/26/19 06:56 Hemoglobin A1c 10.0 % (3.8-5.6) H 11/26/19 06:56 Calcium 8.9 mg/dL (8.5-10.1) 11/26/19 06:56 Magnesium 1.5 mg/dL (1.8-2.4) L 11/26/19 06:56 Total Bilirubin 1.2 mg/dL (0.2-1.0) H 11/25/19 15:30 AST 12 U/L (15-37) L 11/25/19 15:30 ALT 14 U/L (14-59) 11/25/19 15:30 Alkaline Phosphatase 107 U/L (46-116) 11/25/19 15:30 Troponin I 0.05 ng/Ml (<0.06) 11/26/19 12:15 Total Protein 7.8 g/dL (6.4-8.2) 11/25/19 15:30 Albumin 3.7 g/dL (3.4-5.0) 11/25/19 15:30 Lipase 49 U/L (73-393) 11/25/19 15:30 Urine Color Yellow (Yellow) 11/26/19 05:10 Urine Clarity Clear (Clear) 11/26/19 05:10 Urine pH 5.5 (5-8) 11/26/19 05:10 Ur Specific Renner >= 1.030 (1.005-1.025) H 11/26/19 05:10 Urine Protein 30 mg/dL (Negative) H 11/26/19 05:10 Urine Ketones 80 mg/dL (Negative) H 11/26/19 05:10 Urine Blood Negative (Negative) 11/26/19 05:10 Urine Nitrite Negative (Negative) 11/26/19 05:10 Urine Bilirubin Small (Negative) H 11/26/19 05:10 Urine Urobilinogen 0.2 EU/dL (Up TO 0.2) 11/26/19 05:10 Ur Leukocyte Esterase Negative (Negative) 11/26/19 05:10 Urine RBC Negative HPF (0-2) 11/26/19 05:10 Urine WBC 0-2 HPF (0-5) 11/26/19 05:10 Ur Epithelial Cells Few HPF (Negative) 11/26/19 05:10 Urine Crystals Negative HPF (Negative) 11/26/19 05:10 Urine Bacteria Rare HPF (Negative) 11/26/19 05:10 Urine Casts Negative LPF (Negative) 11/26/19 05:10 Urine Mucus Negative (Negative) 11/26/19 05:10 Ur Culture Indicated? No 11/26/19 05:10 Urine Glucose 500 mg/dL (Negative) H 11/26/19 05:10
--- NOTE | 2019-11-26 18:52 | NUR.NOTE ---
Nursing Note: [employer] called for a nurse and VS machine from this room. This RN responded. Per [employer] AND [employer]IGHT INSTRUCTOR the patient was getting out of bed to have a bowel movement when the patient dropped. The FIRST OFFICER AND FLIGHT INSTRUCTOR said that she got the patient into bed so the patient did not fall to the floor. Once in bed the patient told the FIRST OFFICER AND FLIGHT INSTRUCTOR that she had felt dizzy. Patient was no longer feeling dizzy. VS done showing a BP lower than she had been earlier in the day. Primary RN notified
[2019-11-26] MEDS: Insulin Glargine 300 UNITS/3 ML PEN 20 UNITS SC (19:58)
[2019-11-26] MEDS: Normal Saline 250 ML 500 ML IV (20:25)
--- NOTE | 2019-11-26 22:03 | W.ORTHOCONSU ---
Date of service: 11/26/19 Time of Service: 07:32 History of Present Illness History of Present Illness Chief Complaint: Left Index and Middle Finger Amputations Narrative: Maria Dolores is an 79-year-old female who suffered a table saw injury to her left hand on November 10. She had severe injuries to the index and middle finger and a laceration to the thumb. I performed a revision amputation of the index and middle finger through the proximal phalanx of the middle and through the PIP joint of the index. She tolerated this well and was discharged home. She was seen in follow-up in 1 week with no sign of active infection. Sutures were not ready to come out. Unfortunately, she was admitted to the hospital for diabetic ketoacidosis and some general medical issues. She denies any drainage from the wounds. She has had no fevers but has had some abdominal pain, fatigue, rigors, and general ill feeling. She presented to her primary care physician and then to the emergency department and diagnosed with diabetic ketoacidosis. She has been hospitalized for this. She denies any significant issue with the fingers. She has been keeping them dressed. I was consulted for management of the finger amputations and wounds. She denies chest pain or shortness of breath. She has had some nausea and some vomiting and generalized GI upset and abdominal pain. 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 The wounds appear to be healing well. I see no signs of active infection. I see no signs of skin necrosis or skin failure. We can remove the sutures today. It does not need any formal dressing but can be kept covered with Band-Aids or soft gauze dressing. I reviewed some exercises, active assisted motion, for Maria Dolores to perform. This needs no further intervention. I see no signs to suggest there is an active infectious process ongoing, either soft tissue or bone. I will plan to see her in another 2 weeks in the office. Qualifiers: Encounter type: subsequent encounter Qualified Code(s): S68.621D - 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, subsequent encounter (2) Partial traumatic amputation of left middle finger through phalanx: Status: Acute Qualifiers: Encounter type: subsequent encounter Qualified Code(s): S68.623D - 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, subsequent encounter (3) Laceration of left thumb: Status: Acute Qualifiers: Encounter type: subsequent encounter Damage to nail status: without damage Foreign body presence: without foreign body Qualified Code(s): S61.012D - Laceration without foreign body of left thumb without damage to nail, subsequent encounter Review of Systems All systems reviewed & are unremarkable except as noted in HPI and below PFSH Medical History Acute renal failure syndrome due to NSAIDS Atherosclerosis of coronary artery [place] 1996 with subsequent PCI single stent; normal follow-up stress MPI November 16, 2014 bladder cancer 1995 Degenerative joint disease of right knee (Chronic) Aspiration/injection: 10/21/2019 Depressed mood (Acute) Diabetes mellitus, type 2 Edema extremities (Acute) dependency needs compression hose Essential hypertension Hypercholesterolemia Myocardial infarction 1996, subsequent PCI single stent Weight loss, non-intentional (Acute) Surgical History Amputation LONG FINGER RIGHT HAND- 1998 Appendectomy Biopsy of breast 05/13/17 RIGHT BREAST[place] [place]PAL TUNNEL 2002, 2010 Cholecystectomy Colonoscopy - IV Sedation [facility] [place] EGD - IV Sedation 2009 Extraction of cataract left 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 Diabetes Essential hypertension Heart disease BYPASS SURGERY Hyperlipidemia Father Diabetes Essential hypertension Heart disease SC Hyperlipidemia Myocardial infarction Sister No problems noted. Brother Essential hypertension Heart disease Hyperlipidemia Myocardial infarction Grandfather No problems noted. Grandfather No problems noted. Grandmother Diabetes Essential hypertension Hyperlipidemia Grandmother No problems noted. Son No problems noted. Daughter No problems noted. Social History Smoking/Tobacco Use Status: Former Tobacco Use Quit Date: 12/07/85 Alcohol Intake: current Alcohol Intake frequency: holidays/special occasions only Drug use: Never Substance use type: does not use Current gender identity: female Do you feel safe at home: Yes Do you feel safe in your relationship?: Yes Exam Narrative Exam Narrative: Evaluation of the left hand shows amputations of the index and middle fingers as well as a laceration of the thumb. Appearance of the wounds are benign. No signs of infection. No active drainage. No active bleeding. She has intact flexion through the index finger MCP joint. Finger flexion to the MCP joint the middle finger is more difficult but it is possible. There is some pain with doing so. The wounds appear to be healing appropriately. I see no signs of skin necrosis. There is notable swelling of the digits which is to be expected Results Last Vital Signs Temp 36.5 C 11/27/19 16:01 Pulse 79 11/27/19 16:01 Resp 18 11/27/19 16:01 BP 119/67 11/27/19 16:01 Pulse Ox 99 11/27/19 16:01 Labs Result diagrams: 11/27/19 07:03 11/27/19 12:22 Labs: Laboratory Results - last 24 hr 11/27/19 11/27/19 11/27/19 07:03 07:03 07:03 WBC 3.83 L D RBC 4.10 Hgb 11.8 L Hct 35.3 L MCV 86.1 MCH 28.8 MCHC 33.4 RDW 14.6 Plt Count 65 L MPV 11.9 H Immature Gran % 0.3 Neutrophils % 54.3 Lymphocytes % 37.1 Monocytes % 7.0 Eosinophils % 1.3 Basophils % 0.0 Absolute Neutrophils 2.08 Absolute Lymphocytes 1.42 Absolute Monocytes 0.27 Absolute Eosinophils 0.05 Absolute Basophils 0.00 Differential Comment Plt morph reviewed RBC Morphology See below Polychromasia Present Sodium 138 Potassium 4.0 Chloride 104 Carbon Dioxide 27.8 Anion Gap 6.2 BUN 13 Creatinine 0.96 Estimated GFR/1.73 m2 55.92 Glucose 298 H Calcium 8.8 Magnesium 1.9 Procalcitonin < 0.1 11/27/19 12:22 WBC RBC Hgb Hct MCV MCH MCHC RDW Plt Count MPV Immature Gran % Neutrophils % Lymphocytes % Monocytes % Eosinophils % Basophils % Absolute Neutrophils Absolute Lymphocytes Absolute Monocytes Absolute Eosinophils Absolute Basophils Differential Comment RBC Morphology Polychromasia Sodium Potassium Chloride Carbon Dioxide Anion Gap BUN Creatinine Estimated GFR/1.73 m2 Glucose 425 H D Calcium Magnesium Procalcitonin
[2019-11-26] MEDS: Simvastatin 20 MG TAB PO (22:38)
[2019-11-26] MEDS: rOPINIRole 0.5 MG TAB 1 MG PO (22:38)
[2019-11-27] VITALS (9 sets, daily range): BP systolic 95–122; BP diastolic 53–67; PULSE 69–88; RESP 17–18; TEMP 36.5–36.8; O2SAT 95–99
[2019-11-27] MEDS: Normal Saline Flush 10 ML SYR IVP ×2 (00:38→09:36)
[2019-11-27] MEDS: Pantoprazole 40 MG VIAL IVP (00:39)
[2019-11-27] MEDS: Levothyroxine 175 MCG TAB PO (06:49)
[2019-11-27 07:34] LABS: Abs Immature Grans 0.01 k/cumm (0.0-0.09); Absolute Eosinophil Count 0.05 k/cumm (0.0-0.7); Absolute Lymphocyte Count 1.42 k/cumm (1.2-3.4); Absolute Monocyte Count 0.27 k/cumm (0.11-0.7); Absolute Neutrophil Count 2.08 k/cumm (1.2-6.7); Eosinophils % 1.3; HCT 35.3 % (36.0-46.0); HGB 11.8 g/dL (12.0-15.5); Immature Grans % 0.3 %; Lymphocytes % 37.1; Mean Corp. HGB Concentration 33.4 g/dL (32.0-36.0); Mean Corpuscular Hemoglobin 28.8 pg (27.0-33.0); Mean Corpuscular Volume 86.1 fL (80-95); Mean Platelet Volume 11.9 fL (8.0-11.0); Neutrophils % 54.3; RBC Distribution Width 14.6 % (11.7-14.6); White Blood Cell Count 3.83 k/cumm (4.4-10.8)
[2019-11-27 07:35] LABS: Anion Gap 6.2 mmol/L (3-11); BUN 13 mg/dL (7-18); CO2 27.8 mmol/L (21.0-32.0); CREATININE 0.96 mg/dL (0.55-1.02); Calcium 8.8 mg/dL (8.5-10.1); Chloride 104 mmol/L (98-107); Estimated GFR 55.92 (mL/min/1.73m2); Glucose 298 mg/dL (74-106); Magnesium 1.9 mg/dL (1.8-2.4); Sodium 138 mmol/L (136-145)
[2019-11-27 07:53] LABS: Diff Comment PLT Morph Reviewed; Platelet Count 65 x1000/uL (130-400); Polychromasia Present
[2019-11-27] MEDS: Loratidine 10 MG TAB PO (09:24)
[2019-11-27] MEDS: Oxybutynin-CR 5 MG TABCR 10 MG PO (09:24)
[2019-11-27] MEDS: DULoxetine 30 MG CAP PO (09:24)
[2019-11-27] MEDS: Calcium 600mg/Vit D 200U TAB 1 TAB PO ×2 (09:24→20:02)
[2019-11-27] MEDS: Aspirin 81 MG CHEW CH (09:24)
[2019-11-27] MEDS: Metoprolol 50 MG TAB PO ×2 (09:24→20:02)
[2019-11-27] MEDS: Insulin Aspart 300 UNITS/3 ML PEN SC ×4 (09:25→22:19)
[2019-11-27] MEDS: Lisinopril 5 MG TAB PO (09:25)
[2019-11-27] MEDS: Insulin Glargine 300 UNITS/3 ML PEN 20 UNITS SC (09:25)
[2019-11-27] MEDS: Ascorbic Acid 500 MG TAB PO ×2 (09:25→20:02)
[2019-11-27 10:43] LABS: Procalcitonin < 0.1 ng/mL
[2019-11-27] MEDS: Insulin Glargine 300 UNITS/3 ML PEN 10 UNITS SC (10:58)
--- NOTE | 2019-11-27 11:11 | RESPIRATORY ---
Spoke with patient concerning MARIA L in medical records and was told she does not use a machine. Pt stated she tried a machine for 4-5 month and it caused her to not be able to sleep. She the company come pick the machine up and she felt it did not help her.
--- NOTE | 2019-11-27 12:23 | IN_ITS ---
Date of service: 11/27/19 Time of Service: 10:20 PT Notes Visit Reasons: ABDOMINAL PAIN, NAUSEA, DKA Inpatient Physical Therapy Evaluation Date: 11/27/19 Referring Doctor: Raya Beach MD PT Orders: PT CONSULT: Limited Ability Precautions: Standard Patient Profile/Admitting Diagnosis: Orders received for this 79-year-old female who is having trouble keeping down fluids and food at home. Patient was having multiple days of nausea and vomiting. She was having difficulty in starting to become weak. 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 She states that also recently she was utilizing a table saw and ended up partially amputating a few of the fingers on her left hand. Patient was admitted with diagnosis of diabetic ketoacidosis, dehydration, acute gastroenteritis, and essential hypertension. PMHX: Medical History (Updated 11/25/19 @ 23:56 by Ric Loaiza) Acute renal failure syndrome due to NSAIDS Atherosclerosis of coronary artery [place] 1996 with subsequent PCI single stent; normal follow-up stress MPI November 16, 2014 bladder cancer 1995 Degenerative joint disease of right knee (Chronic) Aspiration/injection: 10/21/2019 Depressed mood (Acute) Diabetes mellitus, type 2 Edema extremities (Acute) dependency needs compression hose Essential hypertension Hypercholesterolemia Myocardial infarction 1996, subsequent PCI single stent Weight loss, non-intentional (Acute) Surgical History Amputation LONG FINGER RIGHT HAND- 1998 Appendectomy Biopsy of breast 05/13/17 RIGHT BREAST-[facility] [place] CARPAL TUNNEL 2002, 2010 Cholecystectomy Colonoscopy - IV Sedation [facility] [place] 2003 EGD - IV Sedation 2009 Extraction of cataract left 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 (Inactive 04/16/19) Status post surgical debridement on 04/16/2019 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 (Inactive 04/16/19) Status post surgical debridement on 04/16/2019 PROCEDURES EXC HERNIA INTERVERTEBRAL DISC x2 Stent placement (~1996) RCA Social History/Home Situation: Lives at home with her who she cares for Equipment Owned/DME: Four-wheel walker Subjective: Patient states that she is feeling quite better although there is some dizziness when she is standing more of a lightheaded variety she does not describe any spinning sensation Objective: Patient sitting in chair, no medical lines in place Mental Status: Well oriented alert to person place and time Pain: 0 out of 10 ROM: Right Upper Extremity: Within functional limits Left Upper Extremity: Within functional limits Right Lower Extremity: Within functional limits Left Lower Extremity: Within functional limits Strength: Right Upper Extremity: Grossly 5 out of 5 Left Upper Extremity: Grossly 5 out of 5 Right Lower Extremity: Grossly 5 out of 5 Left Lower Extremity: Grossly 5 out of 5 Bed Mobility/Transfers: Not assessed Supine-sit: Not assessed Sit-stand: Contact-guard assist up into four-wheel walker Stand-sit: Contact-guard assist up into four-wheel walker Gait: Patient ambulates up to 50 feet with contact-guard assist and four-wheel walker. Patient does describe some lightheadedness when in a standing position and with rotating her head from side to side. Vestibular screen: Eyes closed standing patient has slight postural sway but no loss of balance upon 30 seconds with hands removed from the walker Headshake and head thrust test negative No sign of visual nystagmus upon cervical range of motion testing Smooth pursuit and saccadic eye movements appear to be within normal limits Balance: Static Sitting: Good Dynamic Sitting: Good Static Standing: Good Dynamic Standing: Fair Special Tests: Mobility Limitations Standardized Measure [facility]-PAC 6 clicks Basic Mobility Inpatient Short Form: Raw Score: 20 standardized Score: 47.67 CMS Score: 35.83% Informed Consent/Education: Patient instructed in purpose of PT consult and plan of care. ASSESSMENT: Patient is a 79-year-old female with a history of good physical health Admitted with diabetic ketoacidosis, dehydration Patient presents with the following impairment level findings: Slight dizziness with walking and with changing position of the head, mild ambulation i ntolerance, mild assistance needed for transferring Patient was screened for possibility of a benign vertigo however her symptomology does not significantly match up with a mechanical vestibular insul t. Pt will benefit from skilled therapy intervention in order to remedy their functional limitations and restore patient to a more appropriate and stable functional level. Impairments are contributing to the following functional limitations: AMPAC score 35.83% % Patient is assessed as a moderate complexity initial evaluation [id number] based on the following: History: see above Examination: see above Presentation: Evolving Decision Making: Based on impact at 35.83% % Goals: Goals X1 week 1. Supine-Sit independent 2. Sit-Supine independent 3. Sit-Stand independent with 4 wheel walker 4. Stand-Sit independent with four-wheel walker 5. Bed-Chair independent with four-wheel walker 6. Gait up to 50 feet with standby assist and four-wheel walker 7: Stairs up to 3 steps with standby assist Plan of Care/Treatment Plan: 1-2x/day, 7 days/week x 1 week. Plan of care has been reviewed with the INFLATED PAD BUFFER providing the service under Physical Therapy direction. Initiate Physical Therapy intervention for strengthening, bed mobility, transfers, gait, stairs, balance training, use of assistive device. DISCHARGE RECOMMENDATIONS: To home once medically stable TREATMENT CODE/TIME: Moderate complexity initial evaluation 55349, 15 minutes of direct billable care, 1020 to 1035 [facility]
[2019-11-27 12:58] LABS: Glucose 425 mg/dL (74-106)
--- NOTE | 2019-11-27 14:12 | W.PM.PROGNOT ---
Date of Service Date of service: 11/27/19 Time of Service: 14:13 Assessment and Plan Assessment and plan (1) DKA (diabetic ketoacidoses): Status: Resolved Assessment and plan: Anion gap has closed. A1C is 10.0. Blood sugar 425 this am. increase basal bolus. Diabetes education consulted. Hypotensive overnight requiring fluid bolus, leukopenia with thrombocytopenia worsening. Will d/c pantaprazole as this could be the cause. Qualifiers: Diabetes mellitus type: type 2 Diabetes mellitus complication detail: without coma Qualified Code(s): E11.10 - Type 2 diabetes mellitus with ketoacidosis without coma (2) Dehydration: Start date: 11/27/19 Start time: 14:23 Status: Resolved Assessment and plan: Resolved. Continue to encourage IVF (3) Gastroenteritis: Start date: 11/27/19 Start time: 14:23 Status: Resolved Assessment and plan: Resolved. No abdominal pain/nausea/diarrhea. Advance diet. Resume outpatient insulin regimen. (4) Essential hypertension: Start date: 11/27/19 Start time: 14:25 Status: Acute Assessment and plan: Continue Lisinopril and metoprolol tartrate BB held this am due to hypotension. Normotensive at this time continue to monitor. (5) Partial traumatic amputation of left middle finger through phalanx: Start date: 11/27/19 Start time: 14:25 Status: Acute Assessment and plan: Orthopedics consulted. Will need follow up as an outpatient. Hand is swollen, sutures removed yesterday. Dried blood to suture line. 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 In setting of DKA no EKG changes. Telemetry first degree avb in 70's. D/c telemetry (8) DVT prophylaxis: Start date: 11/27/19 Start time: 14:31 Status: Acute Assessment and plan: TEDs, SCDs. No chemical DVT ppx due to chronic thrombocytopenia (9) Discharge planning issues: Start date: 11/27/19 Start time: 14:32 Status: Acute Assessment and plan: Full code Likely discharge home tomorrow PT consulted Above case discussed with Dr. Loaiza who is in agreement. Subjective Subjective Patient reports: no new complaints Interval history since last seen: Feeling better. Best she has felt yet Mrs. Lazo states. Denies CP, SOB, N/V/D Exam Narrative Exam Narrative: General: Pleasant elderly female, laying flat in bed, comfortable HEENT: EOMI, MMM Heart: RRR, no m/r/g Lungs: CTAB Abdomen: soft, nontender, nondistended Extremities: no e/c/c BLE's Objective Objective Clinical Data: Abnormal lab results 11/27/19 11/27/19 11/27/19 Range/Units 07:03 07:03 12:22 WBC 3.83 L D (4.4-10.8) k/cumm Hgb 11.8 L (12.0-15.5) g/dL Hct 35.3 L (36.0-46.0) % Plt Count 65 L (130-400) x1000/uL MPV 11.9 H (8.0-11.0) fL Glucose 298 H 425 H D (74-106) mg/dL Vital Signs Temperature 36.6 C 11/27/19 11:32 Temperature Source Tympanic 11/27/19 11:32 Pulse 70 11/27/19 11:32 Pulse Rhythm Regular 11/27/19 09:30 Pulse 95 H 11/25/19 22:01 Respiratory Rate 17 11/27/19 11:32 Respiratory Effort Non-Labored 11/27/19 09:30 Respiratory Depth Normal 11/27/19 09:30 Respiratory Pattern Normal 11/27/19 09:30 Blood Pressure 122/61 11/27/19 11:32 Blood Pressure Mean 73 11/25/19 22:01 Blood Pressure Position Supine 11/25/19 15:13 Pulse Oximetry 99 11/27/19 11:32 Oxygen Delivery Method Room Air 11/27/19 11:32 Oxygen Flow Rate 0 11/27/19 11:32 Pain Level 0 11/27/19 11:32 Intake & Output 11/26/19 11/27/19 11/27/19 23:59 11:59 23:59 Intake Total 920 / 2630 150 / 160 10 / 160 Output Total 0 / 0 Balance 920 / 2230 150 / 160 10 / 160 Weight 78.7 kg Intake: IV Oral 920 / 2630 150 / 150 Output: Urine 0 / 0 Other: Urine Color Yellow Urine Appearance Clear Clear Comment VOIDED LARGE AMT IN TOILET. voids in toilet independently. Stool Size Moderate Stool Characteristics Formed Voiding Methods Incontinent Toilet Toilet Laboratory Results WBC 3.83 k/cumm (4.4-10.8) L D 11/27/19 07:03 RBC 4.10 m/cumm (4.00-5.20) 11/27/19 07:03 Hgb 11.8 g/dL (12.0-15.5) L 11/27/19 07:03 Hct 35.3 % (36.0-46.0) L 11/27/19 07:03 MCV 86.1 fL (80-95) 11/27/19 07:03 MCH 28.8 pg (27.0-33.0) 11/27/19 07:03 MCHC 33.4 g/dL (32.0-36.0) 11/27/19 07:03 RDW 14.6 % (11.7-14.6) 11/27/19 07:03 Plt Count 65 x1000/uL (130-400) L 11/27/19 07:03 MPV 11.9 fL (8.0-11.0) H 11/27/19 07:03 Immature Gran % 0.3 % 11/27/19 07:03 Neutrophils % 54.3 11/27/19 07:03 Lymphocytes % 37.1 11/27/19 07:03 Monocytes % 7.0 11/27/19 07:03 Eosinophils % 1.3 11/27/19 07:03 Basophils % 0.0 11/27/19 07:03 Absolute Neutrophils 2.08 k/cumm (1.2-6.7) 11/27/19 07:03 Absolute Lymphocytes 1.42 k/cumm (1.2-3.4) 11/27/19 07:03 Absolute Monocytes 0.27 k/cumm (0.11-0.7) 11/27/19 07:03 Absolute Eosinophils 0.05 k/cumm (0.0-0.7) 11/27/19 07:03 Absolute Basophils 0.00 k/cumm (0.0-0.2) 11/27/19 07:03 Differential Comment Plt morph reviewed 11/27/19 07:03 RBC Morphology See below 11/27/19 07:03 Polychromasia Present 11/27/19 07:03 VBG pH 7.32 (7.35-7.45) L 11/25/19 15:30 VBG pCO2 39 mm/Hg (34-47) 11/25/19 15:30 VBG pO2 25 mm/Hg (28-44) L 11/25/19 15:30 VBG HCO3 20 mmol/L (22-28) L 11/25/19 15:30 VBG Total CO2 18 mmol/L (22-29) L 11/25/19 15:30 VBG O2 Saturation 43 % (70-80) L 11/25/19 15:30 VBG Base Excess mmol/L (-3-3) 11/25/19 15:30 Sodium 138 mmol/L (136-145) 11/27/19 07:03 Potassium 4.0 mmol/L (3.5-5.1) 11/27/19 07:03 Chloride 104 mmol/L (98-107) 11/27/19 07:03 Carbon Dioxide 27.8 mmol/L (21.0-32.0) 11/27/19 07:03 Anion Gap 6.2 mmol/L (3-11) 11/27/19 07:03 BUN 13 mg/dL (7-18) 11/27/19 07:03 Creatinine 0.96 mg/dL (0.55-1.02) 11/27/19 07:03 Estimated GFR/1.73 m2 55.92 (mL/min/1.73m2) 11/27/19 07:03 Glucose 425 mg/dL (74-106) H D 11/27/19 12:22 Hemoglobin A1c 10.0 % (3.8-5.6) H 11/26/19 06:56 Calcium 8.8 mg/dL (8.5-10.1) 11/27/19 07:03 Magnesium 1.9 mg/dL (1.8-2.4) 11/27/19 07:03 Total Bilirubin 1.2 mg/dL (0.2-1.0) H 11/25/19 15:30 AST 12 U/L (15-37) L 11/25/19 15:30 ALT 14 U/L (14-59) 11/25/19 15:30 Alkaline Phosphatase 107 U/L (46-116) 11/25/19 15:30 Troponin I 0.05 ng/Ml (<0.06) 11/26/19 12:15 Total Protein 7.8 g/dL (6.4-8.2) 11/25/19 15:30 Albumin 3.7 g/dL (3.4-5.0) 11/25/19 15:30 Lipase 49 U/L (73-393) 11/25/19 15:30 Procalcitonin < 0.1 ng/mL 11/27/19 07:03 Urine Color Yellow (Yellow) 11/26/19 05:10 Urine Clarity Clear (Clear) 11/26/19 05:10 Urine pH 5.5 (5-8) 11/26/19 05:10 Ur Specific [place] >= 1.030 (1.005-1.025) H 11/26/19 05:10 Urine Protein 30 mg/dL (Negative) H 11/26/19 05:10 Urine Ketones 80 mg/dL (Negative) H 11/26/19 05:10 Urine Blood Negative (Negative) 11/26/19 05:10 Urine Nitrite Negative (Negative) 11/26/19 05:10 Urine Bilirubin Small (Negative) H 11/26/19 05:10 Urine Urobilinogen 0.2 EU/dL (Up TO 0.2) 11/26/19 05:10 Ur Leukocyte Esterase Negative (Negative) 11/26/19 05:10 Urine RBC Negative HPF (0-2) 11/26/19 05:10 Urine WBC 0-2 HPF (0-5) 11/26/19 05:10 Ur Epithelial Cells Few HPF (Negative) 11/26/19 05:10 Urine Crystals Negative HPF (Negative) 11/26/19 05:10 Urine Bacteria Rare HPF (Negative) 11/26/19 05:10 Urine Casts Negative LPF (Negative) 11/26/19 05:10 Urine Mucus Negative (Negative) 11/26/19 05:10 Ur Culture Indicated? No 11/26/19 05:10 Urine Glucose 500 mg/dL (Negative) H 11/26/19 05:10
--- NOTE | 2019-11-27 17:23 | CMPROGNOTE_ITS ---
- If Service Date Differs Date of service: 11/27/19 Time of Service: 17:23 Care Management Progress Note S/O: Maria Dolores was sitting up in a chair when CM met with her. She was very pleasant and engaged readily in conversation. Maria Dolores shared the struggles she has been having caring for Sanchez. She said that he does not wander off but likes to be outside and active. He walks a couple of hundred yards to the mailbox each day and snowblows the driveway after winter storms. She also shared that sometimes he is not very nice and seems to like to goad people, targeting their weaknesses or vulnerability. She admitted that she became depressed dealing with this every day but has been doing much better since her doctor gave her an antidepressant. She is anxious that she be discharged early tomorrow so that Sanchez does not need to drive to pick her up. Their daughter and her are here right now but need to leave around noontime tomorrow to return to [place] where they both work and live. A: Maria Dolores is a mario 79 year old woman admitted on 11/25/19 with DKA. P:Maria Dolores remains acute at this time. Her blood sugars have improved as have symptom management of nausea and pain. Anticipate Maria Dolores will return home when medically ready with resumption of community services. CM has sent referrals for patient and to [facility]. CM will continue to support patient, family and discharge planning needs.
[2019-11-27] MEDS: Insulin Glargine 300 UNITS/3 ML PEN 30 UNITS SC (20:03)
[2019-11-27] MEDS: rOPINIRole 0.5 MG TAB 1 MG PO (22:18)
[2019-11-27] MEDS: Simvastatin 20 MG TAB PO (22:18)
[2019-11-28 03:39] VITALS: BP 104/57; PULSE 70; RESP 17; TEMP 36.5; O2SAT 96
[2019-11-28] MEDS: Levothyroxine 175 MCG TAB PO (05:31)
[2019-11-28 07:35] VITALS: BP 136/77; PULSE 72; RESP 18; TEMP 36.6; O2SAT 98
[2019-11-28 08:35] LABS: HCT 36.7 % (36.0-46.0); HGB 12.5 g/dL (12.0-15.5); Mean Corp. HGB Concentration 34.1 g/dL (32.0-36.0); Mean Corpuscular Hemoglobin 29.1 pg (27.0-33.0); Mean Corpuscular Volume 85.5 fL (80-95); Mean Platelet Volume 11.7 fL (8.0-11.0); RBC 4.29 m/cumm (4.00-5.20); RBC Distribution Width 14.4 % (11.7-14.6)
[2019-11-28 08:40] LABS: Anion Gap 8.2 mmol/L (3-11); BUN 17 mg/dL (7-18); CO2 27.8 mmol/L (21.0-32.0); CREATININE 0.82 mg/dL (0.55-1.02); Calcium 9.5 mg/dL (8.5-10.1); Chloride 104 mmol/L (98-107); Glucose 161 mg/dL (74-106); Potassium 4.1 mmol/L (3.5-5.1); Sodium 140 mmol/L (136-145)
[2019-11-28 08:50] LABS: Platelet Count 69 x1000/uL (130-400)
[2019-11-28] MEDS: Ascorbic Acid 500 MG TAB PO (09:21)
[2019-11-28] MEDS: Famotidine 20 MG TAB PO (09:21)
[2019-11-28] MEDS: Oxybutynin-CR 5 MG TABCR 10 MG PO (09:21)
[2019-11-28] MEDS: Metoprolol 50 MG TAB PO (09:21)
[2019-11-28] MEDS: Calcium 600mg/Vit D 200U TAB 1 TAB PO (09:21)
[2019-11-28] MEDS: DULoxetine 30 MG CAP PO (09:21)
[2019-11-28] MEDS: Aspirin 81 MG CHEW CH (09:22)
[2019-11-28] MEDS: Lisinopril 5 MG TAB PO (09:22)
[2019-11-28] MEDS: Insulin Aspart 300 UNITS/3 ML PEN SC ×2 (09:22→12:22)
[2019-11-28] MEDS: Loratidine 10 MG TAB PO (09:22)
--- NOTE | 2019-11-28 09:47 | PT.INTREAT ---
Date of service: 11/28/19 Time of Service: 09:47 PT Notes Visit Reasons: ABDOMINAL PAIN, NAUSEA, DKA 11/28/19 SUBJECTIVE: Maria Dolores stating she feels much better. She is hopeful to go home today. OBJECTIVE: Pt seated in her chair. Agreeable to PT treatment. TRANSFERS Sit to stand: I Stand to sit: I GAIT Device: 4WW Weight bearing: Full Assist: SBA Distance: 100' ASSESSMENT: Tolerates progression in her gait distance well. No LOB or complaints of dizziness. We discuss increase in activity progression at home and pt is in agreement with this. PLAN: Continue per POC. Treatment time: 530 Mel Ingram PTA
[2019-11-28] MEDS: Insulin Glargine 300 UNITS/3 ML PEN 30 UNITS SC (09:58)
--- NOTE | 2019-11-28 10:26 | DSE_ITS ---
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 Does not have any pain at this time. (2) Partial traumatic amputation of left middle finger through phalanx: Status: Acute (3) Laceration of left thumb: Start date: 11/28/19 Start time: Status: Acute Asessment and Plan: See above (4) DKA (diabetic ketoacidoses): Start date: 11/28/19 Start time: : Status: Resolved Asessment and Plan: Due to n/v dehydration. Resolved. Continue basal bolus along with home insulin regimen. Discharge Plan Disposition Patient Disposition: HOME Condition: Good Discharge Details Chief Complaint: Nausea/Vomit/Diar Clinical Impression: Diabetes mellitus, type 2, DKA (diabetic ketoacidoses), Acute dehydration, Nausea and vomiting Reason For Visit: ABDOMINAL PAIN, NAUSEA, DKA Admit Date/Time: 11/25/19 21:12 Admit Provider: Ric Loaiza Attending Provider: Ric Loaiza Primary Care Provider: Houston Hilario ED Provider: Fredy Whittaker Hospital Course Hospital Course: 79 y.o female with PMH of DM insulin dependent, HTN, hypothyroidism, coronary athersclerosis. She was admitted from [facility] ED for n/v due to acute gastroenteritis causing DKA with anion gap 22.2 and bicarb level 20.8. On admission she was given fluids,, insulin and antiemetics. Within 24 hours of admission her anion gap normalized. Nausea and vomiting subsided. Started on basal bolus insulin with sliding scale coverage. Basal bolus was increased yesterday to 30 units BID with fingersticks between 171-146 down from 400's. She is feeling better no nausea or vomiting reported in last 48 hours. Yesterday cbc revealed thrombocytopenia and leukopenia. Pantprazole was held, pepcid initiated and cbc this am has normalized; platelet count still low but increasing and appears to always run on the lower side. She is feeling well and therefore will be discharged home. On her left hand prior to admission she amputated her pointer finger, second finger and thumb with saw. Seen by ortho while hospitalized she will need to follow up with them in the office. Recommend seeing PCP in one 1 week. Repeat CBC in 3-4 days. She denies CP, N/V/D, SOB. Home Meds and New Rx's Prescriptions: New famotidine 20 mg Tablet 20 mg PO DAILY Qty: 30 RF: 0 Continued insulin aspart U-100 [Novolog U-100 Insulin aspart] 100 unit/mL solution 20 - 40 unit subcut AC Qty: 13 RF: 3 metoprolol tartrate 50 mg tablet 50 mg PO BID Qty: 180 RF: 4 nitroglycerin [Nitrostat] 0.4 mg tablet, sublingual 0.4 mg Sublingual PRN Qty: 25 RF: 0 oxybutynin chloride [Ditropan XL] 10 mg tablet extended release 24hr 10 mg PO DAILY Qty: 90 RF: 4 potassium gluconate 595 mg (99 mg) tablet 595 mg PO DAILY Qty: 90 RF: 3 ropinirole 0.5 mg tablet 0.5 - 1.5 mg PO HS Qty: 270 RF: 3 simvastatin [Zocor] 20 mg tablet 20 mg PO HS Qty: 90 RF: 4 levothyroxine [Synthroid] 175 mcg tablet 175 mcg PO DAILY Qty: 90 RF: 4 lisinopril 5 mg tablet 5 mg PO DAILY Qty: 90 RF: 4 duloxetine 30 mg capsule,delayed release(DR/EC) 30 mg PO DAILY Qty: 30 RF: 2 Lantus U-100 Insulin 100 unit/mL solution 10 - 30 unit subcut BID RF: 0 Januvia 50 mg tablet 50 mg PO DAILY Qty: 90 RF: 3 ASPIRIN 81 MG tablet 81 mg PO DAILY RF: 0 ascorbic acid (vitamin C) [Vitamin C] 500 MG tablet 500 mg PO BID RF: 0 loratadine [Claritin] 10 MG tablet 10 mg PO DAILY Qty: 90 RF: 4 Glucosamine Complex-MSM 1 EACH capsule 1 ea PO BID RF: 0 CALCIUM 600 + D TABLET 1 EACH tablet 1 ea PO BID RF: 0 SYSTANE 0.3-0.4% EYE DROPS 5 ML drops 1 drp OU DAILY RF: 0 loperamide [Anti-Diarrheal (loperamide)] 1 MG/5 ML liquid 4 mg PO PRN RF: 0 meclizine 25 MG tablet,chewable 25 mg PO TID PRNQty: 30 RF: 0 Bel[place] 150 mcg film 150 mcg BC Q12H Qty: 60 RF: 0 ibuprofen 600 mg tablet 600 mg PO TID PRNQty: 90 RF: 3 acetaminophen 500 mg tablet 1,000 mg PO Q8H PRN (Reason: pain) Qty: 60 RF: 3 No Action (DME) BD Insulin Syringe 1 EACH syringe 1 ea Sub-Q DIRECTED RF: 0 (DME) blood-glucose meter [OneTouch Ultra System Kit] 1 EACH kit 1 ea Miscellaneous QID Qty: 1 RF: 0 (DME) OneTouch Ultra Test 1 EACH strip 1 strip Sub-Q 5-6x/day Qty: 500 RF: 4 Discharge Instructions Instructions: Dehydration (DC), Transmetatarsal Amputation (DC), Diabetic Ketoacidosis (DC), Gastroenteritis (DC) Additional Instructions: Take 30 units lantus twice a day Take pepcid daily Follow up with orthopedic surgery for your hand. Follow up with your primary provider in 1 week Repeat lab work in 3-4 days. Just come here, order is already placed, it will go to your primary provider. Recommend follow up with Gastrointestional Provider for further work up of possible cirrhosis. Stand Alone Forms: Nursing Discharge Form Referrals: Houston Hilario [Primary Care Provider] - (Please call Friday to make a follow up appointment. ) Activity:: Activity as Tolerated Equipment/Supplies:: No Equipment Needed Diet:: Carb Counting Discharge Orders Discharge Orders: Discharge Order (Routine); Ordered 11/28/19 Ordered By: Daysi Garibay Other Ambulatory Orders: Complete Blood Count No Diff (Routine) Location: None Selected Ordered By: Daysi Garibay DS: Summary Status at Discharge Functional status at discharge: independent ambulation Overall status at discharge: patient is back to baseline Mental Status: mental status grossly normal Speech and Movement: speech and movement normal Mood: congruent mood Affect: normal affect Exam Narrative Exam Narrative: General: Pleasant elderly female, laying flat in bed, comfortable HEENT: EOMI, MMM Heart: RRR, no m/r/g Lungs: CTAB Abdomen: soft, nontender, nondistended Extremities: no e/c/c BLE's Psych Mental Status: mental status grossly normal Speech and Movement: speech and movement normal Mood: congruent mood Affect: normal affect DS: Data Vitals/I&O Vitals and I&O: Vital Signs Temperature 36.6 C 11/28/19 07:35 Temperature Source Tympanic 11/28/19 07:35 Pulse 72 11/28/19 07:35 Pulse Rhythm Regular 11/28/19 04:05 Pulse 95 H 11/25/19 22:01 Respiratory Rate 18 11/28/19 07:35 Respiratory Effort Non-Labored 11/28/19 04:05 Respiratory Depth Normal 11/28/19 04:05 Respiratory Pattern Normal 11/28/19 04:05 Blood Pressure 136/77 11/28/19 07:35 Blood Pressure Mean 73 11/25/19 22:01 Blood Pressure Position Supine 11/25/19 15:13 Pulse Oximetry 98 11/28/19 07:35 Oxygen Delivery Method Room Air 11/28/19 07:35 Oxygen Flow Rate 0 11/28/19 07:35 Pain Level 0 11/28/19 07:35 Intake & Output 11/27/19 11/27/19 11/28/19 11:59 23:59 11:59 Intake Total 150 / 1890 1740 / 1890 Output Total 0 / 0 Balance 150 / 1890 1740 / 1890 Weight 78.7 kg 81.9 kg Intake: IV 1260 / 1260 Oral 150 / 630 480 / 630 Output: Urine 0 / 0 Other: Urine Color Yellow Yellow Urine Appearance Clear Clear Clear Urine Odor None Comment VOIDED LARGE AMT IN TOILET. voids in toilet independently. voids in toilet independently. Can be slightly incontinent during NOC Voiding Methods Toilet Toilet Toilet Diaper Data Completed and Pending Completed studies during hospitalization [Text1]: EXAM: CT ABDOMEN PELVIS WO CLINICAL HISTORY: vomiting, epigastric abdominal pain, NPO 3 days TECHNIQUE: CT examination of the abdomen and pelvis was performed without contrast administration. COMPARISON: CT BRAIN NECK CTA from 06/13/2019 FINDINGS: Images obtained through the lung bases are unremarkable. There are severe degenerative changes of the lumbar spine with a left convex lumbar scoliosis The hepatic contour is nodular raising the possibility of cirrhosis. No focal hepatic lesion by noncontrast criteria. Unremarkable appearance of the spleen. Unremarkable appearance of the pancreas. Gallbladder not well visualized. No biliary dilatation. Adrenals are unremarkable in appearance bilaterally. No evidence of urinary tract calcification or obstruction. No gross renal mass by noncontrast criteria. Abdominal aorta is of normal diameter. No gross abdominal or pelvic adenopathy. No significant abdominal wall hernia. No evidence of bowel obstruction. Appendix not specifically visualized but there is no evidence of appendicitis or diverticulitis. [employer] structures grossly unremarkable. IMPRESSION: Findings of nodular hepatic contour raising the possibility of cirrhosis. No acute findings COMPARISON: CT ABD PELVIS WITH CONTRAST 12/24/2016 10:24 AM FINDINGS: Liver: The liver surface is nodular. Gallbladder and bile ducts: Normal. No calcified stones. No ductal dilation. Pancreas: Normal. No ductal dilation. Spleen: Normal. No splenomegaly. Adrenals: Normal. No mass. Kidneys and ureters: Normal. No hydronephrosis. Stomach and bowel: Unremarkable. No obstruction. No mucosal thickening. Appendix: No evidence of appendicitis. Intraperitoneal space: Unremarkable. No free air. No significant fluid collection. Vasculature: Atherosclerotic calcification of the aorta and the major vessels. Lymph nodes: Unremarkable. No enlarged lymph nodes. Bladder: Unremarkable as visualized. Reproductive: Unremarkable as visualized. Bones/joints: Diffuse demineralization of the bones. Soft tissues: Unremarkable. IMPRESSION: No acute abdominal or pelvic abnormality. Liver surface is slightly irregular/nodular which may represent cirrhosis. Labs on day of discharge: Labs from last 24 hours 11/28/19 11/28/19 11/27/19 08:20 08:20 12:22 WBC 5.20 D RBC 4.29 Hgb 12.5 Hct 36.7 MCV 85.5 MCH 29.1 MCHC 34.1 RDW 14.4 Plt Count 69 L MPV 11.7 H Sodium 140 Potassium 4.1 Chloride 104 Carbon Dioxide 27.8 Anion Gap 8.2 BUN 17 Creatinine 0.82 Estimated GFR/1.73 m2 >= 60.00 Glucose 161 H D 425 H D Calcium 9.5 Procalcitonin 11/27/19 07:03 WBC RBC Hgb Hct MCV MCH MCHC RDW Plt Count MPV Sodium Potassium Chloride Carbon Dioxide Anion Gap BUN Creatinine Estimated GFR/1.73 m2 Glucose Calcium Procalcitonin < 0.1 PFSH Medical History Acute renal failure syndrome due to NSAIDS Atherosclerosis of coronary artery [place] 1996 with subsequent PCI single stent; normal follow-up stress MPI November 16, 2014 bladder cancer 1996 Degenerative joint disease of right knee (Chronic) Aspiration/injection: 10/21/2019 Depressed mood (Acute) Diabetes mellitus, type 2 Edema extremities (Acute) dependency needs compression hose Essential hypertension Hypercholesterolemia Myocardial infarction 1996, subsequent PCI single stent Weight loss, non-intentional (Acute) Surgical History Amputation LONG FINGER RIGHT HAND- 1998 Appendectomy Biopsy of breast 05/13/17 RIGHT BREAST[place] [place]PAL [place] 2002, 2010 Cholecystectomy Colonoscopy - IV Sedation [facility] [place] EGD - IV Sedation 2009 Extraction of cataract left 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 Diabetes Essential hypertension Heart disease BYPASS SURGERY Hyperlipidemia Father Diabetes Essential hypertension Heart disease [place] Hyperlipidemia Myocardial infarction Sister No problems noted. Brother Essential hypertension Heart disease Hyperlipidemia Myocardial infarction Grandfather No problems noted. Grandfather No problems noted. Grandmother Diabetes Essential hypertension Hyperlipidemia Grandmother No problems noted. Son No problems noted. Daughter No problems noted. Social History Smoking/Tobacco Use Status: Former Tobacco Use Quit Date: 12/07/85 Alcohol Intake: current Alcohol Intake frequency: holidays/special occasions only Drug use: Never Substance use type: does not use Current gender identity: female Do you feel safe at home: Yes Do you feel safe in your relationship?: Yes
[2019-11-28 11:51] VITALS: BP 145/66; PULSE 77; RESP 17; TEMP 36.9; O2SAT 99
--- NOTE | 2019-11-28 17:27 | CMDISCH_ITS ---
- If Service Date Differs Date of service: 11/28/19 Time of Service: 17:27 LACE Index Scoring Tool - Questions: Length of Stay (in days): 3 Acuity (Admit via E.D.?): Yes Comorbidities: Previous M.I., Diabetes w/o Complication, Any Tumor, Liver or Renal Disease E.D. Visits: 5 - Answers: Total Score: 15 Risk of Readmission: High Risk Care Management Discharge Reason for Hospitalization: Abdominal pain, nausea, DKA Discharge Plan: Parul will return home with resumption of community services (application filed for MOW through [facility]). Referrals have been sent for patient and to [facility]. parul will follow up with her PCP and discharge plan of care. She bogdan transport via private vehicle with her family. Patient/Family Education Needs: Discharge plan, limiattions, follow up plan, Ask Me Three.
--- NOTE | 2019-11-29 08:36 | INDS_ITS ---
Date of service: 11/29/19 Time of Service: 08:36 PT Notes Visit Reasons: ABDOMINAL PAIN, NAUSEA, DKA PT Inpatient Discharge Summary Date: 11/29/19 Referring Doctor: Raya Beach MD PT Orders: PT CONSULT: Limited Ability Precautions: Standard Patient Profile/Admitting Diagnosis: Orders received for this 79-year-old female who is having trouble keeping down fluids and food at home. Patient was having multiple days of nausea and vomiting. She was having difficulty in starting to become weak. 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 She states that also recently she was utilizing a table saw and ended up partially amputating a few of the fingers on her left hand. Patient was admitted with diagnosis of diabetic ketoacidosis, dehydration, acute gastroenteritis, and essential hypertension. PMHX: Medical History (Updated 11/25/19 @ 23:56 by Ric Loaiza) Acute renal failure syndrome due to NSAIDS Atherosclerosis of coronary artery PR 1996 with subsequent PCI single stent; normal follow-up stress MPI November 16, 2014 bladder cancer 1995 Degenerative joint disease of right knee (Chronic) Aspiration/injection: 10/21/2019 Depressed mood (Acute) Diabetes mellitus, type 2 Edema extremities (Acute) dependency needs compression hose Essential hypertension Hypercholesterolemia Myocardial infarction 1996, subsequent PCI single stent Weight loss, non-intentional (Acute) Surgical History Amputation LONG FINGER RIGHT HAND- 1998 Appendectomy Biopsy of breast 05/13/17 RIGHT BREAST-[facility] CARPAL TUNNEL 2002, 2010 Cholecystectomy Colonoscopy - IV Sedation [facility] 2003 EGD - IV Sedation 2009 Extraction of cataract left 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 (Inactive 04/16/19) Status post surgical debridement on 04/16/2019 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 (Inactive 04/16/19) Status post surgical debridement on 04/16/2019 PROCEDURES EXC HERNIA INTERVERTEBRAL DISC x2 Stent placement (~1996) RCA Social History/Home Situation: Lives at home with her who she cares for Equipment Owned/DME: Four-wheel walker Subjective: NT Objective: NT Mental Status: NT Pain: NT ROM: Right Upper Extremity: Within functional limits Left Upper Extremity: Within functional limits Right Lower Extremity: Within functional limits Left Lower Extremity: Within functional limits Strength: Right Upper Extremity: Grossly 5 out of 5 Left Upper Extremity: Grossly 5 out of 5 Right Lower Extremity: Grossly 5 out of 5 Left Lower Extremity: Grossly 5 out of 5 Bed Mobility/Transfers: Not assessed Supine-sit: Independent Sit-stand: Independent Stand-sit: Independent Gait: Patient ambulates up to 100 feet with standby assist and four-wheel walker. Balance: Static Sitting: Good Dynamic Sitting: Good Static Standing: Good Dynamic Standing: Fair ASSESSMENT: Patient is a 79-year-old female with a history of good physical health Admitted with diabetic ketoacidosis, dehydration Patient presents with the following impairment level findings: Slight dizziness with walking and with changing position of the head, mild ambulation intolerance, mild assistance needed for transferring Patient was screened for possibility of a benign vertigo however her symptomology does not significantly match up with a mechanical vestibular insult. Goals X1 week 1. Supine-Sit independent MET 2. Sit-Supine independent MET 3. Sit-Stand independent with 4 wheel walker MET 4. Stand-Sit independent with four-wheel walker MET 5. Bed-Chair independent with four-wheel walker MET 6. Gait up to 50 feet with standby assist and four-wheel walker NOT MET 7: Stairs up to 3 steps with standby assist NOT MET DISCHARGE RECOMMENDATIONS: To home once medically stable with resumption of community services. TREATMENT CODE/TIME: NC. Thank you very much for this referral. Karen Elena PT, DPT, CLT [facility] Inpatient PT at [facility]
== END 2019-11-28 13:52 | disposition home or self-care (01) | DRG 639 ==
LOC: ER 16:24 → MS 22:46
PROVIDERS: Internal Medicine; Nurse Practitioner Family; Admitting Provider Internal Medicine; Emergency Provider Student in an Organized Health Care Education/Training Program; PCP Family Medicine; Visit Provider Internal Medicine
DX: E11.10 Type 2 diabetes mellitus with ketoacidosis without coma (principal); K52.89 Other specified noninfective gastroenteritis and colitis; E86.0 Dehydration; R79.89 Other specified abnormal findings of blood chemistry; Z79.4 Long term (current) use of insulin; I10 Essential (primary) hypertension; E03.9 Hypothyroidism, unspecified; D69.6 Thrombocytopenia, unspecified; I25.10 Atherosclerotic heart disease of native coronary artery without angina pectoris; Z98.890 Other specified postprocedural states; S68.621D 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, subsequent encounter; S68.623D Partial traumatic transphalangeal amputation of left middle finger, subsequent encounter; S68.522D Partial traumatic transphalangeal amputation of left thumb, subsequent encounter; X58.XXXD Exposure to other specified factors, subsequent encounter; F32.9 Major depressive disorder, single episode, unspecified
CPT/HCPCS: 36415; 36416; 80048; 80053; 82533; 82805; 82947; 82962; 83690; 84145; 85027; 96361; 96365; 96366; 96372; 96375; 96376; 97162; 97530; 99222; 99223; 99232; 99233; 99239; 99253; 99291; 74176; 81003; 81015; 83036; 83735; 84484; 85025; 93005; 93010; J2405; J3475

== ENCOUNTER → 2019-12-13 15:03 | Outpatient (BNVA) | payer MEDICARE, OTHER, SELFPAY | PROVIDERS: PCP Family Medicine; Referring Provider Family Medicine; Visit Provider Student in an Organized Health Care Education/Training Program | DX: S68.621D 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, subsequent encounter (principal); S68.623D Partial traumatic transphalangeal amputation of left middle finger, subsequent encounter; X58.XXXD Exposure to other specified factors, subsequent encounter ==

== ENCOUNTER → 2019-12-20 14:11 | Outpatient (BNVA) | payer MEDICARE, OTHER, SELFPAY | PROVIDERS: PCP Family Medicine; Referring Provider Family Medicine; Visit Provider Student in an Organized Health Care Education/Training Program | DX: M25.561 Pain in right knee (principal); M17.11 Unilateral primary osteoarthritis, right knee | CPT/HCPCS: 99213; L1820 ==